=== PATIENT | female | born 1945 | race Caucasian/White ===

== ENCOUNTER 2017-03-14 17:29 | Inpatient (IN) ==
[~2017-03-14 17:29] MED LIST: LIDOCAINE 2% 5 ML VIAL ONE; PROPOFOL 200 MG/20 ML VIAL IV ONE
[2017-03-14] MEDS ORDERED: ACETAMINOPHEN 325 MG TABLET PO PRN (18:13)
[2017-03-14] MEDS ORDERED: BUDESONIDE 0.25 MG/2 ML NEB RESP TX PRN (18:13)
[2017-03-14] MEDS ORDERED: NITROGLYCERIN SL 0.4 MG TABLET SL PRN (18:13)
[2017-03-14] MEDS ORDERED: ALBUTEROL 0.63 MG/3 ML NEB RESP TX PRN (18:13)
--- NOTE | 2017-03-14 18:25 | Gastrointestinal H&P ---
Assessment and Plan - Time spent with patient Time spent with patient: Greater than 30 minutes (1) GI bleed Status: Acute Assessment and plan: Patient appears stable but has had significant GI bleeding, probably upper GI tract with melena, over the last few days. She is on Plavix and has significant coronary disease with admission definitely indicated. Plan to observe with serial hemoglobins, hold Plavix and Celebrex, and continue PPI therapy. Blood product support as needed. She will need upper endoscopy at some point to evaluate bleeding and also solid food dysphagia. Current Visit: Yes (2) Coronary artery disease Status: Acute Current Visit: No (3) Type II diabetes mellitus Status: Acute Current Visit: Yes (4) Obstructive sleep apnea Status: Acute Current Visit: No History of Present Illness Chief complaint: Black stools for 3 days History of present illness: Ms. Theodore is a 71 year old female with coronary artery disease on Plavix, obstructive sleep apnea, asthma and type 2 diabetes mellitus presented to clinic today with complaint of black stools for the last 3 days. 2 days ago she had 4 loose stools, one yesterday, and 1 today. She denies hematemesis. Patient states that she has had intermittent nausea and vomiting sporadically over the last few months with no abdominal pain. Her weight is stable. On presentation to clinic today she appeared stable with normal hemodynamics but had black strongly heme positive stool on rectal exam. [place] alone. Patient does take Celebrex daily for arthritis symptoms. She denies taking other nonsteroidal medications. Her weight has been stable. She has continued to take Plavix with her last dose this morning. Patient denies chest pain or increased shortness of breath. Lab studies are pending. She apparently had a cardiac catheterization in [place] in 2013 with a 90% LAD calcified lesion which could not be treated therapeutically and has been on Plavix/medical therapy since. She also has history of paroxysmal atrial fibrillation and has been followed by Dr. Coronado the last few years. Home Medications Medication Instructions Recorded Confirmed Type Celecoxib [Celebrex] 200 mg PO DAILY 10/12/14 09/09/15 History Docusate Sodium [Colace] 100 mg PO BEDTIME 10/12/14 09/09/15 History HYDROcodone/ACETAMIN 7.5-325 1 tablet PO Q6H PRN 10/12/14 09/09/15 History [[place] 7.5-325] Levothyroxine Tab [Synthroid Tab] 50 mcg PO DAILY@0700 10/12/14 09/09/15 History Metformin HCl [Metformin HCl ER] 1,000 mg PO BID 10/12/14 09/09/15 History Multivitamin [Multivitamins] 1 each PO DAILY 10/12/14 09/09/15 History Ondansetron Tab [Zofran Tab] 8 mg PO DAILY PRN 10/12/14 09/09/15 History Zafirlukast [Accolate] 20 mg PO BIDAC 10/12/14 09/09/15 History predniSONE TAB 5 mg PO DAILY 10/12/14 09/09/15 History Albuterol Neb [Proventil Neb] 0.63 mg RESP TX RT Q4H PRN 10/13/14 09/09/15 History Budesonide Neb [Pulmicort Respules] 0.25 mg RESP TX Q4HR PRN 10/13/14 09/09/15 History Magnesium Chloride [Slow Mag] 128 mg PO BID 10/13/14 09/09/15 History Furosemide Tab [Lasix Tab] 40 mg PO DAILY #30 tablet 11/10/14 09/09/15 Rx Losartan [Cozaar] 50 mg PO DAILY #30 tablet 11/10/14 09/09/15 Rx Diltiazem Cd Cap [Cardizem Cd] 120 mg PO BID 04/17/15 09/09/15 History Nitroglycerin Sl Tab [Nitrostat] 0.4 mg SL Q5M PRN #25 tablet 04/20/15 09/09/15 Rx Sodium Bicarb Tab 650 mg PO BID 09/12/15 09/12/15 History dimenhyDRINATE [Dimenhydrinate] 1 tablet PO BID 09/12/15 09/12/15 History raNITIdine HCl [Ranitidine HCl] 150 mg PO BID 09/12/15 09/12/15 History Acetaminophen Tab [Tylenol Tab] 650 mg PO Q6H PRN #0 tablet 09/25/15 Rx Acetic Acid 0.25% Irrigation 25 ml IRRIG DAILY #120 ml 09/25/15 Rx Amoxicillin/Clav Tab [Augmentin 875 mg PO Q12H #30 tablet 09/25/15 Rx Tab] Aspirin EC Tab 81 mg PO DAILY #90 tablet 09/25/15 Rx Atenolol [Tenormin] 25 mg PO BID tablet 09/25/15 Rx Budesonide Neb [Pulmicort Respules] 0.25 mg RESP TX Q4HR PRN #0 09/25/15 Rx nebulizer solution Calcium (Carb)/Vit D 500-200 1 tablet PO DAILY tablet 09/25/15 Rx [Oscal 500 + D] Clopidogrel [Plavix] 75 mg PO DAILY #100 tablet 09/25/15 Rx Diltiazem Cd Cap [Cardizem CD] 120 mg PO BID capsule 09/25/15 Rx Docusate Sodium Cap [Colace Cap] 100 mg PO BID capsule 09/25/15 Rx Furosemide Inj [Lasix Inj] 40 mg IV BID DIURETIC vial 09/25/15 Rx HYDROcodone/ACETAMIN 5-325 [[place] 1 tablet PO Q6H #30 tablet 09/25/15 Rx 5-325] Insulin Lispro [HumaLOG] See Protocol SUBCUT ACHS ml 09/25/15 Rx Levothyroxine Tab [Synthroid Tab] 50 mcg PO DAILY@0700 tablet 09/25/15 Rx Magnesium Chloride [Slow Mag] 128 mg PO BID tablet 09/25/15 Rx Nitroglycerin Sl Tab [Nitrostat] 0.4 mg SL Q5M PRN #0 tablet 09/25/15 Rx Skin Healing Oint (Aquaphor) 1 applic TOP DAILY ointment 09/25/15 Rx [Aquaphor] predniSONE TAB [PredniSONE] 5 mg PO DAILY tablet 09/25/15 Rx Allergies Allergy/AdvReac Type Severity Reaction Status Date / Time Sulfa (Sulfonamide Allergy Intermediate RASH Verified 10/12/14 17:47 Antibiotics) Medical,Surgical,& Family Hx - Medical History Cardio: History of: Cardiac Dysrhythmia (atrial fib), CHF, CAD (90 % BLOCKAGE ON FRONT OF HEART--it could not be crossed with a balloon or.), Hypertension, Cardiovascular Problems Neurology: No history of: Seizures Endocrine: History of: Diabetes Mellitus (NIDDM), Thyroid Disorder No history of: Diabetes Mellitus (IDDM) Rheumatology: History of;: Rheumatoid Arthritis Respiratory: History of: Asthma, Obstructive Sleep Apnea (DOES NOT USE MACHINE.) Genitourinary: History of: Kidney Stones Gastrointestinal: History of: Diverticulitis/ Diverticulosis, GERD, Gastrointestinal Bleed, Polyps, GI Problems (DIVERTICULOSIS, COLON POLYPS, RECTAL BLEEDING) Musculoskeletal: History of: Back/Neck Problems (LUMPECTOMY OF LEFT BREAST, BENIGN), Musculoskeletal Problems (ARTHRITIS,) Hematology: No history of: Anemia, Blood Transfusion Reaction Other: No history of: Anesthesia Reactions - Surgical History Cardiac Surgeries: Sugical HX of: Cardiac Catheterization (2012) Thoracic Surgeries: Surgical HX of;: Lithotripsy HEENT Surgeries: Patient denies: Thyroid Surgery Abdominal Surgeries: Surgical HX of: Colonoscopy (COLON POLYPS, DIVERTICULOSIS) Reproductive Surgeries: Surgical HX of;: Breast Surgery Patient denies;: Gynecologic Surgery Orthopedic Surgeries: Surgical HX of;: Orthopedic Surgery (OSTEOMYELITIS ON L FOOT), Spinal Surgery (BACK SURGERY) - Family History Family History: Reports;: Family Cancer (BROTHER-- LUNG CANCER), Family Heart Disease (Mother, father) - Social History Smoking Status: Never smoker - Constitutional Constitutional: Absent: anorexia, chills, fever(s), weight loss - EENT Nose, mouth and throat: Present: dysphagia. Absent: epistaxis - Cardiovascular Cardiovascular: Absent: chest pain with activity, orthopnea, palpitations, PND - Respiratory Respiratory: Absent: cough, dyspnea, hemoptysis - Gastrointestinal Gastrointestinal: Present: as per HPI, dysphagia, nausea, vomiting. Absent: abdominal pain, bloating - Genitourinary Genitourinary: Absent: dysuria, flank pain, hematuria - Neurological Neurological: Absent: abnormal speech, behavioral changes, focal weakness - Psychiatric Psychiatric: Absent: anxiety, depression - Endocrine Endocrine: Absent: cold intolerance, heat intolerance - Hematologic/Lymphatic Hematologic/Lymphatic: Absent: easy bleeding, easy bruising Exam - Constitutional General appearance: no acute distress, over weight - Head Head exam: Present: normocephalic, atraumatic - Eye Eye exam: Present: EOMI. Absent: conjunctival injection, scleral icterus Pupils: Present: CECILIA, normal accommodation - Respiratory Respiratory exam: Present: clear to auscultation bilaterally. Absent: wheezes - Cardiovascular Cardiovascular exam: Present: regular rate and rhythm. Absent: gallop, rubs - GI/Abdominal GI/Abdominal exam: Present: normal bowel sounds, soft. Absent: distended, organomegaly, tenderness - Extremities Exam Extremities exam: Absent: calf tenderness, edema - Neurological Exam Neurological exam: Present: alert, oriented X3, CN II-XII intact. Absent: motor sensory deficit - Psychiatric Psychiatric exam: Present: normal affect, normal mood - Skin Skin exam: Present: warm, dry. Absent: pallor
[2017-03-14 19:35] LABS: Hematocrit 30.4 VOL% (35.7-47.0); Hemoglobin 9.7 GM/DL (12.0-16.0); Mean Corpuscular HGB Conc 31.9 GM/DL (32-36); Mean Corpuscular Hemoglobin 28 PG (27-34); Mean Corpuscular Volume 87.6 FL (87-102); Mean Platelet Volume 10.6 FL (9.6-12.0); Platelet Count 382 T/CUMM (130-400); Red Blood Count 3.47 MC/CUMM (3.8-5.5); Red Cell Distribution Width 15.7 % (9.3-17.3); White Blood Count 12.9 T/CUMM (4-12)
[2017-03-14 19:36] LABS: Basophils # 0.1 10*3/uL (0.0-0.2); Basophils % 0.5 % (0.0-0.8); Eosinophils # 0.2 10*3/uL (0.0-0.87); Eosinophils % 1.6 % (0.00-10.9); Immature Granulocytes % 1.2 %; Immature Granulocytes Absolute 0.16 #; Lymphocytes # 2.4 10*3/uL (1.4-4.0); Lymphocytes % 18.3 % (21.3-54.2); Monocytes # 0.7 10*3/uL (0.11-0.8); Monocytes % 5.5 % (1.7-12.7); Neutrophils # 9.4 10*3/uL (1.4-7.4); Neutrophils % 72.9 % (38.7-73.9)
[2017-03-14 19:45] LABS: PT Patient Result 10.9 SECS
[2017-03-14 19:58] LABS: Alanine Aminotransferase 21 U/L (13-56); Albumin 3.2 G/DL (3.4-5.0); Alkaline Phosphatase 43 U/L (45-117); Aspartate Amino Transferase 14 U/L (0-37); Bilirubin,Total < 0.39 MG/DL (0.2-1.0); Blood Urea Nitrogen 47 MG/DL (7-18); Glucose 111 MG/DL (74-106); Potassium 4.8 MMOL/L (3.5-5.1); Sodium 143 MMOL/L (136-145); Total Protein 6.6 G/DL (6.4-8.3)
[2017-03-14] MEDS: ATENOLOL 25 MG TABLET PO SCH (20:55)
[2017-03-14] MEDS: DOCUSATE SODIUM 100 MG CAPSULE PO SCH (20:55)
[2017-03-14] MEDS: DILTIAZEM CD 120 MG CAPSULE PO SCH (20:56)
[2017-03-14] MEDS ORDERED: PANTOPRAZOLE 40 MG VIAL IV SCH (21:00)
[2017-03-14] MEDS: PANTOPRAZOLE 40 MG TABLET PO SCH (21:59)
[2017-03-15] MEDS ORDERED: ONDANSETRON 4 MG/2 ML VIAL IV PRN (02:00)
[2017-03-15] MEDS ORDERED: diphenhydrAMINE CAP 25 MG CAPSULE PO PRN (02:01)
[2017-03-15] MEDS: ONDANSETRON 4 MG TABLET PO PRN (02:36)
[2017-03-15 04:43] LABS: Hematocrit 24.1 VOL% (35.7-47.0); Hemoglobin 7.6 GM/DL (12.0-16.0)
[2017-03-15] MEDS ORDERED: SODIUM CHLORIDE 0.9% 250 ML IV PRN (05:00)
[2017-03-15] MEDS: SODIUM CHLORIDE 0.9% 1,000 ML IV SCH ×3 (05:33→18:05)
[2017-03-15] MEDS: LEVOTHYROXINE 50 MCG TABLET PO SCH (06:23)
--- NOTE | 2017-03-15 08:23 | EKG Report ---
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
[2017-03-15] MEDS ORDERED: SKIN HEALING OINT (AQUAPHOR) 50 GM TUBE TOP PRN (09:10)
[2017-03-15] MEDS ORDERED: CHLORHEXIDINE 4% SOLN 118 ML BOTTLE TOP ONE (09:10)
--- NOTE | 2017-03-15 09:17 | General Surgery Consult Note ---
Assessment and Plan - Time spent with patient Time spent with patient: Less than 30 minutes (1) Diabetic ulcer of both feet associated with diabetes mellitus due to underlying condition Problem details: Diabetic patient with what appears to be chronic osteo of the left calcaneus and new potentially arterial ulcers of the right foot. Status : Acute Assessment and plan: Impression: Diabetic ulceration of the left heel 2. Diabetic ulceration right medial malleolus Plan: Maintain present wound care and consider getting lower arterial vascular studies. Current Visit: No (2) Type II diabetes mellitus Status: Acute Assessment and plan: Impression: Diabetes type 2 under good control Current Visit: Yes (3) Coronary artery disease Status: Acute Assessment and plan: Impression: Coronary artery disease Plan: Dr. Coronado following this process and I think he feels that it is not unreconstructable. Current Visit: No (4) Arterial insufficiency of lower extremity Status: Acute Assessment and plan: Impression: Peripheral arterial disease lower extremities right greater than left. Plan: Considering lower arterial vascular study. We will consider the possibility of a repeat CTA at some point. Current Visit: No History of Present Illness Chief complaint: Bilateral lower extremity ulcers and peripheral arterial disease History of present illness: Ms. Theodore is a 71 year old female white who has been coming to the wound healing center for some time to deal with chronic ulcers of the left heel and the right ankle. She has had some degree of improvement especially in the left heel ulcer at this time. We attempted biologicals to the right ankle improve the base of it but never did get any epithelialization and start over it at this time. She was admitted by Dr. davis for because of GI bleed following the use of some antibiotics. She complained of some left lower quadrant abdominal pain which could represent some diverticulitis a culture some nausea and vomiting. She was placed on some antibiotics got better but then following the end of the antibiotic she began to have passed some bloody stools. She is on Plavix because of coronary artery disease which is significant as well as peripheral arterial disease also. Will start maintained wound care at this time. Home Medications Medication Instructions Recorded Confirmed Type Celecoxib [Celebrex] 200 mg PO DAILY 10/12/14 03/14/17 History HYDROcodone/ACETAMIN 7.5-325 7.5 tablet PO Q6H PRN 10/12/14 03/14/17 History [[place] 7.5-325] Levothyroxine Tab [Synthroid Tab] 50 mcg PO DAILY@0700 10/12/14 03/14/17 History Metformin HCl [Metformin HCl ER] 1,000 mg PO BID 10/12/14 03/14/17 History Multivitamin [Multivitamins] 1 each PO DAILY 10/12/14 03/14/17 History Zafirlukast [Accolate] 20 mg PO BIDAC 10/12/14 03/14/17 History Furosemide Tab [Lasix Tab] 40 mg PO DAILY #30 tablet 11/10/14 03/14/17 Rx Losartan [Cozaar] 50 mg PO DAILY #30 tablet 11/10/14 03/14/17 Rx Sodium Bicarb Tab 650 mg PO BID 09/12/15 03/14/17 History dimenhyDRINATE [Dimenhydrinate] 1 tablet PO BID 09/12/15 03/14/17 History Aspirin EC Tab 81 mg PO DAILY #90 tablet 09/25/15 03/14/17 Rx Atenolol [Tenormin] 25 mg PO BID tablet 09/25/15 03/14/17 Rx Clopidogrel [Plavix] 75 mg PO DAILY #100 tablet 09/25/15 03/14/17 Rx Magnesium Chloride [Slow Mag] 128 mg PO BID tablet 09/25/15 03/14/17 Rx Nitroglycerin Sl Tab [Nitrostat] 0.4 mg SL Q5M PRN #0 tablet 09/25/15 03/14/17 Rx predniSONE TAB [PredniSONE] 5 mg PO DAILY tablet 09/25/15 03/14/17 Rx Diltiazem Cd Cap [Cardizem CD] 120 mg PO BID 03/14/17 03/14/17 History Fenofibrate [Tricor] 140 mg PO DAILY 03/14/17 03/14/17 History Allergies Allergy/AdvReac Type Severity Reaction Status Date / Time Sulfa (Sulfonamide Allergy Intermediate RASH Verified 10/12/14 17:47 Antibiotics) Medical,Surgical,& Family Hx - Medical History Cardio: History of: Cardiac Dysrhythmia (atrial fib), CHF, CAD (90 % BLOCKAGE ON FRONT OF HEART--it could not be crossed with a balloon or.), Hypertension, Cardiovascular Problems Neurology: No history of: Seizures Endocrine: History of: Diabetes Mellitus (NIDDM), Thyroid Disorder No history of: Diabetes Mellitus (IDDM) Rheumatology: History of;: Rheumatoid Arthritis Respiratory: History of: Asthma, Obstructive Sleep Apnea (DOES NOT USE MACHINE.) Genitourinary: History of: Kidney Stones Gastrointestinal: History of: Diverticulitis/ Diverticulosis, GERD, Gastrointestinal Bleed, Polyps, GI Problems (DIVERTICULOSIS, COLON POLYPS, RECTAL BLEEDING) Musculoskeletal: History of: Back/Neck Problems (LUMPECTOMY OF LEFT BREAST, BENIGN), Musculoskeletal Problems (ARTHRITIS,) Hematology: No history of: Anemia, Blood Transfusion Reaction Other: No history of: Anesthesia Reactions - Surgical History Cardiac Surgeries: Sugical HX of: Cardiac Catheterization (2012) Thoracic Surgeries: Surgical HX of;: Lithotripsy HEENT Surgeries: Patient denies: Thyroid Surgery Abdominal Surgeries: Surgical HX of: Colonoscopy (COLON POLYPS, DIVERTICULOSIS) Reproductive Surgeries: Surgical HX of;: Breast Surgery Patient denies;: Gynecologic Surgery Orthopedic Surgeries: Surgical HX of;: Orthopedic Surgery (OSTEOMYELITIS ON L FOOT), Spinal Surgery (BACK SURGERY) - Family History Family History: Reports;: Family Cancer (BROTHER-- LUNG CANCER), Family Heart Disease (Mother, father) - Social History Smoking Status: Never smoker Frequency of Alcohol Use: None Type of Drug Use: None 12 point system: reviewed and no additional remarkable complaints except as stated Exam - Constitutional Vitals: Period Temp Pulse Resp BP Sys/[place] Pulse Ox Last 24 Hr 97 F-98.3 F 72-99 16-20 80-128/41-72 92-98 General appearance: mild distress - Head Head exam: Present: normal inspection - ENT ENT exam: Present: normal exam - Neck Neck exam: Present: normal inspection - Respiratory Respiratory exam: Present: clear to auscultation bilaterally, rales - Cardiovascular Cardiovascular exam: Present: RRR - GI/Abdominal GI/Abdominal exam: Present: hypoactive bowel sounds, soft. Absent: tenderness - Extremities Exam Extremities exam: Present: other (Ulcer of the left heel that is superficial with a good granulating base little bit of undermining. There is no ulcer of the medial malleolus on the right has a good granulating base but no epithelialization present.) - Neurological Exam Neurological exam: Present: alert, oriented X3, CN II-XII intact - Skin Skin exam: Present: normal color, warm, dry Results - Labs CBC & BMP: 03/15/17 04:29 03/14/17 18:55 Lab Results: I have reviewed the past 24 hour labs
--- NOTE | 2017-03-15 09:33 | Gastrointestinal Progress Note ---
Assessment and Plan (1) GI bleed Status: Acute Assessment and plan: 03/15-reports of rectal bleeding overnight with coffee-ground emesis as well. H& H is down this morning as noted below. She is currently receiving 2 units packed red blood cells. Continue to monitor serial H&H. Transfuse as necessary. Plan an addendum to followed by Dr. Turner. Current Visit: Yes Gastroenterology - PN: Subj Interval history: CC: GI bleed Patient is seen awake and alert sitting up in bed with nurse at bedside. States that she did not rest well last night due to she had what she states was multiple episodes of rectal bleeding. She also reports episode of nausea and vomiting with coffee-ground emesis. She is denying any abdominal pain at this time. She is received 1 unit of blood this morning and is awaiting to receive her second. H&H is noted at 7.6/24.1 which is down from 04/01 on yesterday. Abdomen soft, nontender. Her Plavix continues to be held at this time. ROS: Denies shortness of breath or chest pain Exam (Progress Note) - Constitutional Vitals: Period Temp Pulse Resp BP Sys/[place] Pulse Ox Last 24 Hr 97 F-98.3 F 72-99 16-20 80-128/41-72 92-98 General appearance: normal weight, no acute distress - Head Head exam: Present: normal inspection, normocephalic - Eye Eye exam: Present: other (Lids and conjunctive are unremarkable). Absent: scleral icterus - ENT ENT exam: Present: normal exam, normal oropharynx - Neck Neck exam: Present: normal inspection - Respiratory Respiratory exam: Present: clear to auscultation bilaterally. Absent: rales, rhonchi, wheezes - Cardiovascular Cardiovascular exam: Present: regular rate and rhythm. Absent: diastolic murmur , JVD, systolic murmur - GI/Abdominal GI/Abdominal exam: Present: normal bowel sounds, soft. Absent: ascites, distended, mass, organomegaly, tenderness - Extremities Exam Extremities exam: Present: normal inspection, full ROM - Back Exam Back exam: Present: normal inspection - Neurological Exam Neurological exam: Present: alert, oriented X3 - Psychiatric Psychiatric exam: Present: normal affect, normal mood - Skin Skin exam: Present: normal color, warm, dry Results - Labs CBC & BMP: 03/15/17 04:29 03/14/17 18:55 Lab Results: I have reviewed the past 24 hour labs
[2017-03-15] MEDS: PANTOPRAZOLE 40 MG TABLET PO SCH ×2 (09:48→21:03)
[2017-03-15] MEDS: FUROSEMIDE 40 MG TABLET PO SCH (09:48)
[2017-03-15] MEDS: ZAFIRLUKAST 20 MG TABLET PO SCH ×2 (09:48→17:10)
[2017-03-15] MEDS: ATENOLOL 25 MG TABLET PO SCH ×2 (11:16→21:03)
[2017-03-15] MEDS: DILTIAZEM CD 120 MG CAPSULE PO SCH ×2 (11:16→21:02)
[2017-03-15] MEDS: LOSARTAN 50 MG TABLET PO SCH (11:16)
--- NOTE | 2017-03-15 12:20 | Cardiology Consult Note ---
Elvis Richey April RN, am scribing for, and in the presence of, Kendrick Rodriguez MD 12:18. Assessment and Plan - Time spent with patient Time spent with patient: Greater than 30 minutes (Due to assessment, planning, documentation, medication review) (1) GI bleed Status: Acute Assessment and plan: Plavix is currently on hold and she is receiving packed red blood cells. Dr. Turner is following. Current Visit: Yes (2) Coronary artery disease Status: Chronic Assessment and plan: She denies chest pain. EKG is stable. Current Visit: Yes Qualifiers: Coronary Disease-Associated Artery/Lesion type: [place] artery [place] vs. transplanted heart: [place] heart Associated angina: without angina Qualified Code(s): I25.10 - Atherosclerotic heart disease of [place] coronary artery without angina pectoris (3) Paroxysmal atrial fibrillation Status: Chronic Assessment and plan: She is currently in sinus rhythm. She takes diltiazem and atenolol for rate control. Current Visit: No (4) Hypertension Status: Acute Assessment and plan: Her blood pressures have improved this morning. Her home medicines have been restarted. We will continue to monitor. Current Visit: Yes (5) Type II diabetes mellitus Status: Chronic Current Visit: Yes (6) Diabetic ulcer of both feet associated with diabetes mellitus due to underlying condition Problem details: Diabetic patient with what appears to be chronic osteo of the left calcaneus and new potentially arterial ulcers of the right foot. Status : Acute Assessment and plan: Dr. Banerjee is following. 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 Coronado PCP: Dr. Stephen Hoover and Delia Ms. Theodore is a 71 year old female with a history of CAD, NIDDM, BANDAR (she does not use CPAP), hypertension, paroxysmal edge fibrillation, and diabetic infection of feet. According to the patient and what I can gather Dr. Coronado's clinic note, she had a heart cath done in [place] 3-4 years ago that showed a 90% lesion of the LAD. Apparently there was severe calcification and and it was not stented. She was put on Plavix at that time. She had a stress test Dr. Coronado's office in October 2014. This was read as a normal perfusion scan with no evidence of inducible ischemia. Echocardiogram done in Dr. Coronado's office November 22, 2016 with ejection fraction 55%. Other surgical history includes back surgery, left foot surgeries, lumpectomy, bilateral cataract, and rectal fissure repair. Family history is positive for father with heart disease, mother with hypertension and heart disease, siblings with cancer, hypertension, heart disease, and diabetes. She reports she is a lifetime non-smoker. On March 05, she experienced abdominal pain and later that weeks saw her primary doctor who started her on 5 days of antibiotics. This did relieve the abdominal pain. On March 12 she began to notice blood in her stool. She states it was mostly black, but did have some bright red blood in it. She has had no further abdominal pain. She does report being weak. She states throughout the week she has had more blood in her stool and the weakness has gotten worse. Last night she also had episode of coffee-ground emesis. She had some low blood pressures during the night, this morning it is little better at 102/61. H&H on admission was 9.7 and 30.4, this morning it was down to 7.6 and 24.1. She is getting her first of 2 units of packed red blood cells. This morning she is seen sitting up on side of bed while receiving blood. She denies any chest pain, shortness of breath, palpitations, or dizziness. She states she did not sleep very well last night because she had multiple episodes of rectal bleeding. However she also says that she does not sleep very well at home. I have discussed in detail the particulars of this case and I have examined the patient and reviewed the patient's chart both current and old. I was directly involved in the patient's evaluation and management and I completely agree with Cristine Leal RN regarding this patient's evaluation and treatment plan. CC: Candido Mcrae - Home Medications and Allergies Home Medications: Home Medications Medication Instructions Recorded Confirmed Type Celecoxib [Celebrex] 200 mg PO DAILY 10/12/14 03/14/17 History HYDROcodone/ACETAMIN 7.5-325 7.5 tablet PO Q6H PRN 10/12/14 03/14/17 History [[place] 7.5-325] Levothyroxine Tab [Synthroid Tab] 50 mcg PO DAILY@0700 10/12/14 03/14/17 History Metformin HCl [Metformin HCl ER] 1,000 mg PO BID 10/12/14 03/14/17 History Multivitamin [Multivitamins] 1 each PO DAILY 10/12/14 03/14/17 History Zafirlukast [Accolate] 20 mg PO BIDAC 10/12/14 03/14/17 History Furosemide Tab [Lasix Tab] 40 mg PO DAILY #30 tablet 11/10/14 03/14/17 Rx Losartan [Cozaar] 50 mg PO DAILY #30 tablet 11/10/14 03/14/17 Rx Sodium Bicarb Tab 650 mg PO BID 09/12/15 03/14/17 History dimenhyDRINATE [Dimenhydrinate] 1 tablet PO BID 09/12/15 03/14/17 History Aspirin EC Tab 81 mg PO DAILY #90 tablet 09/25/15 03/14/17 Rx Atenolol [Tenormin] 25 mg PO BID tablet 09/25/15 03/14/17 Rx Clopidogrel [Plavix] 75 mg PO DAILY #100 tablet 09/25/15 03/14/17 Rx Magnesium Chloride [Slow Mag] 128 mg PO BID tablet 09/25/15 03/14/17 Rx Nitroglycerin Sl Tab [Nitrostat] 0.4 mg SL Q5M PRN #0 tablet 09/25/15 03/14/17 Rx predniSONE TAB [PredniSONE] 5 mg PO DAILY tablet 09/25/15 03/14/17 Rx Diltiazem Cd Cap [Cardizem CD] 120 mg PO BID 03/14/17 03/14/17 History Fenofibrate [Tricor] 140 mg PO DAILY 03/14/17 03/14/17 History Allergies/Adverse Reactions: Allergies Allergy/AdvReac Type Severity Reaction Status Date / Time Sulfa (Sulfonamide Allergy Intermediate RASH Verified 10/12/14 17:47 Antibiotics) - Constitutional Constitutional: Present: as per HPI - EENT Eyes: Present: requires corrective lense. Absent: blurry vision Ears: Present: decreased hearing. Absent: ear pain, tinnitus Nose, mouth and throat: Absent: dysphagia, epistaxis, headache(s), neck pain - Cardiovascular Cardiovascular: Absent: chest pain at rest, chest pain with activity, diaphoresis, dyspnea, dyspnea on exertion, edema, radiating jaw, neck or arm pain, lightheadedness, orthopnea, palpitations - Respiratory Respiratory: Absent: cough, dyspnea, hemoptysis, dyspnea on exertion, wheezing - Gastrointestinal Gastrointestinal: Present: coffee ground emesis, constipation, diarrhea, hematochezia, melena, nausea, vomiting. Absent: abdominal pain - Genitourinary Genitourinary: Absent: dysuria, hematuria - Musculoskeletal Musculoskeletal: Present: back pain, limited range of motion, muscle weakness - Neurological Neurological: Present: abnormal gait. Absent: confusion, dizziness, focal weakness, frequent falls, headache(s) - Psychiatric Psychiatric: Absent: anxiety, depression - Endocrine Endocrine: Present: fatigue - Hematologic/Lymphatic Hematologic/Lymphatic: Present: easy bleeding, easy bruising Medical,Surgical,& Family Hx - Medical History Cardio: History of: Cardiac Dysrhythmia (Paroxysmal atrial fibrillation), CHF, CAD, Hypertension Endocrine: History of: Diabetes Mellitus (NIDDM), Thyroid Disorder Rheumatology: History of;: Rheumatoid Arthritis Respiratory: History of: Asthma, Obstructive Sleep Apnea (DOES NOT USE MACHINE.) Genitourinary: History of: Kidney Stones Gastrointestinal: History of: Diverticulitis/ Diverticulosis, GERD, Gastrointestinal Bleed, Polyps, GI Problems (DIVERTICULOSIS, COLON POLYPS, RECTAL BLEEDING) Musculoskeletal: History of: Back/Neck Problems, Musculoskeletal Problems ( ARTHRITIS,) - Surgical History Cardiac Surgeries: Sugical HX of: Cardiac Catheterization (2012, this was done in [place]) Thoracic Surgeries: Surgical HX of;: Lithotripsy HEENT Surgeries: Surgical HX of: Eye Surgery (Bilateral cataract) Abdominal Surgeries: Surgical HX of: Colonoscopy (COLON POLYPS, DIVERTICULOSIS) Reproductive Surgeries: Surgical HX of;: Breast Surgery (Lumpectomy) Orthopedic Surgeries: Surgical HX of;: Orthopedic Surgery (OSTEOMYELITIS ON L FOOT), Spinal Surgery (BACK SURGERY) Additional Surgical History: Rectal fissure repair - Family History Family History: Reports;: Family Cancer (BROTHER-- LUNG CANCER), Family Diabetes (Brother), Family Heart Disease (Mother, father, sibling), Family Hypertension (Sister, mother) - Social History Smoking Status: Never smoker Have you smoked in the last 12 months: No Frequency of Alcohol Use: None Type of Drug Use: None Marital Status: Lives With:: Alone Functional capacity: uses cane/walker Physical Examination Vital Signs Temp Pulse Resp BP Pulse Ox 98.3 F 92 H 20 128/59 93 L 03/14/17 18:38 03/14/17 18:38 03/14/17 18:38 03/14/17 18:38 03/14/17 18:38 General: Present: Appears Well, No Apparent Distress HEENT: Present: PERRL, Mucus Membranes Moist Neck: Present: Supple Neck, Midline Trachea, No Bruit Cardiac: Present: Reg Rate and Rhythm, Systolic Murmur Lungs: Present: Normal Breath Sounds, No Wheeze, Rales, Rhonchi Neuro: Absent: Resting Tremor, Essential Tremor Abdomen: Present: Soft, Active Bowel Sounds, Non-Tender. Absent: Distended Skin: Present: Bruising, Other (She has diabetic ulcers to both feet that are covered in dressings). Absent: Rash, Suspicious Lesions Musculoskeletal: Present: Decreased Range of Motion, Pain in Joint Gait: Present: Poor Gait Extremities: Present: No Edema, Normal Upper Extr. Pulses, Normal Lower Extr. Pulses Result/EKG - Labs CBC & BMP: 03/15/17 04:29 03/14/17 18:55 Lab Results: I have reviewed the past 24 hour labs Labs: Laboratory Results - last 24 hr 03/14/17 03/14/17 03/14/17 18:55 18:55 18:55 WBC 12.9 H RBC 3.47 L Hgb 9.7 L Hct 30.4 L MCV 87.6 MCH 28 MCHC 31.9 L RDW 15.7 Plt Count 382 MPV 10.6 Neut % (Auto) 72.9 Lymph % (Auto) 18.3 L Clarke % (Auto) 5.5 Eos % (Auto) 1.6 Baso % (Auto) 0.5 Neut # (Auto) 9.4 H Lymph # (Auto) 2.4 Clarke # (Auto) 0.7 Eos # (Auto) 0.2 Baso # (Auto) 0.1 Immature Gran % 1.2 Nucleated RBC % 0.0 Immature Gran # 0.16 Nucleated RBCs # 0.00 Immature Plt Fraction 0.0 INR 1.0 PT Patient/Control Mix 10.9 Sodium 143 Potassium 4.8 Chloride 107 Carbon Dioxide 31 Anion Gap 9.8 BUN 47 H Creatinine 2.00 H GFR Calculation 31 BUN/Creatinine Ratio 23.00 H Glucose 111 H Calculated Osmolality 297.0 Calcium 9.0 Total Bilirubin < 0.39 AST 14 ALT 21 Alkaline Phosphatase 43 L Total Protein 6.6 Albumin 3.2 L Globulin 3.4 Albumin/Globulin Ratio 0.9 L Blood Type Antibody Screen Crossmatch Blood Bank Comment 03/14/17 03/15/17 03/15/17 18:55 04:29 04:29 WBC RBC Hgb 7.6 L D Hct 24.1 L MCV MCH MCHC RDW Plt Count MPV Neut % (Auto) Lymph % (Auto) Clarke % (Auto) Eos % (Auto) Baso % (Auto) Neut # (Auto) Lymph # (Auto) Clarke # (Auto) Eos # (Auto) Baso # (Auto) Immature Gran % Nucleated RBC % Immature Gran # Nucleated RBCs # Immature Plt Fraction INR PT Patient/Control Mix Sodium Potassium Chloride Carbon Dioxide Anion Gap BUN Creatinine GFR Calculation BUN/Creatinine Ratio Glucose Calculated Osmolality Calcium Total Bilirubin AST ALT Alkaline Phosphatase Total Protein Albumin Globulin Albumin/Globulin Ratio Blood Type A POSITIVE Cancelled Antibody Screen Negative Cancelled Crossmatch See Detail Blood Bank Comment Cancelled 03/15/17 Unknown WBC RBC Hgb Hct MCV MCH MCHC RDW Plt Count MPV Neut % (Auto) Lymph % (Auto) Clarke % (Auto) Eos % (Auto) Baso % (Auto) Neut # (Auto) Lymph # (Auto) Clarke # (Auto) Eos # (Auto) Baso # (Auto) Immature Gran % Nucleated RBC % Immature Gran # Nucleated RBCs # Immature Plt Fraction INR PT Patient/Control Mix Sodium Potassium Chloride Carbon Dioxide Anion Gap BUN Creatinine GFR Calculation BUN/Creatinine Ratio Glucose Calculated Osmolality Calcium Total Bilirubin AST ALT Alkaline Phosphatase Total Protein Albumin Globulin Albumin/Globulin Ratio Blood Type A POSITIVE Antibody Screen Crossmatch Blood Bank Comment - EKG EKG results: interpreted by me EKG shows: sinus rhythm IMichael Wesley, MD, personally performed the services described in this documentation, ascribed by Cristine Leal RN in my presence, and it is both accurate and complete 220 .
[2017-03-15 16:21] LABS: Hemoglobin 8.9 GM/DL (12.0-16.0)
[2017-03-15 19:58] LABS: Hematocrit 27.6 VOL% (35.7-47.0); Hemoglobin 8.9 GM/DL (12.0-16.0)
[2017-03-15] MEDS: DOCUSATE SODIUM 100 MG CAPSULE PO SCH (21:02)
[2017-03-15] MEDS: ZINC OXIDE PASTE 113 GM TUBE TOP SCH (21:04)
[2017-03-15] MEDS: ACETIC ACID 0.25% IRRIGATION 1,000 ML BOTTLE IRRIG SCH (21:05)
[2017-03-16 05:58] LABS: Hematocrit 25.5 VOL% (35.7-47.0); Hemoglobin 8.1 GM/DL (12.0-16.0)
[2017-03-16] MEDS: LEVOTHYROXINE 50 MCG TABLET PO SCH (06:04)
[2017-03-16] MEDS: ZINC OXIDE PASTE 113 GM TUBE TOP SCH ×2 (09:20→20:46)
[2017-03-16] MEDS: ZAFIRLUKAST 20 MG TABLET PO SCH ×2 (09:22→17:12)
[2017-03-16] MEDS: PANTOPRAZOLE 40 MG TABLET PO SCH ×2 (09:23→20:44)
[2017-03-16] MEDS: FUROSEMIDE 40 MG TABLET PO SCH (09:23)
--- NOTE | 2017-03-16 10:55 | Gastrointestinal Progress Note ---
Assessment and Plan (1) GI bleed Status: Acute Assessment and plan: 03/16-Small amt of bleeding with bowel movement this morning. No Nausea or vomiting. HH is holding at this time. Tolerating diet. Plan and addendum to follow by Dr Turner. 03/15-reports of rectal bleeding overnight with coffee-ground emesis as well. H& H is down this morning as noted below. She is currently receiving 2 units packed red blood cells. Continue to monitor serial H&H. Transfuse as necessary. Plan an addendum to followed by Dr. Turner. Current Visit: Yes Gastroenterology - PN: Subj Interval history: CC: GI Bleed Pt is seen, awake and alert, sitting up in bed. States she had a restful night and overall is feeling better. She states she had one small episode of bleeding this morning with a bowel movement but no further nausea and vomiting. She denies any abdominal pain. HH is stable at 8/25 following 2 units of PRBC on yesterday. Her Plavix continues to be held. Abdomen is soft, nontender. ROS: Denies SOB or chest pain Exam (Progress Note) - Constitutional Vitals: Period Temp Pulse Resp BP Sys/[place] Pulse Ox Last 24 Hr 97.1 F-98.3 F 67-97 18-20 82-129/41-71 94-97 - Other Additional findings: General appearance: normal weight, no acute distress - Head Head exam: Present: normal inspection, normocephalic - Eye Eye exam: Present: other (Lids and conjunctive are unremarkable). Absent: scleral icterus - ENT ENT exam: Present: normal exam, normal oropharynx - Neck Neck exam: Present: normal inspection - Respiratory Respiratory exam: Present: clear to auscultation bilaterally. Absent: rales, rhonchi, wheezes - Cardiovascular Cardiovascular exam: Present: regular rate and rhythm. Absent: diastolic murmur , JVD, systolic murmur - GI/Abdominal GI/Abdominal exam: Present: normal bowel sounds, soft. Absent: ascites, distended, mass, organomegaly, tenderness - Extremities Exam Extremities exam: Present: normal inspection, full ROM - Back Exam Back exam: Present: normal inspection - Neurological Exam Neurological exam: Present: alert, oriented X3 - Psychiatric Psychiatric exam: Present: normal affect, normal mood - Skin Skin exam: Present: normal color, warm, dry Results - Labs CBC & BMP: 03/16/17 04:03 03/14/17 18:55 Lab Results: I have reviewed the past 24 hour labs
[2017-03-16 12:11] LABS: Hematocrit 28.7 VOL% (35.7-47.0); Hemoglobin 9.2 GM/DL (12.0-16.0)
--- NOTE | 2017-03-16 13:49 | Cardiology Progress Note ---
Elvis Richey April, RN, am scribing for, and in the presence of, Kendrick Rodriguez MD 13:48. Assessment and Plan (1) GI bleed Status: Acute Assessment and plan: Plavix is currently on hold and she received 2 units of packed red blood cells yesterday. Dr. Turner is following. Current Visit: Yes (2) Coronary artery disease Status: Chronic Assessment and plan: This is stable. She denies chest pain. Current Visit: Yes Qualifiers: Coronary Disease-Associated Artery/Lesion type: [place] artery [place] vs. transplanted heart: [place] heart Associated angina: without angina Qualified Code(s): I25.10 - Atherosclerotic heart disease of [place] coronary artery without angina pectoris (3) Paroxysmal atrial fibrillation Status: Chronic Assessment and plan: She is in atrial fibrillation and is rate controlled. She takes diltiazem and atenolol for rate control. Current Visit: No (4) Hypertension Status: Acute Assessment and plan: Her blood pressures have been stable. Her home medicines have been restarted. We will continue to monitor. Current Visit: Yes (5) Type II diabetes mellitus Status: Chronic Current Visit: Yes (6) Diabetic ulcer of both feet associated with diabetes mellitus due to underlying condition Problem details: Diabetic patient with what appears to be chronic osteo of the left calcaneus and new potentially arterial ulcers of the right foot. Status : Acute Assessment and plan: Dr. Banerjee is following. Current Visit: No (7) Obstructive sleep apnea Status: Chronic Current Visit: Yes Cardiology - PN: Subj Interval history: Dietitian Research: Dr. Coronado PCP: Dr. Stephen Hoover and Delia Summary: Ms. Theodore is a 71 year old female with a history of CAD, NIDDM, BANDAR ( she does not use CPAP), hypertension, paroxysmal atrial fibrillation, and diabetic infection of feet. According to the patient and what I can gather from Dr. Coronado's clinic note, she had a heart cath done in [place] 3-4 years ago that showed a 90% lesion of the LAD. Apparently there was severe calcification and and it was not stented. She was put on Plavix at that time. She had a stress test Dr. Coronado's office in October 2014. This was read as a normal perfusion scan with no evidence of inducible ischemia. Echocardiogram done in Dr. Coronado's office November 22, 2016 with ejection fraction 55%. On March 05, she experienced abdominal pain and later that weeks saw her primary doctor who started her on 5 days of antibiotics. This did relieve the abdominal pain. On March 12 she began to notice blood in her stool. She states it was mostly black, but did have some bright red blood in it. She has had no further abdominal pain. She does report being weak. She states throughout the week she has had more blood in her stool and the weakness has gotten worse. Last night she also had episode of coffee-ground emesis. Initial visit March 15, 2017: This morning she is seen sitting up on side of bed while receiving blood. She denies any chest pain, shortness of breath, palpitations, or dizziness. She states she did not sleep very well last night because she had multiple episodes of rectal bleeding. However she also says that she does not sleep very well at home. She had some low blood pressures during the night, this morning it is little better at 102/61. H&H on admission was 9.7 and 30.4, this morning it was down to 7.6 and 24.1. She is getting her first of 2 units of packed red blood cells. March 16, 2017: Ms. Theodore is seen resting in bed. She denies any chest pain or shortness of breath. She continues to have some dark black stool mixed with bright red, but she states that it is not as much as it was. We have discontinued her Plavix. Vital signs were stable throughout the night. H&H this morning is 8.1 and 25.5. nuclear monitoring technician currently shows atrial fibrillation with heart rates in the 90s. She has had a significant GI bleed this admission. She is in atrial fibrillation and that may be the reason why Plavix was continued beyond her 1 year post stent. Because of her A. fib she likely needs a little more potent anticoagulation which is not possible currently. We will continue following. I have discussed in detail the particulars of this case and I have examined the patient and reviewed the patient's chart both current and old. I was directly involved in the patient's evaluation and management and I completely agree with [Cristine Leal RN] regarding this patient's evaluation and treatment plan. Exam (Progress Note) - Constitutional Vitals: Period Temp Pulse Resp BP Sys/[place] Pulse Ox Last 24 Hr 97.1 F-98.3 F 67-97 18-20 82-129/41-71 93-97 Exam: General: Present: Appears Well, No Apparent Distress HEENT: Present: PERRL, Mucus Membranes Moist Neck: Present: Supple Neck, Midline Trachea, No Bruit Cardiac: Present: Reg Rate and Rhythm, Systolic Murmur Lungs: Present: Normal Breath Sounds, No Wheeze, Rales, Rhonchi Neuro: Absent: Resting Tremor, Essential Tremor Abdomen: Present: Soft, Active Bowel Sounds, Non-Tender. Absent: Distended Skin: Present: Bruising, Other (She has diabetic ulcers to both feet that are covered in dressings). Absent: Rash, Suspicious Lesions Musculoskeletal: Present: Decreased Range of Motion, Pain in Joint Gait: Present: Poor Gait Extremities: Present: No Edema, Normal Upper Extr. Pulses, Normal Lower Extr. Pulses Result/EKG - Labs CBC & BMP: 03/16/17 12:04 03/14/17 18:55 Lab Results: I have reviewed the past 24 hour labs Labs: Laboratory Results - last 24 hr 03/15/17 03/15/17 03/15/17 04:29 16:00 19:48 Hgb 8.9 L 8.9 L Hct 27.0 L 27.6 L Blood Type Cancelled Antibody Screen Cancelled Crossmatch See Detail Blood Bank Comment Cancelled 03/16/17 04:03 Hgb 8.1 L Hct 25.5 L Blood Type Antibody Screen Crossmatch Blood Bank Comment - EKG EKG results: interpreted by me EKG shows: atrial fibrillation I, Kendrick Rodriguez MD, personally performed the services described in this documentation, ascribed by Cristine Leal RN in my presence, and it is both accurate and complete [id number] .
[2017-03-16] MEDS: DILTIAZEM CD 120 MG CAPSULE PO SCH ×2 (17:11→20:46)
[2017-03-16] MEDS: LOSARTAN 50 MG TABLET PO SCH (17:11)
[2017-03-16] MEDS: ATENOLOL 25 MG TABLET PO SCH ×2 (17:12→20:46)
[2017-03-16] MEDS: ACETIC ACID 0.25% IRRIGATION 1,000 ML BOTTLE IRRIG SCH ×2 (18:30→20:46)
[2017-03-16] MEDS: SODIUM CHLORIDE 0.9% 1,000 ML IV SCH (19:55)
[2017-03-16] MEDS: ONDANSETRON 4 MG TABLET PO PRN (20:43)
[2017-03-16] MEDS: DOCUSATE SODIUM 100 MG CAPSULE PO SCH (20:44)
[2017-03-17 05:29] LABS: Hemoglobin 7.7 GM/DL (12.0-16.0)
[2017-03-17] MEDS: LEVOTHYROXINE 50 MCG TABLET PO SCH (06:32)
[2017-03-17] MEDS: DILTIAZEM CD 120 MG CAPSULE PO SCH ×2 (08:47→23:24)
[2017-03-17] MEDS: FUROSEMIDE 40 MG TABLET PO SCH (08:47)
[2017-03-17] MEDS: ACETIC ACID 0.25% IRRIGATION 1,000 ML BOTTLE IRRIG SCH ×2 (08:48→23:24)
[2017-03-17] MEDS: PANTOPRAZOLE 40 MG TABLET PO SCH ×2 (08:48→20:56)
[2017-03-17] MEDS: ATENOLOL 25 MG TABLET PO SCH ×2 (08:48→23:25)
[2017-03-17] MEDS: LOSARTAN 50 MG TABLET PO SCH (08:48)
[2017-03-17] MEDS: ZAFIRLUKAST 20 MG TABLET PO SCH ×2 (08:48→17:32)
[2017-03-17] MEDS: ZINC OXIDE PASTE 113 GM TUBE TOP SCH ×2 (08:48→23:24)
--- NOTE | 2017-03-17 09:20 | General Surgery Progress Note ---
Assessment and Plan (1) Diabetic ulcer of both feet associated with diabetes mellitus due to underlying condition Problem details: Diabetic patient with what appears to be chronic osteo of the left calcaneus and new potentially arterial ulcers of the right foot. Status : Acute Assessment and plan: Impression: Diabetic ulceration of the left heel 2. Diabetic ulceration right medial malleolus Plan: Maintain present wound care and consider getting lower arterial vascular studies. 03/17/2017 Patient continues to do well at this time having no further bloody bowel movements according to her. Her hematocrit though has dropped and seems to be holding around 24. They are planning to do scopes on Monday but instead a little surprised we have done a CT scan in the interim. Continue to do the basic wound care that we have to her feet that we have been doing and wound center and they continue to do well at this time. Her vascular studies do indicate a drop in pressures on the left side which is what we have known about before but I do not think we want to pursue this at this point time until we see where her bleeding is from. We will continue to follow her to see what we are dealing with here and continue present wound care Current Visit: No (2) Type II diabetes mellitus Status: Chronic Assessment and plan: Impression: Diabetes type 2 under good control Current Visit: Yes (3) Coronary artery disease Status: Chronic Assessment and plan: Impression: Coronary artery disease Plan: Dr. Coronado following this process and I think he feels that it is not unreconstructable. Current Visit: Yes Qualifiers: Coronary Disease-Associated Artery/Lesion type: [place] artery [place] vs. transplanted heart: [place] heart Associated angina: without angina Qualified Code(s): I25.10 - Atherosclerotic heart disease of [place] coronary artery without angina pectoris (4) Arterial insufficiency of lower extremity Status: Acute Assessment and plan: Impression: Peripheral arterial disease lower extremities right greater than left. Plan: Considering lower arterial vascular study. We will consider the possibility of a repeat CTA at some point. Current Visit: No Subjective Patient reports: Present: no new complaints, feels better, tolerating a regular diet, afebrile. Absent: blood in stool, nausea Exam - Constitutional Vitals: Period Temp Pulse Resp BP Sys/[place] Pulse Ox Last 24 Hr 96.9 F-98.2 F 72-108 14-20 88-122/46-77 91-98 General appearance: mild distress - Head Head exam: Present: normal inspection - Neck Neck exam: Present: normal inspection - Respiratory Respiratory exam: Present: clear to auscultation bilaterally - Cardiovascular Cardiovascular exam: Present: RRR - GI/Abdominal GI/Abdominal exam: Present: hypoactive bowel sounds, soft. Absent: tenderness - Extremities Exam Extremities exam: Present: other (Ulcers remain clean and no sign of any further tissue breakdown and dressings are in place) - Back Exam Back exam: Present: normal inspection - Neurological Exam Neurological exam: Present: alert, oriented X3, CN II-XII intact - Skin Skin exam: Present: normal color, warm, dry Results - Labs CBC & BMP: 03/17/17 05:12 03/14/17 18:55 Lab Results: I have reviewed the past 24 hour labs
--- NOTE | 2017-03-17 09:40 | Gastrointestinal Progress Note ---
Assessment and Plan (1) GI bleed Status: Acute Assessment and plan: 03/17-no overt bleeding reported. Tolerating diet. H&H noted at 7/24. Nursing staff to reobtain IV access and will plan to transfuse 2 units of packed red blood cells. Plan an addendum to followed by Dr. Turner peer 03/16-Small amt of bleeding with bowel movement this morning. No Nausea or vomiting. HH is holding at this time. Tolerating diet. Plan and addendum to follow by Dr Turner. 03/15-reports of rectal bleeding overnight with coffee-ground emesis as well. H& H is down this morning as noted below. She is currently receiving 2 units packed red blood cells. Continue to monitor serial H&H. Transfuse as necessary. Plan an addendum to followed by Dr. Turner. Current Visit: Yes Gastroenterology - PN: Subj Interval history: CC: GI bleed Patient is seen awake alert lying in bed. States she rested well last night. She denies any abdominal pain, nausea or vomiting. She denies any further overt bleeding at this time. She has a good appetite and is requesting to increase her diet. Her H&H is noted today to be down to 7/24. At this time we are tentatively planning for an EGD on Monday once her Plavix has been held adequate amount of time. Patient does not have IV access at this time however discussed with nursing staff that they will need to try to attempt to reobtain this for further transfusion. Abdomen is soft, nontender. ROS: Denies shortness of breath or chest pain Exam (Progress Note) - Constitutional Vitals: Period Temp Pulse Resp BP Sys/Bingham Pulse Ox Last 24 Hr 96.9 F-98.2 F 72-108 14-20 88-122/46-77 91-98 - Other Additional findings: General appearance: normal weight, no acute distress - Head Head exam: Present: normal inspection, normocephalic - Eye Eye exam: Present: other (Lids and conjunctive are unremarkable). Absent: scleral icterus - ENT ENT exam: Present: normal exam, normal oropharynx - Neck Neck exam: Present: normal inspection - Respiratory Respiratory exam: Present: clear to auscultation bilaterally. Absent: rales, rhonchi, wheezes - Cardiovascular Cardiovascular exam: Present: regular rate and rhythm. Absent: diastolic murmur , JVD, systolic murmur - GI/Abdominal GI/Abdominal exam: Present: normal bowel sounds, soft. Absent: ascites, distended, mass, organomegaly, tenderness - Extremities Exam Extremities exam: Present: normal inspection, full ROM - Back Exam Back exam: Present: normal inspection - Neurological Exam Neurological exam: Present: alert, oriented X3 - Psychiatric Psychiatric exam: Present: normal affect, normal mood - Skin Skin exam: Present: normal color, warm, dry Results - Labs CBC & BMP: 03/17/17 05:12 03/14/17 18:55 Lab Results: I have reviewed the past 24 hour labs
[2017-03-17] MEDS ORDERED: SODIUM CHLORIDE 0.9% 250 ML IV PRN (13:16)
[2017-03-17] MEDS ORDERED: hydrOXYzine HCL 25 MG TABLET PO PRN (15:10)
--- NOTE | 2017-03-17 16:21 | Cardiology Progress Note ---
Elvis Richey April RN, am scribing for, and in the presence of, Kendrick Rodriguez MD 16:21. Assessment and Plan (1) GI bleed Status: Acute Assessment and plan: Plavix is currently on hold and she received 2 units of packed red blood cells this admission. H&H today is 7.[address] Turner is following. Current Visit: Yes (2) Coronary artery disease Status: Chronic Assessment and plan: This is stable. She denies chest pain. Current Visit: Yes Qualifiers: Coronary Disease-Associated Artery/Lesion type: [place] artery [place] vs. transplanted heart: [place] heart Associated angina: without angina Qualified Code(s): I25.10 - Atherosclerotic heart disease of [place] coronary artery without angina pectoris (3) Paroxysmal atrial fibrillation Status: Chronic Assessment and plan: She is in atrial fibrillation and is rate controlled. There is a strip scanned in from yesterday afternoon with heart rate of 116. I spoke to the groundwater monitoring technician and she said throughout the night she was atrial fibrillation with heart rates in the 70s and 80s. She takes diltiazem and atenolol for rate control. Current Visit: No (4) Hypertension Status: Acute Assessment and plan: She was hypotensive during the night. Her atenolol and Cardizem were held last night. We will continue to monitor. Current Visit: Yes (5) Type II diabetes mellitus Status: Chronic Current Visit: Yes (6) Diabetic ulcer of both feet associated with diabetes mellitus due to underlying condition Problem details: Diabetic patient with what appears to be chronic osteo of the left calcaneus and new potentially arterial ulcers of the right foot. Status : Acute Assessment and plan: Dr. Banerjee is following. Current Visit: No (7) Obstructive sleep apnea Status: Chronic Current Visit: Yes Cardiology - PN: Subj Interval history: Rn Wellness: Dr. Coronado PCP: Dr. Stephen Hoover in [place] Summary: Ms. Theodore is a 71 year old female with a history of CAD, NIDDM, BANDAR ( she does not use CPAP), hypertension, paroxysmal atrial fibrillation, and diabetic infection of feet. According to the patient and what I can gather from Dr. Coronado's clinic note, she had a heart cath done in [place] 3-4 years ago that showed a 90% lesion of the LAD. Apparently there was severe calcification and and it was not stented. She was put on Plavix at that time. She had a stress test Dr. Coronado's office in October 2014. This was read as a normal perfusion scan with no evidence of inducible ischemia. Echocardiogram done in Dr. Coronado's office November 22, 2016 with ejection fraction 55%. On March 05, she experienced abdominal pain and later that week she saw her primary doctor who started her on 5 days of antibiotics. This did relieve the abdominal pain. On March 12 she began to notice blood in her stool. She states it was mostly black, but did have some bright red blood in it. She has had no further abdominal pain. She does report being weak. She states throughout the week she has had more blood in her stool and the weakness has gotten worse. Last night she also had episode of coffee-ground emesis. Initial visit March 15, 2017: This morning she is seen sitting up on side of bed while receiving blood. She denies any chest pain, shortness of breath, palpitations, or dizziness. She states she did not sleep very well last night because she had multiple episodes of rectal bleeding. However she also says that she does not sleep very well at home. She had some low blood pressures during the night, this morning it is little better at 102/61. H&H on admission was 9.7 and 30.4, this morning it was down to 7.6 and 24.1. She is getting her first of 2 units of packed red blood cells. March 16, 2017: Ms. Theodore is seen resting in bed. She denies any chest pain or shortness of breath. She continues to have some dark black stool mixed with bright red, but she states that it is not as much as it was. We have discontinued her Plavix. Vital signs were stable throughout the night. H&H this morning is 8.1 and 25.5. desk monitor currently shows atrial fibrillation with heart rates in the 90s. She has had a significant GI bleed this admission. She is in atrial fibrillation and that may be the reason why Plavix was continued beyond her 1 year post stent. Because of her A. fib she likely needs a little more potent anticoagulation which is not possible currently. We will continue following. March 17, 2017: Ms. Theodore states she feels better today. She denies any chest pain or shortness of breath. She reports she has had no blood in her stool last night or yesterday. Her blood pressure has been low, atenolol and Cardizem were held last night. H&H has dropped some, today it is 7.7 24.0. desk monitor currently shows sinus rhythm heart rates in the 80s. She is tentatively scheduled for EGD on Monday. I have discussed in detail the particulars of this case and I have examined the patient and reviewed the patient's chart both current and old. I was directly involved in the patient's evaluation and management and I completely agree with Cristine Leal RN regarding this patient's evaluation and treatment plan. Exam (Progress Note) - Constitutional Vitals: Period Temp Pulse Resp BP Sys/[place] Pulse Ox Last 24 Hr 96.9 F-98.2 F 72-108 14-20 88-122/46-77 91-98 Exam: General: Present: Appears Well, No Apparent Distress HEENT: Present: PERRL, Mucus Membranes Moist Neck: Present: Supple Neck, Midline Trachea, No Bruit Cardiac: Present: Reg Rate and Rhythm, Systolic Murmur Lungs: Present: Normal Breath Sounds, No Wheeze, Rales, Rhonchi Neuro: Absent: Resting Tremor, Essential Tremor Abdomen: Present: Soft, Active Bowel Sounds, Non-Tender. Absent: Distended Skin: Present: Bruising, Other (She has diabetic ulcers to both feet that are covered in dressings). Absent: Rash, Suspicious Lesions Musculoskeletal: Present: Decreased Range of Motion, Pain in Joint Gait: Present: Poor Gait Extremities: Present: No Edema, Normal Upper Extr. Pulses, Normal Lower Extr. Pulses Result/EKG - Labs CBC & BMP: 03/17/17 05:12 03/14/17 18:55 Lab Results: I have reviewed the past 24 hour labs Labs: Laboratory Results - last 24 hr 03/16/17 03/17/17 12:04 05:12 Hgb 9.2 L 7.7 L Hct 28.7 L 24.0 L - EKG EKG results: interpreted by me EKG shows: atrial fibrillation Michael Richey Wesley, MD, personally performed the services described in this documentation, ascribed by Crisitne Leal RN in my presence, and it is both accurate and complete 621 .
[2017-03-17] MEDS: SODIUM CHLORIDE 0.9% 1,000 ML IV SCH (18:37)
[2017-03-17] MEDS: DOCUSATE SODIUM 100 MG CAPSULE PO SCH (20:56)
[2017-03-17] MEDS: ONDANSETRON 4 MG TABLET PO PRN (20:59)
[2017-03-18 04:16] LABS: Basophils # 0.1 10*3/uL (0.0-0.2); Basophils % 0.7 % (0.0-0.8); Eosinophils # 0.6 10*3/uL (0.0-0.87); Eosinophils % 6.1 % (0.00-10.9); Hematocrit 28.9 VOL% (35.7-47.0); Hematocrit 29.9 VOL% (35.7-47.0); Hemoglobin 9.5 GM/DL (12.0-16.0); Hemoglobin 9.6 GM/DL (12.0-16.0); Immature Granulocytes % 1.8 %; Immature Granulocytes Absolute 0.16 #; Lymphocytes # 2.8 10*3/uL (1.4-4.0); Lymphocytes % 30.7 % (21.3-54.2); Mean Corpuscular HGB Conc 32.9 GM/DL (32-36); Mean Corpuscular Hemoglobin 28 PG (27-34); Mean Corpuscular Volume 86.5 FL (87-102); Mean Platelet Volume 10.2 FL (9.6-12.0); Monocytes % 10.7 % (1.7-12.7); NRBC # 0.03 10*3/uL; Neutrophils # 4.5 10*3/uL (1.4-7.4); Platelet Count 294 T/CUMM (130-400); Red Blood Count 3.34 MC/CUMM (3.8-5.5); Red Cell Distribution Width 15.7 % (9.3-17.3)
[2017-03-18] MEDS: LEVOTHYROXINE 50 MCG TABLET PO SCH (06:35)
[2017-03-18] MEDS: FUROSEMIDE 40 MG TABLET PO SCH (09:15)
[2017-03-18] MEDS: ATENOLOL 25 MG TABLET PO SCH ×2 (09:15→21:27)
[2017-03-18] MEDS: ZINC OXIDE PASTE 113 GM TUBE TOP SCH ×2 (09:16→21:29)
[2017-03-18] MEDS: PANTOPRAZOLE 40 MG TABLET PO SCH ×2 (09:16→21:28)
[2017-03-18] MEDS: DILTIAZEM CD 120 MG CAPSULE PO SCH ×2 (09:16→21:27)
[2017-03-18] MEDS: ACETIC ACID 0.25% IRRIGATION 1,000 ML BOTTLE IRRIG SCH ×2 (09:16→23:39)
[2017-03-18] MEDS: ZAFIRLUKAST 20 MG TABLET PO SCH ×2 (09:16→16:30)
[2017-03-18] MEDS: LOSARTAN 50 MG TABLET PO SCH (09:16)
--- NOTE | 2017-03-18 13:36 | Event Note ---
Chief complaint GI bleed Patient with no complaints of pain no nausea vomiting no active bleeding. Plavix is continuing to be held. Her appetite is okay. Plans for EGD rescheduled for Monday. Hematocrit is pending Review of systems she denies any shortness of breath or chest pain On exam vital signs are stable lungs clear to auscultation no respiratory distress Lids conjunctiva is unremarkable Neck is supple no JVD Heart regular rate and rhythm no murmur rub or gallop no edema Abdomen soft nondistended nontender no masses Extremities no clubbing cyanosis edema all 4 extremities. Recommendations-continue PPI treatment, monitor H&H and transfuse as required plan EGD Monday as Plavix is continuing to be held.
[2017-03-18] MEDS: SODIUM CHLORIDE 0.9% 1,000 ML IV SCH (18:20)
[2017-03-18] MEDS: DOCUSATE SODIUM 100 MG CAPSULE PO SCH (21:27)
[2017-03-18] MEDS: ONDANSETRON 4 MG TABLET PO PRN (21:28)
[2017-03-19] MEDS: LEVOTHYROXINE 50 MCG TABLET PO SCH (07:07)
[2017-03-19] MEDS: PANTOPRAZOLE 40 MG TABLET PO SCH ×2 (10:06→21:27)
[2017-03-19] MEDS: ZAFIRLUKAST 20 MG TABLET PO SCH ×2 (10:06→18:04)
[2017-03-19] MEDS: DILTIAZEM CD 120 MG CAPSULE PO SCH ×2 (10:06→21:26)
[2017-03-19] MEDS: LOSARTAN 50 MG TABLET PO SCH (10:06)
[2017-03-19] MEDS: FUROSEMIDE 40 MG TABLET PO SCH (10:06)
[2017-03-19] MEDS: ACETIC ACID 0.25% IRRIGATION 1,000 ML BOTTLE IRRIG SCH (10:07)
[2017-03-19] MEDS: ZINC OXIDE PASTE 113 GM TUBE TOP SCH (10:07)
[2017-03-19] MEDS: ATENOLOL 25 MG TABLET PO SCH ×2 (10:07→21:27)
--- NOTE | 2017-03-19 13:28 | Event Note ---
Chief complaint GI bleed No further complex bleeding or been reported she denies any complaints of abdominal pain there is no nausea or vomiting reported. Her Plavix has been held and plans for EGD in a.m. are noted. Review of systems denies any shortness of breath chest pain On exam she is afebrile vital signs are stable pharynx is benign lid conjunctiva is unremarkable neck is supple no JVD lungs clear all station of respiratory distress heart regular rate and rhythm no murmur abdomen soft nondistended nontender no masses no hepatosplenomegaly bowel sounds normoactive extremities no clubbing cyanosis or edema neurologic grossly nonfocal Recommendations: Proceed with EGD in a.m. with Dr. Turner scheduled. Continue PPI treatment and observe.
[2017-03-19] MEDS: SODIUM CHLORIDE 0.9% 1,000 ML IV SCH (18:04)
[2017-03-19] MEDS: DOCUSATE SODIUM 100 MG CAPSULE PO SCH (21:27)
[2017-03-19] MEDS: ONDANSETRON 4 MG TABLET PO PRN (21:28)
[2017-03-20] MEDS: ACETIC ACID 0.25% IRRIGATION 1,000 ML BOTTLE IRRIG SCH ×3 (01:35→22:28)
[2017-03-20] MEDS: ZINC OXIDE PASTE 113 GM TUBE TOP SCH ×3 (01:35→22:29)
[2017-03-20 06:39] LABS: Hematocrit 28.7 VOL% (35.7-47.0); Hemoglobin 9.1 GM/DL (12.0-16.0)
[2017-03-20] MEDS: LEVOTHYROXINE 50 MCG TABLET PO SCH (07:28)
--- NOTE | 2017-03-20 08:05 | General Surgery Progress Note ---
Assessment and Plan (1) Diabetic ulcer of both feet associated with diabetes mellitus due to underlying condition Problem details: Diabetic patient with what appears to be chronic osteo of the left calcaneus and new potentially arterial ulcers of the right foot. Status : Acute Assessment and plan: Impression: Diabetic ulceration of the left heel 2. Diabetic ulceration right medial malleolus Plan: Maintain present wound care and consider getting lower arterial vascular studies. 03/17/2017 Patient continues to do well at this time having no further bloody bowel movements according to her. Her hematocrit though has dropped and seems to be holding around 24. They are planning to do scopes on Monday but instead a little surprised we have done a CT scan in the interim. Continue to do the basic wound care that we have to her feet that we have been doing and wound center and they continue to do well at this time. Her vascular studies do indicate a drop in pressures on the left side which is what we have known about before but I do not think we want to pursue this at this point time until we see where her bleeding is from. We will continue to follow her to see what we are dealing with here and continue present wound care 03/20/2017 Patient is for scopes to determine what her bleeding source might be. Her wounds are stable on her legs at this time but the dressings are not done on the way I had ordered them. Will just maintain present wound care and then find out what her scope results are at this point. Current Visit: No (2) Type II diabetes mellitus Status: Chronic Assessment and plan: Impression: Diabetes type 2 under good control Current Visit: Yes (3) Coronary artery disease Status: Chronic Assessment and plan: Impression: Coronary artery disease Plan: Dr. Coronado following this process and I think he feels that it is not unreconstructable. Current Visit: Yes Qualifiers: Coronary Disease-Associated Artery/Lesion type: [place] artery [place] vs. transplanted heart: [place] heart Associated angina: without angina Qualified Code(s): I25.10 - Atherosclerotic heart disease of [place] coronary artery without angina pectoris (4) Arterial insufficiency of lower extremity Status: Acute Assessment and plan: Impression: Peripheral arterial disease lower extremities right greater than left. Plan: Considering lower arterial vascular study. We will consider the possibility of a repeat CTA at some point. Current Visit: No Subjective Patient reports: Present: feels better, tolerating liquids well, bowel movement (Not bloody), afebrile Exam - Constitutional Vitals: Period Temp Pulse Resp BP Sys/[place]ingham Pulse Ox Last 24 Hr 97.1 F-98.3 F 72-94 16-19 104-126/52-79 92-94 General appearance: mild distress - Head Head exam: Present: normal inspection - ENT ENT exam: Present: normal exam - Neck Neck exam: Present: normal inspection - Cardiovascular Cardiovascular exam: Present: RRR - GI/Abdominal GI/Abdominal exam: Present: hypoactive bowel sounds, soft - Extremities Exam Extremities exam: Present: other (Wounds on the right ankle and left heel are stable and clean at this time) - Back Exam Back exam: Present: normal inspection - Neurological Exam Neurological exam: Present: alert, oriented X3, CN II-XII intact - Skin Skin exam: Present: normal color, warm, dry Results - Labs CBC & BMP: 03/20/17 05:36 03/14/17 18:55 Lab Results: I have reviewed the past 24 hour labs
[2017-03-20] MEDS: ZAFIRLUKAST 20 MG TABLET PO SCH ×2 (09:04→18:14)
[2017-03-20 09:25] LABS: Albumin 2.4 G/DL (3.4-5.0); Bilirubin,Total 0.5 MG/DL (0.2-1.0); Calcium 8.6 MG/DL (8.5-10.1); Osmolality,Calculated 285.1 MOS/KG (273-304); Potassium 3.9 MMOL/L (3.5-5.1); Total Protein 5.3 G/DL (6.4-8.3)
--- NOTE | 2017-03-20 12:57 | History and Physical Update ---
History and Physical Update - History and Physical H&P was reviewed, the patient examined and there: are no changes in the patients condition since last H&P was completed. - Physical Exam Mental Status: alert and oriented Heart: regular rate and rhythm Lung: clear to auscultation Abdomen: within normal limits Vitals: within normal limits
[2017-03-20] MEDS ORDERED: PROPOFOL 200 MG/20 ML VIAL IV ONE (13:00)
[2017-03-20] MEDS ORDERED: LIDOCAINE 1% 5 ML VIAL ONE (13:00)
[2017-03-20] MEDS ORDERED: PHENYLEPHRINE 1 MG/10 ML SYRINGE IV ONE (13:00)
--- NOTE | 2017-03-20 13:15 | Operative Note ---
Date of procedure: 03/20/17 Pre-op diagnosis: GI bleed, hematemesis Procedure: Procedure: Esophagogastroduodenoscopy Brief clinical abstract: 71-year-old female was admitted with symptomatic anemia last week on Plavix with recent black stools. She had an episode within the first 24 hours with some coffee-ground emesis also. She has required transfusion of 4 units packed red blood cells. No further bleeding has been noted over the weekend. Patient does complain of off-and-on nausea for over a year. Indication for procedure: GI bleed, recent hematemesis Endoscopic findings:[After informed consent was obtained, the patient was placed in the left lateral decubitus position. The gastroscope was inserted in the upper esophagus under direct vision with no resistance encountered. Esophageal mucosa appeared normal down to the squamocolumnar junction. There was a moderately obstructive fibrous appearing stricture at that level consistent with reflux etiology. No erosions or ulcerations were seen. Distal to this was a 3 cm long hiatal hernia. The endoscope was advanced in the stomach which was carefully examined including retroflexed view of the cardia and fundus with no abnormality seen. The pyloric channel, duodenal bulb, second and third portion of the duodenum appeared normal. Ampulla was well visualized with no abnormality noted. The endoscope was removed and Johnson dilator size 54 Thai inserted in the upper esophagus and advanced beyond the level of the GE junction with mild resistance encountered. No blood was noted on the dilator afterwards and she had no chest pain. She appeared to tolerate the procedure well. Impression: #1 distal esophageal stricture secondary to GERD-status post bougie dilation #2 hiatal hernia #3 no bleeding source identified on upper endoscopy exam Recommendations: Colonoscopy tomorrow. Probably discharge after that if stable. Anesthesia: MAC Surgeon / Physician: Candido Turner Estimated blood loss: none Specimens: none sent Condition: stable Disposition: post procedure unit Results - Labs CBC & BMP: 03/20/17 05:36 03/20/17 05:36 Discharge Plan - Discharge Medications No Action HYDROcodone/ACETAMIN 7.5-325 [[place] 7.5-325] 7.5 tablet PO Q6H PRN PRN Reason: Pain Levothyroxine Tab [Synthroid Tab] 50 mcg PO DAILY@0700 Metformin HCl [Metformin HCl ER] 1,000 mg PO BID Zafirlukast [Accolate] 20 mg PO BIDAC Multivitamin [Multivitamins] 1 each PO DAILY Celecoxib [Celebrex] 200 mg PO DAILY Losartan [Cozaar] 50 mg PO DAILY #30 tablet Furosemide Tab [Lasix Tab] 40 mg PO DAILY #30 tablet Sodium Bicarb Tab 650 mg PO BID dimenhyDRINATE [Dimenhydrinate] 1 tablet PO BID Aspirin EC Tab 81 mg PO DAILY #90 tablet Nitroglycerin Sl Tab [Nitrostat] 0.4 mg SL Q5M PRN #0 tablet PRN Reason: Chest Pain Clopidogrel [Plavix] 75 mg PO DAILY #100 tablet predniSONE TAB [PredniSONE] 5 mg PO DAILY tablet Magnesium Chloride [Slow Mag] 128 mg PO BID tablet Atenolol [Tenormin] 25 mg PO BID tablet Fenofibrate [Tricor] 140 mg PO DAILY Diltiazem Cd Cap [Cardizem CD] 120 mg PO BID hydrOXYzine HCL TAB [Atarax Tab] 25 mg PO BID PRN PRN Reason: Itching - Follow Up or Referral - Forms/Instructions
--- NOTE | 2017-03-20 13:19 | Anesthesia Post-Op ---
Anesthesia Post OP - Post Ansesthetic Evaluation Patient seen in post op: Yes Resp: within normal limits CV: within normal limits Mental: within normal limits Temp: within normal limits Eaft-Na-Cgqpykryc: within normal limits Nausea and Vomiting: within normal limits Pain: within normal limits
[2017-03-20] MEDS ORDERED: POLYETHYLENE GLYCOL POWDER 255 GM BOTTLE PO ONE (18:00)
[2017-03-20] MEDS: DILTIAZEM CD 120 MG CAPSULE PO SCH ×2 (18:13→21:12)
[2017-03-20] MEDS: ATENOLOL 25 MG TABLET PO SCH ×2 (18:14→21:12)
[2017-03-20] MEDS: PANTOPRAZOLE 40 MG TABLET PO SCH ×2 (18:14→21:12)
[2017-03-20] MEDS: LOSARTAN 50 MG TABLET PO SCH (18:14)
[2017-03-20] MEDS: SODIUM CHLORIDE 0.9% 1,000 ML IV SCH (18:15)
[2017-03-20] MEDS: FUROSEMIDE 40 MG TABLET PO SCH (18:15)
[2017-03-20] MEDS: ONDANSETRON 4 MG TABLET PO PRN (20:10)
[2017-03-20] MEDS: DOCUSATE SODIUM 100 MG CAPSULE PO SCH (21:12)
[2017-03-21] MEDS ORDERED: MAGNESIUM CITRATE 300 ML BOTTLE PO ONE (06:00)
[2017-03-21] MEDS: LEVOTHYROXINE 50 MCG TABLET PO SCH (07:12)
[2017-03-21] MEDS: ZAFIRLUKAST 20 MG TABLET PO SCH ×2 (07:57→18:55)
--- NOTE | 2017-03-21 12:23 | Operative Note ---
Date of procedure: 03/21/17 Pre-op diagnosis: Recent GI bleed with anemia Procedure: Procedure note: Colonoscopy with snare polypectomy Physician: Dr. Fortunato Turner Brief clinical abstract: 71-year-old female was admitted with symptomatic anemia and recent dark stools. She had negative EGD yesterday. Patient was on Plavix on admission. Endoscopic findings: After informed consent was obtained, the patient was placed in the left lateral decubitus position. Digital rectal exam was performed with no palpable abnormalities felt. Pediatric videocolonoscope was inserted into the rectum and advanced to the cecum without difficulty. Retroflex view within the cecum was performed back to the level of the hepatic flexure. The endoscope was advanced back to the cecum and on withdrawal colonic mucosa was carefully examined. Bowel prep was of fairly good quality. Withdrawal time was over 6 months duration. There was mild brownish discoloration consistent with melanosis coli. Patient had extensive areas of punctate vascular malformation scattered in the cecum and proximal ascending colon with friability. This was felt to be too extensive and diffuse to coagulate these areas in the thin-walled ascending colon. Distal to the vascular pattern throughout the remainder of the colon appeared normal. Patient had extensive diverticulosis in the sigmoid colon. In the proximal rectum there was an approximately 1 polyp noted which was removed with coagulation retroflex view in the rectum also was notable for modest internal hemorrhoids. The endoscope was removed and patient appeared to tolerate the procedure well. Impression: #1 right colon vascular malformations-appears to be likely source of recent bleeding #2 melanosis coli #3 sigmoid diverticulosis #4 internal hemorrhoids Plan: Advance diet and could probably discharge home today. Would hold Plavix for at least another week. If she re-bled on that, she probably will not be able to tolerate stronger antiplatelet medications. F F Anesthesia: GETA (tiva) Surgeon / Physician: Candido Turner Estimated blood loss: none Specimens: other (Rectal polyp) Condition: stable Disposition: post procedure unit Results - Labs CBC & BMP: 03/20/17 05:36 03/20/17 05:36 Discharge Plan - Discharge Medications No Action HYDROcodone/ACETAMIN 7.5-325 [[place] 7.5-325] 7.5 tablet PO Q6H PRN PRN Reason: Pain Levothyroxine Tab [Synthroid Tab] 50 mcg PO DAILY@0700 Metformin HCl [Metformin HCl ER] 1,000 mg PO BID Zafirlukast [Accolate] 20 mg PO BIDAC Multivitamin [Multivitamins] 1 each PO DAILY Celecoxib [Celebrex] 200 mg PO DAILY Losartan [Cozaar] 50 mg PO DAILY #30 tablet Furosemide Tab [Lasix Tab] 40 mg PO DAILY #30 tablet Sodium Bicarb Tab 650 mg PO BID dimenhyDRINATE [Dimenhydrinate] 1 tablet PO BID Aspirin EC Tab 81 mg PO DAILY #90 tablet Nitroglycerin Sl Tab [Nitrostat] 0.4 mg SL Q5M PRN #0 tablet PRN Reason: Chest Pain Clopidogrel [Plavix] 75 mg PO DAILY #100 tablet predniSONE TAB [PredniSONE] 5 mg PO DAILY tablet Magnesium Chloride [Slow Mag] 128 mg PO BID tablet Atenolol [Tenormin] 25 mg PO BID tablet Fenofibrate [Tricor] 140 mg PO DAILY Diltiazem Cd Cap [Cardizem CD] 120 mg PO BID hydrOXYzine HCL TAB [Atarax Tab] 25 mg PO BID PRN PRN Reason: Itching - Follow Up or Referral - Forms/Instructions
--- NOTE | 2017-03-21 13:31 | Discharge Summary ---
<Brittany Neri - Last Filed: 03/21/17 13:29> Hospital Course - Hospital Course Hospital Course: Patient was admitted on 03/[address] Turner in clinic with complaint of onset of dark stools and intermittent nausea and vomiting. She was admitted to the hospital for evaluation and further workup and her Plavix was held at that time. Following admission later that evening, patient developed multiple episodes of bright red rectal bleeding as well as coffee-ground emesis. Her H& H was noted to drop from admission and she was transfused 2 units of blood on the evening of admission. She was transfused another 2 units of PRBC as well two days later for another drop in her HH. She underwent EGD on 03/20 with findings of esophageal stricture with dilation as well as HH without evidence of bleeding. She then underwent C-scope on today with findings of right colon AVMs, melanosis coli, sigmoid diverticulitis, internal hemorrhoids. At this time , her blood counts are holding at 03/30 and has required no further transfusions. She has had no further abdominal pain, nausea or vomiting as well. We will plan to discharge patient home today with holding her Plavix x 1 week and then she can resume this. She is to followup for repeat H/H with her PCP or [facility] in 2 weeks. - Time spent with patient Time with patient DS: Greater than 30 minutes Diagnosis - Discharge Diagnosis (1) GI bleed Status: Acute Discharge Plan - Discharge Data Disposition: Disch To Home/Self Care Condition at Discharge: Stable Discharge Diet: advance to your usual diet Activity: resume usual activities as tolerated Hygiene: no restrictions Weight Bearing at Discharge: full weight bearing Driving: no restrictions Contact your physician if you experience:: fever over 101, Bleeding, pain uncontrolled by pain medications - Discharge Medications No Action HYDROcodone/ACETAMIN 7.5-325 [[place] 7.5-325] 7.5 tablet PO Q6H PRN PRN Reason: Pain Levothyroxine Tab [Synthroid Tab] 50 mcg PO DAILY@0700 Metformin HCl [Metformin HCl ER] 1,000 mg PO BID Zafirlukast [Accolate] 20 mg PO BIDAC Multivitamin [Multivitamins] 1 each PO DAILY Celecoxib [Celebrex] 200 mg PO DAILY Losartan [Cozaar] 50 mg PO DAILY #30 tablet Furosemide Tab [Lasix Tab] 40 mg PO DAILY #30 tablet Sodium Bicarb Tab 650 mg PO BID dimenhyDRINATE [Dimenhydrinate] 1 tablet PO BID Aspirin EC Tab 81 mg PO DAILY #90 tablet Nitroglycerin Sl Tab [Nitrostat] 0.4 mg SL Q5M PRN #0 tablet PRN Reason: Chest Pain Clopidogrel [Plavix] 75 mg PO DAILY #100 tablet predniSONE TAB [PredniSONE] 5 mg PO DAILY tablet Magnesium Chloride [Slow Mag] 128 mg PO BID tablet Atenolol [Tenormin] 25 mg PO BID tablet Fenofibrate [Tricor] 140 mg PO DAILY Diltiazem Cd Cap [Cardizem CD] 120 mg PO BID hydrOXYzine HCL TAB [Atarax Tab] 25 mg PO BID PRN PRN Reason: Itching - Follow Up or Referral - Forms/Instructions Additional Discharge Instructions: Pt needs to have H/H drawn at PCP clinic or at [facility] in 2 weeks. No followup appt with Dr Turner at this time. Hold Plavix x 1 week and then resume. Exam - Constitutional Vitals: Period Temp Pulse Resp BP Sys/[place] Pulse Ox Last 24 Hr 97.1 F-98.3 F 69-90 16-20 101-130/49-70 92-99 General appearance: normal weight, no acute distress - Head Head exam: Present: normal inspection, normocephalic - Eye Eye exam: Present: other (lids and conjunctiva unremarkable). Absent: scleral icterus - ENT ENT exam: Present: normal exam, normal oropharynx - Neck Neck exam: Present: normal inspection - Respiratory Respiratory exam: Present: clear to auscultation bilaterally. Absent: rales, rhonchi, wheezes - Cardiovascular Cardiovascular exam: Present: regular rate and rhythm. Absent: diastolic murmur , JVD, systolic murmur - GI/Abdominal GI/Abdominal exam: Present: normal bowel sounds, soft. Absent: ascites, distended, mass, organomegaly, tenderness - Extremities Exam Extremities exam: Present: normal inspection, full ROM - Back Exam Back exam: Present: normal inspection - Neurological Exam Neurological exam: Present: alert, oriented X3 - Psychiatric Psychiatric exam: Present: normal affect, normal mood - Skin Skin exam: Present: normal color, warm, dry DS: Provider Date of admission: 03/14/17 18:09 Primary care physician: . No PCP Attending physician on admission: Candido Mcrae Consults: 03/14/17 18:17 Consult to Physician [CONS] Routine Comment: CAD known to you with GI bleed on Plavix Consulting Provider: Leighton Coronado Consulting Provider Notified: Yes When should Consulting Provider be notified: In am Consult to Specialist Group: Cardiology When should Consulting Provider be notified: Now Person Notified: DAYANA Date Notified: 03/15/17 Time Notified: 08:53 03/14/17 18:18 Consult to Physician [CONS] Routine Comment: Consulting Provider: Sadi Banerjee Consulting Provider Notified: Yes When should Consulting Provider be notified: Now Consult to Specialist Group: Surgery When should Consulting Provider be notified: Now Person Notified: CARLOS Date Notified: 03/15/17 Time Notified: 08:59 Discharging clinician: Asia Corrales Expected date of discharge: 03/21/17 <Candido Turner - Last Filed: 03/21/17 14:10> Diagnosis - Discharge Diagnosis (1) GI bleed Status: Acute (2) Coronary artery disease Status: Chronic (3) Type II diabetes mellitus Status: Chronic (4) Obstructive sleep apnea Status: Chronic
[2017-03-21] MEDS ORDERED: NITROGLYCERIN SL 0.4 MG TABLET SL PRN (13:54)
[2017-03-21] MEDS ORDERED: hydrOXYzine HCL 25 MG TABLET PO PRN (13:54)
[2017-03-21] MEDS: ACETIC ACID 0.25% IRRIGATION 1,000 ML BOTTLE IRRIG SCH (15:50)
[2017-03-21] MEDS: FUROSEMIDE 40 MG TABLET PO SCH (15:51)
[2017-03-21] MEDS: PANTOPRAZOLE 40 MG TABLET PO SCH (15:51)
[2017-03-21] MEDS: DILTIAZEM CD 120 MG CAPSULE PO SCH (15:51)
[2017-03-21] MEDS: ZINC OXIDE PASTE 113 GM TUBE TOP SCH (15:51)
[2017-03-21] MEDS: LOSARTAN 50 MG TABLET PO SCH (15:51)
[2017-03-21] MEDS: ATENOLOL 25 MG TABLET PO SCH (15:51)
[2017-03-21] MEDS ORDERED: DILTIAZEM CD 120 MG CAPSULE PO SCH (21:00)
[2017-03-21] MEDS ORDERED: MAGNESIUM CHLORIDE 64 MG TABLET PO SCH (21:00)
[2017-03-21] MEDS ORDERED: dimenhyDRINATE 50 MG TABLET PO SCH (21:00)
[2017-03-21] MEDS ORDERED: SODIUM BICARBONATE 650 MG TABLET PO SCH (21:00)
[2017-03-21 21:35] VITALS: BP 123/68
[2017-03-22] MEDS ORDERED: ASPIRIN EC 81 MG TABLET PO SCH (09:00)
[2017-03-22] MEDS ORDERED: predniSONE 5 MG TABLET PO SCH (09:00)
[2017-03-22] MEDS ORDERED: FENOFIBRATE 145 MG TABLET PO SCH (09:00)
[2017-03-22] MEDS ORDERED: CELECOXIB 200 MG CAPSULE PO SCH (09:00)
[2017-03-22] MEDS ORDERED: MULTIVITAMIN (CENTRUM) TABLET PO SCH (09:00)
--- NOTE | 2017-03-22 11:22 | Pathology Report from [facility] ---
[facility] ACCESSION # : [id number] PATIENT NAME : Kamilah Aburto ORDERING DR : MAGDALENA ROBLERO MD CLINICAL HX: GI bleed POST-OP DX: Rectal colon polyp SPECIMEN INFO: Rectal colon polyp GROSS DESCRIPTION: Received in formalin labeled KAMILAH ABURTO is a 0.5 x 0.4 cm morales polypoid mucosal tissue fragment submitted in one cassette. DIAGNOSIS FOR KAMILAH ABURTO: RIGHT COLON BIOPSY: Tubular adenoma. COLLECTED DATE: 03/21/2017 [facility] REPORT DATE: 03/22/2017 ELECTRONICALLY SIGNED BY: Hardeep Corona M.D. 03/22/2017 - 9:17:42 [facility]
== END 2017-03-21 16:50 | disposition home health service (06) | DRG 378 ==
LOC: N.4E 17:54
PROVIDERS: ADMIT Internal Medicine Gastroenterology; ATTEND Internal Medicine Gastroenterology

== ENCOUNTER 2017-03-29 16:09 | Inpatient (IN) ==
--- NOTE | 2017-03-29 16:39 | Emergency Department Note ---
Arrival - Arrival Chief Complaint: Shortness of Breath Stated Complaint: SOB ED Nursing Triage Note: pt to triage via wc with c/o having sob. pt states onset monday with worsening today. pt states worse with exerction. pt states she went to [facility] and they wanted to admit her for something but she told them that her doctors were here and she would come here. Mode of Arrival: Wheelchair Limitations: No Limitations Source: Patient Time Seen by Provider: 03/29/17 16:33 - History of Present Illness HPI Narrative: This 71-year-old white female followed by Dr. Coronado for chronic atrial fibrillation presents with 3 days of persistent sensation of not being able to get enough breath. She denies chills, fever, nausea, vomiting, heartburn, cough , hemoptysis, chest pain, wheeze, orthopnea, PND, or any purulence. She does have a history of long-standing atrial fibrillation as alluded to but is on no anticoagulants currently. She was evaluated in the ER at [place] 2 days ago and was told her heart was not the problem that she may have clots. Currently she appears in no acute medical distress. Onset (ago): day(s) (Patient presents 3 days post onset of symptoms) Allergies/Adverse Reactions: Allergies Allergy/AdvReac Type Severity Reaction Status Date / Time Sulfa (Sulfonamide Allergy Intermediate RASH Verified 03/29/17 16:16 Antibiotics) Home Medications: Home Medications Medication Instructions Recorded Confirmed Type Celecoxib [Celebrex] 200 mg PO DAILY 10/12/14 03/29/17 History HYDROcodone/ACETAMIN 7.5-325 7.5 tablet PO Q6H PRN 10/12/14 03/29/17 History [[place] 7.5-325] Levothyroxine Tab [Synthroid Tab] 50 mcg PO BEDTIME 10/12/14 03/29/17 History Metformin HCl [Metformin HCl ER] 1,000 mg PO BID 10/12/14 03/29/17 History Multivitamin [Multivitamins] 1 each PO DAILY 10/12/14 03/29/17 History Zafirlukast [Accolate] 20 mg PO BIDAC 10/12/14 03/29/17 History Furosemide Tab [Lasix Tab] 40 mg PO DAILY #30 tablet 11/10/14 03/29/17 Rx Losartan [Cozaar] 50 mg PO DAILY #30 tablet 11/10/14 03/29/17 Rx dimenhyDRINATE [Dimenhydrinate] 1 tablet PO BID 09/12/15 03/29/17 History Aspirin EC Tab 81 mg PO DAILY #90 tablet 09/25/15 03/29/17 Rx Atenolol [Tenormin] 25 mg PO BID tablet 09/25/15 03/29/17 Rx Magnesium Chloride [Slow Mag] 128 mg PO BID tablet 09/25/15 03/29/17 Rx Nitroglycerin Sl Tab [Nitrostat] 0.4 mg SL Q5M PRN #0 tablet 09/25/15 03/29/17 Rx predniSONE TAB [PredniSONE] 5 mg PO DAILY tablet 09/25/15 03/29/17 Rx Diltiazem Cd Cap [Cardizem CD] 120 mg PO BID 03/14/17 03/29/17 History Fenofibrate [Tricor] 140 mg PO DAILY 03/14/17 03/29/17 History Review of System - Review of System 12 point system: reviewed and no additional remarkable complaints except as stated - Review of System Constitutional: Present: as per HPI Respiratory: Present: as per HPI Cardiovascular: Present: as per HPI Gastrointestinal: Present: as per HPI Medical,Surgical,& Family Hx - Medical History Cardio: History of: Cardiac Dysrhythmia (Paroxysmal atrial fibrillation), CHF, CAD, Hypertension, Cardiovascular Problems Neurology: No history of: Seizures Endocrine: History of: Diabetes Mellitus (NIDDM), Thyroid Disorder No history of: Diabetes Mellitus (IDDM) Rheumatology: History of;: Rheumatoid Arthritis Respiratory: History of: Asthma, Obstructive Sleep Apnea (DOES NOT USE MACHINE.) Genitourinary: History of: Kidney Stones Gastrointestinal: History of: Diverticulitis/ Diverticulosis, GERD, Gastrointestinal Bleed, Polyps, GI Problems (DIVERTICULOSIS, COLON POLYPS, RECTAL BLEEDING) Musculoskeletal: History of: Back/Neck Problems, Musculoskeletal Problems ( ARTHRITIS,) Hematology: No history of: Anemia, Blood Transfusion Reaction Other: No history of: Anesthesia Reactions - Surgical History Cardiac Surgeries: Sugical HX of: Cardiac Catheterization (2012, this was done in [place]) Thoracic Surgeries: Surgical HX of;: Lithotripsy HEENT Surgeries: Surgical HX of: Eye Surgery (Bilateral cataract) Patient denies: Thyroid Surgery Abdominal Surgeries: Surgical HX of: Colonoscopy (COLON POLYPS, DIVERTICULOSIS) Reproductive Surgeries: Surgical HX of;: Breast Surgery (Lumpectomy) Patient denies;: Gynecologic Surgery Orthopedic Surgeries: Surgical HX of;: Orthopedic Surgery (OSTEOMYELITIS ON L FOOT), Spinal Surgery (BACK SURGERY) - Family History Family History: Reports;: Family Cancer (BROTHER-- LUNG CANCER), Family Diabetes (Brother), Family Heart Disease (Mother, father, sibling), Family Hypertension (Sister, mother) - Social History Smoking Status: Never smoker Frequency of Alcohol Use: None Type of Drug Use: None Exam Physical Examination: GENERAL: Well developed, well nourished elderly white female in no acute distress. HEENT: Normocephalic. No trauma. Moist mucous membranes. EOMI. PERRLA. ENT NML NECK: Supple. No adenopathy. CARDIAC: Irregular. No murmurs. Heart rate 94 CHEST: Clear to auscultation. No respiratory distress. O2 sat 95 ABDOMEN: Soft. Nontender. Active bowel sounds. EXTREMITIES: No trauma. Normal ROM. No pedal edema. Abrasion early ulcer right ankle medial aspect, left foot wrapped in boot for treatment of osteo- SKIN: No diaphoresis. No rash. Ankles and feet as above. NEURO: Alert. Oriented 3. Motor, sensory, vibratory intact. No focal deficits. Vital Signs: Vital Signs Temperature 98.3 F 03/29/17 16:50 Pulse Rate 88 03/29/17 18:00 Respiratory Rate 20 03/29/17 16:50 Blood Pressure 143/75 03/29/17 18:00 O2 Sat by Pulse Oximetry 98 03/29/17 18:00 Course - Reevaluation(s) Reevaluation #1: Discussed with patient the results of her studies which indicates congestive heart failure. For that reason we will admit for diuresis. - Consultations Consultation #1: Discussed with hospitalist service who will admit for further evaluation treatment. Results - Labs CBC & BMP: 03/29/17 16:41 03/29/17 16:41 Labs: I reviewed the laboratory noted the mild anemia, elevated d-dimer, and elevated BNP. - Impressions EKG: Atrial fibrillation at a rate of 94 with a apparently conducted beats as well as marked left axis deviation. Old anteroseptal ND noted diffuse nonspecific ST changes noted no acute injury pattern noted. - Diagnostic Findings Procedure: Chest x-ray: image reviewed by me, report reviewed by me (CHF with bilateral small effusions), CT: image reviewed by me, report reviewed by me ( CTA negative for pulmonary embolism) Disposition Clinical Impression: Congestive heart failure, Atrial fibrillation Case discussed with: patient, patient's family Disposition: Still a Patient Condition: Guarded Time of Disposition: 18:27
[2017-03-29 17:00] LABS: Basophils # 0.1 10*3/uL (0.0-0.2); Basophils % 0.7 % (0.0-0.8); Eosinophils # 0.2 10*3/uL (0.0-0.87); Eosinophils % 1.8 % (0.00-10.9); Hematocrit 31.2 VOL% (35.7-47.0); Hemoglobin 9.8 GM/DL (12.0-16.0); Immature Granulocytes % 0.4 %; Immature Granulocytes Absolute 0.05 #; Lymphocytes % 8.9 % (21.3-54.2); Mean Corpuscular HGB Conc 31.4 GM/DL (32-36); Mean Corpuscular Hemoglobin 27 PG (27-34); Mean Corpuscular Volume 87.2 FL (87-102); Monocytes # 0.8 10*3/uL (0.11-0.8); Monocytes % 6.6 % (1.7-12.7); Neutrophils # 9.2 10*3/uL (1.4-7.4); Neutrophils % 81.6 % (38.7-73.9); Platelet Count 434 T/CUMM (130-400); Red Blood Count 3.58 MC/CUMM (3.8-5.5); Red Cell Distribution Width 15.5 % (9.3-17.3); White Blood Count 11.3 T/CUMM (4-12)
[2017-03-29 17:13] LABS: INR 1.1; PT Patient Result 11.7 SECS; Partial Thromboplastin Time 25.4 SECS (0-40)
[2017-03-29 17:21] LABS: Alanine Aminotransferase 17 U/L (13-56); Albumin 2.9 G/DL (3.4-5.0); Alkaline Phosphatase 49 U/L (45-117); Aspartate Amino Transferase 13 U/L (0-37); Blood Urea Nitrogen 21 MG/DL (7-18); Calcium 8.6 MG/DL (8.5-10.1); Glucose 123 MG/DL (74-106); Osmolality,Calculated 284.3 MOS/KG (273-304); Potassium 4.8 MMOL/L (3.5-5.1); Sodium 141 MMOL/L (136-145); Total Protein 6.9 G/DL (6.4-8.3); Troponin I Only < 0.015 NG/ML (0.00-0.045)
--- NOTE | 2017-03-29 17:24 | XRay Report ---
XR chest 2V Indication: Shortness of breath. Chest 2 views: Comparison 09/22/2015. Cardiomegaly is stable. There is central pulmonary vascular congestion again shown, not as severe as previous. Tiny bilateral pleural effusions are present with bibasilar atelectasis. No discrete infiltrates. Impression: CHF, mild, less severe than 09/22/2015. Very small bilateral pleural effusions. PROCEDURE INTERPRETED AT [facility] DEPARTMENT OF RADIOLOGY Final Report Signed by: Mahamed Vasques M.D.
[2017-03-29] MEDS ORDERED: SODIUM CHLORIDE 0.9% 500 ML IV STA (17:27)
[2017-03-29 17:28] LABS: ABG Base Excess -2.2 MMOL/L (-2.5-2.5); ABG HCO3 22.6 MMOL/L (20-26); ABG Oxygen Saturation 96.8 % (95-100); ABG PCO2 27.8 MM HG (35-48); ABG PH 7.476 (7.35-7.45); ABG PO2 85.5 MM HG (80-95); ABG TCO2 18.7 MMOL/L (23-27)
--- NOTE | 2017-03-29 17:52 | CT Report ---
Exam: CT angiography chest with intravenous contrast Exam date: 03/29/2017 5: 36 PM Clinical History: 71 years,Female,shortness of breath Technique: Axial computed tomographic angiography images of the chest with intravenous contrast using pulmonary embolism protocol. The CT exam was performed using one or more of the following dose reduction techniques: Automated exposure control, adjustment of the mA and/or kV according to patient size, or use of iterative reconstruction technique. Contrast: 100 mL of Omnipaque 350 administered intravenously Comparison: No relevant comparison studies available Findings: Pulmonary arteries: No vascular intraluminal filling defects to suggest pulmonary embolism Aorta: No dissection or thoracic aortic aneurysm. Lungs: Well aerated. No consolidation. No mass. Pleural spaces: Bilateral pleural effusions, right greater than left Heart: Four-chamber cardiomegaly. Coronary atheromatous plaquing is noted Mediastinum: Few prominent mediastinal lymph nodes, likely reactive Bones/joints: Intact. No acute fracture. No dislocation. Soft tissues: Unremarkable. Lymph nodes: No enlarged lymph nodes Impression: 1. No pulmonary embolism 2. Bilateral pleural effusions, right greater than left 3. Mild reactive mediastinal adenopathy 4. Cardiomegaly PROCEDURE INTERPRETED AT [facility] DEPARTMENT OF RADIOLOGY Final Report Signed by: Luis Angel Armendariz MD
[2017-03-29] MEDS ORDERED: FUROSEMIDE 40 MG/4 ML VIAL IV STA (18:10)
[2017-03-29] MEDS ORDERED: FUROSEMIDE 40 MG/4 ML VIAL ONE (18:22)
[2017-03-29] MEDS ORDERED: GLUCAGON 1 MG VIAL IM PRN ×2 (19:09→19:17)
[2017-03-29] MEDS ORDERED: ONDANSETRON 4 MG/2 ML VIAL IV PRN (19:09)
[2017-03-29] MEDS ORDERED: DEXTROSE 50% 25 GM/50 ML VIAL IV PRN (19:09)
[2017-03-29] MEDS ORDERED: MAGNESIUM SULF RIDER 4 GM in PREMIX 1 EACH IV PRN (19:17)
[2017-03-29] MEDS ORDERED: DEXTROSE 50% 25 GM/50 ML SYRINGE IV PRN (19:17)
[2017-03-29] MEDS ORDERED: MAGNESIUM SULF RIDER 2 GM in PREMIX 1 EACH IV PRN (19:17)
--- NOTE | 2017-03-29 19:33 | Hospitalist History & Physical ---
Assessment and Plan (1) Arterial insufficiency of lower extremity Status: Acute Current Visit: No (2) Chronic renal disease Status: Acute Current Visit: No (3) Congestive heart failure Status: Acute Current Visit: No (4) Coronary artery disease Status: Acute Current Visit: No (5) Diabetic ulcer of both feet associated with diabetes mellitus due to underlying condition Problem details: Diabetic patient with what appears to be chronic osteo of the left calcaneus and new potentially arterial ulcers of the right foot. Status : Acute Current Visit: No (6) Dyspnea Status: Acute Current Visit: No Qualifiers: Dyspnea type: shortness of breath Qualified Code(s): R06.02 - Shortness of breath (7) Hypertension Status: Acute Current Visit: No (8) Paroxysmal atrial fibrillation Status: Chronic Current Visit: No (9) Type II diabetes mellitus Status: Chronic Assessment and plan: Patient will be admitted to our service. She will be placed on telemetry. Will diurese her and consult cardiology. Will continue home meds as appropriate. I am going to consult wound care and Dr. Godoy while patient is in the hospital. She has had chronic wounds for approximately [address] Banerjee treatments. Reevaluate patient in the morning and adjust plans as appropriate. Current Visit: No History of Present Illness Chief complaint: Shortness of breath History of present illness: Ms. Theodore is a 71 year old female with past medical history significant for chronic wound, and paroxysmal A. fib who comes to the hospital complaining of shortness of breath. Patient reports that she was recently hospitalized for GI bleed and discharged on 03/21/2017. She reports that her medications were adjusted during this time. She says it she has never felt good since being discharged. She reports that her shortness of breath is increased. She denies any history of congestive heart failure. Patient was initially seen at [facility] but patient wanted to be seen in our hospital since her doctors were here. She sees Dr. Coronado for her cardiac issues. Patient was found to have an elevated BNP and chest x-ray looks consistent with volume overload. I was consulted for admission. Home Medications Medication Instructions Recorded Confirmed Type Celecoxib [Celebrex] 200 mg PO DAILY 10/12/14 03/29/17 History HYDROcodone/ACETAMIN 7.5-325 7.5 tablet PO Q6H PRN 10/12/14 03/29/17 History [[place] 7.5-325] Levothyroxine Tab [Synthroid Tab] 50 mcg PO BEDTIME 10/12/14 03/29/17 History Metformin HCl [Metformin HCl ER] 1,000 mg PO BID 10/12/14 03/29/17 History Multivitamin [Multivitamins] 1 each PO DAILY 10/12/14 03/29/17 History Zafirlukast [Accolate] 20 mg PO BIDAC 10/12/14 03/29/17 History Furosemide Tab [Lasix Tab] 40 mg PO DAILY #30 tablet 11/10/14 03/29/17 Rx Losartan [Cozaar] 50 mg PO DAILY #30 tablet 11/10/14 03/29/17 Rx dimenhyDRINATE [Dimenhydrinate] 1 tablet PO BID 09/12/15 03/29/17 History Aspirin EC Tab 81 mg PO DAILY #90 tablet 09/25/15 03/29/17 Rx Atenolol [Tenormin] 25 mg PO BID tablet 09/25/15 03/29/17 Rx Magnesium Chloride [Slow Mag] 128 mg PO BID tablet 09/25/15 03/29/17 Rx Nitroglycerin Sl Tab [Nitrostat] 0.4 mg SL Q5M PRN #0 tablet 09/25/15 03/29/17 Rx predniSONE TAB [PredniSONE] 5 mg PO DAILY tablet 09/25/15 03/29/17 Rx Diltiazem Cd Cap [Cardizem CD] 120 mg PO BID 03/14/17 03/29/17 History Fenofibrate [Tricor] 140 mg PO DAILY 03/14/17 03/29/17 History Allergies Allergy/AdvReac Type Severity Reaction Status Date / Time Sulfa (Sulfonamide Allergy Intermediate RASH Verified 03/29/17 16:16 Antibiotics) Medical,Surgical,& Family Hx - Medical History Cardio: History of: Cardiac Dysrhythmia (Paroxysmal atrial fibrillation), CHF, CAD, Hypertension, Cardiovascular Problems Neurology: No history of: Seizures Endocrine: History of: Diabetes Mellitus (NIDDM), Thyroid Disorder No history of: Diabetes Mellitus (IDDM) Rheumatology: History of;: Rheumatoid Arthritis Respiratory: History of: Asthma, Obstructive Sleep Apnea (DOES NOT USE MACHINE.) Genitourinary: History of: Kidney Stones Gastrointestinal: History of: Diverticulitis/ Diverticulosis, GERD, Gastrointestinal Bleed, Polyps, GI Problems (DIVERTICULOSIS, COLON POLYPS, RECTAL BLEEDING) Musculoskeletal: History of: Back/Neck Problems, Musculoskeletal Problems ( ARTHRITIS,) Hematology: No history of: Anemia, Blood Transfusion Reaction Other: No history of: Anesthesia Reactions - Surgical History Cardiac Surgeries: Sugical HX of: Cardiac Catheterization (2012, this was done in [place]) Thoracic Surgeries: Surgical HX of;: Lithotripsy HEENT Surgeries: Surgical HX of: Eye Surgery (Bilateral cataract) Patient denies: Thyroid Surgery Abdominal Surgeries: Surgical HX of: Colonoscopy (COLON POLYPS, DIVERTICULOSIS) Reproductive Surgeries: Surgical HX of;: Breast Surgery (Lumpectomy) Patient denies;: Gynecologic Surgery Orthopedic Surgeries: Surgical HX of;: Orthopedic Surgery (OSTEOMYELITIS ON L FOOT), Spinal Surgery (BACK SURGERY) - Family History Family History: Reports;: Family Cancer (BROTHER-- LUNG CANCER), Family Diabetes (Brother), Family Heart Disease (Mother, father, sibling), Family Hypertension (Sister, mother) - Social History Smoking Status: Never smoker Frequency of Alcohol Use: None Type of Drug Use: None 12 point system: reviewed and no additional remarkable complaints except as stated Exam - Constitutional Vitals: Period Temp Pulse Resp BP Sys/[place] Pulse Ox Last 24 Hr 98.3 F-98.3 F 88-125 16-24 118-143/66-91 95-99 General appearance: normal weight - Head Head exam: Present: normal inspection - Eye Eye exam: Present: EOMI Pupils: Present: CECILIA - ENT ENT exam: Present: normal exam - Neck Neck exam: Present: normal inspection - Respiratory Respiratory exam: Present: rales (Basilar) - Cardiovascular Cardiovascular exam: Present: irregular rhythm - GI/Abdominal GI/Abdominal exam: Present: normal bowel sounds - Extremities Exam Extremities exam: Present: other (Patient has a boot on her left foot) - Back Exam Back exam: Present: normal inspection - Neurological Exam Neurological exam: Present: alert, oriented X3 - Psychiatric Psychiatric exam: Present: normal affect, normal mood - Skin Skin exam: Present: normal color Results - Labs CBC & BMP: 03/29/17 16:41 03/29/17 16:41
[2017-03-29 21:16] LABS: Basophils # 0.1 10*3/uL (0.0-0.2); Basophils % 0.5 % (0.0-0.8); Eosinophils # 0.1 10*3/uL (0.0-0.87); Eosinophils % 1.1 % (0.00-10.9); Hematocrit 30.1 VOL% (35.7-47.0); Hemoglobin 9.5 GM/DL (12.0-16.0); Immature Granulocytes % 0.5 %; Immature Granulocytes Absolute 0.05 #; Lymphocytes # 1.2 10*3/uL (1.4-4.0); Lymphocytes % 12.8 % (21.3-54.2); Mean Corpuscular HGB Conc 31.6 GM/DL (32-36); Mean Corpuscular Hemoglobin 27 PG (27-34); Mean Corpuscular Volume 86.2 FL (87-102); Mean Platelet Volume 9.9 FL (9.6-12.0); Monocytes # 0.5 10*3/uL (0.11-0.8); Monocytes % 5.4 % (1.7-12.7); Neutrophils # 7.7 10*3/uL (1.4-7.4); Neutrophils % 79.7 % (38.7-73.9); Platelet Count 452 T/CUMM (130-400); Red Blood Count 3.49 MC/CUMM (3.8-5.5); Red Cell Distribution Width 15.5 % (9.3-17.3); White Blood Count 9.6 T/CUMM (4-12)
[2017-03-29 21:47] LABS: Bilirubin,Total 0.8 MG/DL (0.2-1.0); Calcium 8.7 MG/DL (8.5-10.1); Potassium 4.3 MMOL/L (3.5-5.1); Total Protein 6.7 G/DL (6.4-8.3)
[2017-03-29] MEDS: MAGNESIUM CHLORIDE 64 MG TABLET PO SCH (22:14)
[2017-03-29] MEDS: LEVOTHYROXINE 50 MCG TABLET PO SCH (22:14)
[2017-03-29] MEDS: DILTIAZEM CD 120 MG CAPSULE PO SCH (22:14)
[2017-03-29] MEDS: ATENOLOL 25 MG TABLET PO SCH (22:14)
[2017-03-29] MEDS: INSULIN REGULAR 100 UNIT/ML SUBCUT SCH (22:15)
[2017-03-29 23:28] LABS: Apearance,Urine CLEAR (Clear); Bilirubin,Urine Negative (Negative); Blood, Urine Small mg/dL (Negative); Glucose,Urine (UA) Negative (Negative); Ketones,Urine Negative (Negative); Nitrite,Urine Negative (Negative); Protein,Urine Negative; RBC,Urine 4 /HPF (0-4); Renal Epithelial Cells,Urine Occasional /HPF (<1); Urine Color Straw (Yellow); Urine Specific Gravity 1.009 (1.001-1.035); Urine Urobilinogen < 2.0 EU/DL (0.2-1.0); WBC,Urine 3 /HPF (0-6)
[2017-03-29 23:30] LABS: Barbiturates Screen,Urine Negative (Negative); Benzodiazepines Screen,Urine Negative (Negative); Cannabinoid Screen,Urine Negative (Negative); Opiate Screen,Urine Positive (Negative); Phencyclidine Screen,Urine Negative (Negative)
[2017-03-29] MEDS ORDERED: ZAFIRLUKAST 20 MG TABLET PO ONE (23:30)
[2017-03-30] MEDS: INSULIN REGULAR 100 UNIT/ML SUBCUT SCH ×4 (09:07→20:44)
[2017-03-30] MEDS: dimenhyDRINATE 50 MG TABLET PO SCH ×3 (09:07→20:42)
[2017-03-30] MEDS: ZAFIRLUKAST 20 MG TABLET PO SCH ×2 (09:07→17:34)
[2017-03-30] MEDS: DILTIAZEM CD 120 MG CAPSULE PO SCH ×2 (09:08→20:45)
[2017-03-30] MEDS: CELECOXIB 200 MG CAPSULE PO SCH (09:09)
[2017-03-30] MEDS: MULTIVITAMIN (CENTRUM) TABLET PO SCH (09:09)
[2017-03-30] MEDS: MAGNESIUM CHLORIDE 64 MG TABLET PO SCH ×2 (09:10→20:42)
[2017-03-30] MEDS: PANTOPRAZOLE 40 MG TABLET PO SCH (09:10)
[2017-03-30] MEDS: predniSONE 5 MG TABLET PO SCH (09:10)
[2017-03-30] MEDS: LOSARTAN 50 MG TABLET PO SCH (09:10)
[2017-03-30] MEDS: FENOFIBRATE 145 MG TABLET PO SCH (09:10)
[2017-03-30] MEDS: ATENOLOL 25 MG TABLET PO SCH ×2 (09:13→20:42)
[2017-03-30] MEDS: ASPIRIN CHEW 81 MG TABLET PO SCH (09:13)
[2017-03-30] MEDS: FUROSEMIDE 40 MG/4 ML VIAL IV SCH ×2 (09:16→17:24)
--- NOTE | 2017-03-30 09:44 | General Surgery Consult Note ---
Assessment and Plan (1) Diabetic ulcer of both feet associated with diabetes mellitus due to underlying condition Problem details: Diabetic patient with what appears to be chronic osteo of the left calcaneus and new potentially arterial ulcers of the right foot. Status : Acute Assessment and plan: Impression: 1. Diabetic ulcer of the left foot heel plantar surface 2. Diabetic ulceration right medial malleolus 3. Admitted for shortness of breath. 4. History of coronary artery disease 5. Diabetes mellitus adult onset Plan: We will continue wound care to the feet in order to continue to get healing going at this time. Current Visit: No History of Present Illness Chief complaint: Bilateral ulcers of the feet History of present illness: Ms. Theodore is a 71 year old female white who has ulcer of the left heel plantar surface and the right medial malleolus they have been treated in the wound healing center for some time with some progressively improvement over time. She was recently in the hospital or with cared for wounds and things have continued to get better at this point time. Part of it was probably because she was off the foot for so long. She was recently in for GI bleed and comes back in now for shortness of breath but her hematocrit remains good and stable. Look at her ulcers and they are better so will maintain some good wound care and attempt to try to get him continued heal up. Home Medications Medication Instructions Recorded Confirmed Type Celecoxib [Celebrex] 200 mg PO DAILY 10/12/14 03/29/17 History HYDROcodone/ACETAMIN 7.5-325 7.5 tablet PO Q6H PRN 10/12/14 03/29/17 History [[facility] 7.5-325] Levothyroxine Tab [Synthroid Tab] 50 mcg PO BEDTIME 10/12/14 03/29/17 History Metformin HCl [Metformin HCl ER] 1,000 mg PO BID 10/12/14 03/29/17 History Multivitamin [Multivitamins] 1 each PO DAILY 10/12/14 03/29/17 History Zafirlukast [Accolate] 20 mg PO BIDAC 10/12/14 03/29/17 History Furosemide Tab [Lasix Tab] 40 mg PO DAILY #30 tablet 11/10/14 03/29/17 Rx Losartan [Cozaar] 50 mg PO DAILY #30 tablet 11/10/14 03/29/17 Rx dimenhyDRINATE [Dimenhydrinate] 1 tablet PO BID 09/12/15 03/29/17 History Aspirin EC Tab 81 mg PO DAILY #90 tablet 09/25/15 03/29/17 Rx Atenolol [Tenormin] 25 mg PO BID tablet 09/25/15 03/29/17 Rx Magnesium Chloride [Slow Mag] 128 mg PO BID tablet 09/25/15 03/29/17 Rx Nitroglycerin Sl Tab [Nitrostat] 0.4 mg SL Q5M PRN #0 tablet 09/25/15 03/29/17 Rx predniSONE TAB [PredniSONE] 5 mg PO DAILY tablet 09/25/15 03/29/17 Rx Diltiazem Cd Cap [Cardizem CD] 120 mg PO BID 03/14/17 03/29/17 History Fenofibrate [Tricor] 140 mg PO DAILY 03/14/17 03/29/17 History Allergies Allergy/AdvReac Type Severity Reaction Status Date / Time Sulfa (Sulfonamide Allergy Intermediate RASH Verified 03/29/17 16:16 Antibiotics) Medical,Surgical,& Family Hx - Medical History Cardio: History of: Cardiac Dysrhythmia (Paroxysmal atrial fibrillation), CHF, CAD, Hypertension, Cardiovascular Problems Neurology: No history of: Seizures Endocrine: History of: Diabetes Mellitus (NIDDM), Thyroid Disorder No history of: Diabetes Mellitus (IDDM) Rheumatology: History of;: Rheumatoid Arthritis Respiratory: History of: Asthma, Obstructive Sleep Apnea (DOES NOT USE MACHINE.) Genitourinary: History of: Kidney Stones Gastrointestinal: History of: Diverticulitis/ Diverticulosis, GERD, Gastrointestinal Bleed, Polyps, GI Problems (DIVERTICULOSIS, COLON POLYPS, RECTAL BLEEDING) Musculoskeletal: History of: Back/Neck Problems, Musculoskeletal Problems ( ARTHRITIS,) Hematology: No history of: Anemia, Blood Transfusion Reaction Other: No history of: Anesthesia Reactions - Surgical History Cardiac Surgeries: Sugical HX of: Cardiac Catheterization (2012, this was done in [place]) Thoracic Surgeries: Surgical HX of;: Lithotripsy HEENT Surgeries: Surgical HX of: Eye Surgery (Bilateral cataract) Patient denies: Thyroid Surgery Abdominal Surgeries: Surgical HX of: Colonoscopy (COLON POLYPS, DIVERTICULOSIS) Reproductive Surgeries: Surgical HX of;: Breast Surgery (Lumpectomy) Patient denies;: Gynecologic Surgery Orthopedic Surgeries: Surgical HX of;: Orthopedic Surgery (OSTEOMYELITIS ON L FOOT), Spinal Surgery (BACK SURGERY) - Family History Family History: Reports;: Family Cancer (BROTHER-- LUNG CANCER), Family Diabetes (Brother), Family Heart Disease (Mother, father, sibling), Family Hypertension (Sister, mother) - Social History Smoking Status: Never smoker Frequency of Alcohol Use: None Type of Drug Use: None 12 point system: reviewed and no additional remarkable complaints except as stated Exam - Constitutional Vitals: Period Temp Pulse Resp BP Sys/[place] Pulse Ox Last 24 Hr 96.8 F-98.3 F 62-125 16-24 105-143/55-91 95-99 General appearance: mild distress - Head Head exam: Present: normal inspection - ENT ENT exam: Present: normal exam - Neck Neck exam: Present: normal inspection - Respiratory Respiratory exam: Present: rales - Cardiovascular Cardiovascular exam: Present: RRR - GI/Abdominal GI/Abdominal exam: Present: hypoactive bowel sounds, soft - Extremities Exam Extremities exam: Present: other (Ulcer of the left heel plantar surface is fairly superficial now and really has a clean flat granulating base. Ulcer on the right medial malleolus is better look smaller at this time and hopefully begin to see this would respond to) - Back Exam Back exam: Present: normal inspection - Neurological Exam Neurological exam: Present: alert, oriented X3, CN II-XII intact - Skin Skin exam: Present: normal color, warm, dry Results - Labs CBC & BMP: 03/29/17 21:07 03/29/17 21:07 Lab Results: I have reviewed the past 24 hour labs
[2017-03-30] MEDS ORDERED: SKIN HEALING OINT (AQUAPHOR) 50 GM TUBE TOP PRN (09:46)
[2017-03-30] MEDS ORDERED: CHLORHEXIDINE 4% SOLN 118 ML BOTTLE TOP ONE (09:46)
--- NOTE | 2017-03-30 10:34 | Cardiology Consult Note ---
<Irina Vega E - Last Filed: 03/30/17 12:16> Assessment and Plan - Time spent with patient Time spent with patient: Greater than 30 minutes (due to assessment, plan, and documentation) (1) Congestive heart failure Status: Acute Assessment and plan: See plan of care listed below. Current Visit: No Qualifiers: Congestive heart failure type: diastolic Congestive heart failure chronicity: acute on chronic Qualified Code(s): I50.33 - Acute on chronic diastolic (congestive) heart failure (2) Dyspnea Status: Acute Assessment and plan: See plan of care listed below. Current Visit: No Qualifiers: Dyspnea type: shortness of breath Qualified Code(s): R06.02 - Shortness of breath (3) Atrial fibrillation Status: Acute Assessment and plan: See plan of care listed below. Current Visit: Yes Qualifiers: Atrial fibrillation type: chronic Qualified Code(s): I48.2 - Chronic atrial fibrillation (4) Chronic renal disease Status: Chronic Assessment and plan: See plan of care listed below. Current Visit: Yes (5) Coronary artery disease Status: Chronic Assessment and plan: See plan of care listed below. Current Visit: No (6) Hypertension Status: Chronic Assessment and plan: See plan of care listed below. Current Visit: No (7) Type II diabetes mellitus Status: Chronic Assessment and plan: See plan of care listed below. Current Visit: No (8) Asthma Status: Chronic Assessment and plan: See plan of care listed below. Current Visit: No (9) Diabetic foot ulcer Status: Chronic Assessment and plan: See plan of care listed below. Current Visit: Yes Qualifiers: Laterality: right History of Present Illness - Data of Consult Patient: known to practice within the last 3 years Consult date: 03/29/17 Requesting Physician: Mahamed Koehler - Consult Narrative Reason for consult: SOB, AFRVR History of present illness: General Machine Operator: Dr. Coronado PCP: Dr. Stephen Hoover ([place]) Ms. Theodore is a 71 y/o WF with a history of chronic atrial fibrillation, CHF, known CAD with un-revascularized mid LAD due to severe calcification and an dilatable vessel, mild aortic stenosis, moderate mitral regurgitation, chronic infection of the left foot, hypertension, type 2 diabetes, obstructive sleep apnea. She is also recently hospitalized due to a GI bleed and was discharged last week. Her diabetic foot ulcer is followed by Dr. Banerjee. Echocardiogram done 11/22/2016 revealed EF 55%, moderate LVH, mild MR, mild TR. Ms. Theodore presented to the emergency room yesterday with complaints of shortness of breath with onset Monday. She reports this is progressively worsened and seems to be worse with exertion. She says that she has felt exhausted over the past several days. She reports that she went to [facility] evaluation and they wanted to admit her to the hospital but she refused since her doctors were here and she subsequently sought treatment at [facility]. Upon arrival, she underwent a chest CT which was negative for PE but did show bilateral pleural effusions, right greater than left, and cardiomegaly. Chest x-ray was consistent with volume overload and her BNP was over 600. Creatinine was 1.7. We were consulted to aid in the management of her shortness of breath and A. fib. Ms. Theodore tells me that she is usually able to tell whenever her heart rate is acting up because she feels short of breath and exhausted. Echocardiogram has been done this morning and will be reviewed. We will continue with rate control for her atrial fibrillation and diurese her. She is currently rate controlled in atrial fibrillation with rates in the 70s-80s. BNP 829 today. H&H is stable at 9.5 and 30.1. Her potassium is 4.3, cardiac biomarkers negative. Will further discuss with Dr. Mota and await additional recommendations. IMPRESSION/PLAN: 1. ACUTE ON CHRONIC DIASTOLIC CHF: We will continue to treat with IV diuretics. Continue aspirin, beta-marya, ARB. 2. SHORTNESS OF BREATH: Patient reports she feels better but she is only -280 mL in her I&Os. We will plan to continue with diuresis for her CHF and rate control for her atrial fibrillation. Continue oxygen as needed. 3. CHRONIC ATRIAL FIBRILLATION: Currently only anticoagulated with aspirin due to recent GI bleed. We will continue rate control with beta blockers and calcium channel blockers. 4. CHRONIC KIDNEY DISEASE: Currently around her baseline with creatinine 1.7 with GFR 37. 5. CORONARY ARTERY DISEASE: She has a history of known CAD with an un- revascularized mid LAD due to severe calcification and and on dilatable vessel. 6. HYPERTENSION: Currently well controlled. Will continue to monitor and adjust accordingly. 7. TYPE 2 DIABETES MELLITUS: She is on accuchecks and sliding scale insulin. Defer further management to attending. 8. HISTORY OF ASTHMA: On chronic steroid therapy with prednisone. 9. DIABETIC FOOT ULCER, RIGHT FOOT: Followed routinely by Dr. Banerjee. CC: Sukhwinder Kulkarni MD - Home Medications and Allergies Home Medications: Home Medications Medication Instructions Recorded Confirmed Type Celecoxib [Celebrex] 200 mg PO DAILY 10/12/14 03/29/17 History HYDROcodone/ACETAMIN 7.5-325 7.5 tablet PO Q6H PRN 10/12/14 03/29/17 History [[place] 7.5-325] Levothyroxine Tab [Synthroid Tab] 50 mcg PO BEDTIME 10/12/14 03/29/17 History Metformin HCl [Metformin HCl ER] 1,000 mg PO BID 10/12/14 03/29/17 History Multivitamin [Multivitamins] 1 each PO DAILY 10/12/14 03/29/17 History Zafirlukast [Accolate] 20 mg PO BIDAC 10/12/14 03/29/17 History Furosemide Tab [Lasix Tab] 40 mg PO DAILY #30 tablet 11/10/14 03/29/17 Rx Losartan [Cozaar] 50 mg PO DAILY #30 tablet 11/10/14 03/29/17 Rx dimenhyDRINATE [Dimenhydrinate] 1 tablet PO BID 09/12/15 03/29/17 History Aspirin EC Tab 81 mg PO DAILY #90 tablet 09/25/15 03/29/17 Rx Atenolol [Tenormin] 25 mg PO BID tablet 09/25/15 03/29/17 Rx Magnesium Chloride [Slow Mag] 128 mg PO BID tablet 09/25/15 03/29/17 Rx Nitroglycerin Sl Tab [Nitrostat] 0.4 mg SL Q5M PRN #0 tablet 09/25/15 03/29/17 Rx predniSONE TAB [PredniSONE] 5 mg PO DAILY tablet 09/25/15 03/29/17 Rx Diltiazem Cd Cap [Cardizem CD] 120 mg PO BID 03/14/17 03/29/17 History Fenofibrate [Tricor] 140 mg PO DAILY 03/14/17 03/29/17 History Allergies/Adverse Reactions: Allergies Allergy/AdvReac Type Severity Reaction Status Date / Time Sulfa (Sulfonamide Allergy Intermediate RASH Verified 03/29/17 16:16 Antibiotics) Review of systems: - Constitutional: Present: fatigue, As per HPI. Absent: anorexia, chills, daytime sleepiness, excessive sweating, fever(s), frequent falls, headache(s), increased appetite, lethargy, malaise, night sweats, stops breathing during sleep, weakness, weight gain, weight loss. - EENT Eyes: Present: As per HPI. Absent: blurry vision, diplopia, loss of vision Ears: Present: As per HPI. Absent: decreased hearing, ear discharge, ear pain Nose, mouth and throat: Present: As per HPI. Absent: dysphagia, epistaxis, headache(s), hoarseness, lip swelling, nasal congestion, neck mass, neck pain, sinus pressure, sore throat, throat swelling, tongue swelling, vertigo - Cardiovascular: Present: dyspnea, dyspnea on exertion, as per HPI. Absent: chest pain at rest, chest pain with activity, edema, claudication, diaphoresis, radiating jaw, neck or arm pain, lightheadedness, orthopnea, palpitations, PND - Respiratory: Present: dyspnea, dyspnea on exertion, as per HPI. Absent: cough , hemoptysis, wheezing, snoring, pain on inspiration - Gastrointestinal: Present: As per HPI. Absent: abdominal pain, bloating, change in bowel habits, constipation, diarrhea, heartburn, hematemesis, hematochezia, loose stools, melena, nausea, vomiting - Genitourinary: Present: As per HPI. Absent: difficulty urinating, dysuria, flank pain, hematuria, nocturia, urinary frequency, urinary incontinence - Musculoskeletal: Present: As per HPI. Absent: arthralgias, back pain, joint swelling, limited range of motion, muscle cramps, muscle weakness, myalgias - Neurological: Present: As per HPI. Absent: abnormal gait, abnormal speech, behavioral changes, confusion, convulsions, disequilibrium, dizziness, focal weakness, frequent falls, headache(s), memory loss, numbness, paresthesias, radicular pain, syncope, tremor(s) - Psychiatric: Present: As per HPI. Absent: anxiety, confusion, depression, panic attacks - Endocrine: Present: fatigue, As per HPI. Absent: cold intolerance, heat intolerance, polydipsia, polyphagia - Hematologic/Lymphatic: Present: As per HPI. Absent: easy bleeding, easy bruising, lymphadenopathy Medical,Surgical,& Family Hx - Medical History Cardio: History of: Cardiac Dysrhythmia (Paroxysmal atrial fibrillation), CHF, CAD, Hypertension, Cardiovascular Problems Neurology: No history of: Seizures Endocrine: History of: Diabetes Mellitus (NIDDM), Thyroid Disorder No history of: Diabetes Mellitus (IDDM) Rheumatology: History of;: Rheumatoid Arthritis Respiratory: History of: Asthma, Obstructive Sleep Apnea (DOES NOT USE MACHINE.) Genitourinary: History of: Kidney Stones Gastrointestinal: History of: Diverticulitis/ Diverticulosis, GERD, Gastrointestinal Bleed, Polyps, GI Problems (DIVERTICULOSIS, COLON POLYPS, RECTAL BLEEDING) Musculoskeletal: History of: Back/Neck Problems, Musculoskeletal Problems ( ARTHRITIS,) Hematology: No history of: Anemia, Blood Transfusion Reaction Other: No history of: Anesthesia Reactions - Surgical History Cardiac Surgeries: Sugical HX of: Cardiac Catheterization (2012, this was done in [place]) Thoracic Surgeries: Surgical HX of;: Lithotripsy HEENT Surgeries: Surgical HX of: Eye Surgery (Bilateral cataract) Patient denies: Thyroid Surgery Abdominal Surgeries: Surgical HX of: Colonoscopy (COLON POLYPS, DIVERTICULOSIS) Reproductive Surgeries: Surgical HX of;: Breast Surgery (Lumpectomy) Patient denies;: Gynecologic Surgery Orthopedic Surgeries: Surgical HX of;: Orthopedic Surgery (OSTEOMYELITIS ON L FOOT), Spinal Surgery (BACK SURGERY) - Family History Family History: Reports;: Family Cancer (BROTHER-- LUNG CANCER), Family Diabetes (Brother), Family Heart Disease (Mother, father, sibling), Family Hypertension (Sister, mother) - Social History Smoking Status: Never smoker Frequency of Alcohol Use: None Type of Drug Use: None Marital Status: Lives With:: Alone Functional capacity: uses cane/walker Physical Examination Vital Signs Temp Pulse Resp BP Pulse Ox 98.3 F 91 H 20 132/73 95 03/29/17 16:12 03/29/17 16:12 03/29/17 16:12 03/29/17 16:12 03/29/17 16:12 Exam: General appearance: Appears well. Pleasant and cooperative. Overweight, no acute distress. Head exam: Present: normal inspection, normocephalic, atraumatic. Absent: hematoma, laceration Eye exam: Present: EOMI. Absent: conjunctival injection, nystagmus, periorbital swelling, scleral icterus, laceration to eyelids, jaundice Pupils: Present: PERRL. Absent: constricted, dilated, fixed, irregular, unequal ENT exam: Present: normal exam, normal external ear exam, mucous membranes moist. Neck exam: Present: normal inspection, midline trachea. Absent: masses, lymphadenopathy, tenderness, thyromegaly, carotid bruit Respiratory exam: Present: Diminished bilateral bases, otherwise clear to auscultation bilaterally. Absent: accessory muscle use, chest wall tenderness, rhonchi, wheezing. Cardiovascular exam: Present: Irregular rate and rhythm. Faint systolic absent : gallop, JVD, rubs GI/Abdominal exam: Present: normal bowel sounds, soft. Absent: distended, firm , hernia, mass, tenderness. Extremities exam: Present: Normal Gait, No Clubbing, No Cyanosis, Upper Extr. Pulses 2+, Lower Extr. Pulses 2+, No edema. Capillary refill less than 3 seconds. Musculoskeletal: Present: No Fluid Collection, No Pain, Normal Range of Motion Back exam: Present: normal inspection. Absent: muscle spasm, vertebral tenderness Neurological exam: Present: awake, alert, oriented X3, Moves all extremities well without hemiparesis or paralysis. Grossly intact without resting or essential tremor Psychiatric exam: Present: normal affect, normal mood Skin exam: Present: normal color, warm, dry, intact. Right foot dressing dry/ intact. Absent: cyanosis, diaphoretic, rash, urticaria Result/EKG - Labs CBC & BMP: 03/29/17 21:07 03/29/17 21:07 Lab Results: I have reviewed the past 24 hour labs Labs: Laboratory Results - last 24 hr 03/29/17 03/29/17 03/29/17 16:41 16:41 16:41 WBC 11.3 RBC 3.58 L Hgb 9.8 L Hct 31.2 L MCV 87.2 MCH 27 MCHC 31.4 L RDW 15.5 Plt Count 434 H MPV 10.0 Neut % (Auto) 81.6 H Lymph % (Auto) 8.9 L [place] % (Auto) 6.6 Eos % (Auto) 1.8 Baso % (Auto) 0.7 Neut # (Auto) 9.2 H Lymph # (Auto) 1.0 L [place] # (Auto) 0.8 Eos # (Auto) 0.2 Baso # (Auto) 0.1 Immature Gran % 0.4 Nucleated RBC % 0.0 Immature Gran # 0.05 Nucleated RBCs # 0.00 Immature Plt Fraction 0.0 INR 1.1 PT Patient/Control Mix 11.7 D-Dimer, Quantitative 1.6 Circ Anticoag PTT 25.4 ABG pH ABG pCO2 ABG pO2 ABG HCO3 ABG Total CO2 ABG O2 Saturation ABG Base Excess Sodium 141 Potassium 4.8 Chloride 107 Carbon Dioxide 26 Anion Gap 12.8 BUN 21 H Creatinine 1.70 H GFR Calculation 37 BUN/Creatinine Ratio 12.00 Glucose 123 H POC Glucose Calculated Osmolality 284.3 Calcium 8.6 Total Bilirubin 0.70 AST 13 ALT 17 Alkaline Phosphatase 49 Total Creatine Kinase 65 CK-MB (CK-2) 1.8 Troponin I < 0.015 B-Natriuretic Peptide Total Protein 6.9 Albumin 2.9 L Globulin 4.0 H Albumin/Globulin Ratio 0.7 L Urine Color Urine Appearance Urine pH Ur Specific [place] Urine Protein Urine Glucose (UA) Urine Ketones Urine Blood Urine Nitrate Urine Bilirubin Urine Urobilinogen Urine Leukocytes Urine RBC Urine WBC Ur Renal Epithelial Cell Ur Culture Indicated? Urine Opiates Screen Ur Barbiturates Screen Ur Phencyclidine Scrn U Amphetamine/Methamph U Benzodiazepines Scrn U Cocaine Metab Screen U Cannabinoids Screen 03/29/17 03/29/17 03/29/17 16:41 17:15 21:07 WBC 9.6 RBC 3.49 L Hgb 9.5 L Hct 30.1 L MCV 86.2 L MCH 27 MCHC 31.6 L RDW 15.5 Plt Count 452 H MPV 9.9 Neut % (Auto) 79.7 H Lymph % (Auto) 12.8 L [place] % (Auto) 5.4 Eos % (Auto) 1.1 Baso % (Auto) 0.5 Neut # (Auto) 7.7 H Lymph # (Auto) 1.2 L [place] # (Auto) 0.5 Eos # (Auto) 0.1 Baso # (Auto) 0.1 Immature Gran % 0.5 Nucleated RBC % 0.0 Immature Gran # 0.05 Nucleated RBCs # 0.00 Immature Plt Fraction 0.0 INR PT Patient/Control Mix D-Dimer, Quantitative Circ Anticoag PTT ABG pH 7.476 H ABG pCO2 27.8 L ABG pO2 85.5 ABG HCO3 22.6 ABG Total CO2 18.7 L ABG O2 Saturation 96.8 ABG Base Excess -2.2 Sodium Potassium Chloride Carbon Dioxide Anion Gap BUN Creatinine GFR Calculation BUN/Creatinine Ratio Glucose POC Glucose Calculated Osmolality Calcium Total Bilirubin AST ALT Alkaline Phosphatase Total Creatine Kinase CK-MB (CK-2) Troponin I B-Natriuretic Peptide 628 H Total Protein Albumin Globulin Albumin/Globulin Ratio Urine Color Urine Appearance Urine pH Ur Specific [place] Urine Protein Urine Glucose (UA) Urine Ketones Urine Blood Urine Nitrate Urine Bilirubin Urine Urobilinogen Urine Leukocytes Urine RBC Urine WBC Ur Renal Epithelial Cell Ur Culture Indicated? Urine Opiates Screen Ur Barbiturates Screen Ur Phencyclidine Scrn U Amphetamine/Methamph U Benzodiazepines Scrn U Cocaine Metab Screen U Cannabinoids Screen 03/29/17 03/29/17 03/29/17 21:07 22:02 23:15 WBC RBC Hgb Hct MCV MCH MCHC RDW Plt Count MPV Neut % (Auto) Lymph % (Auto) [place] % (Auto) Eos % (Auto) Baso % (Auto) Neut # (Auto) Lymph # (Auto) [place] # (Auto) Eos # (Auto) Baso # (Auto) Immature Gran % Nucleated RBC % Immature Gran # Nucleated RBCs # Immature Plt Fraction INR PT Patient/Control Mix D-Dimer, Quantitative Circ Anticoag PTT ABG pH ABG pCO2 ABG pO2 ABG HCO3 ABG Total CO2 ABG O2 Saturation ABG Base Excess Sodium 143 Potassium 4.3 Chloride 106 Carbon Dioxide 27 Anion Gap 14.3 BUN 22 H Creatinine 1.70 H GFR Calculation 37 BUN/Creatinine Ratio 12.00 Glucose 116 H POC Glucose 141 H Calculated Osmolality 288.0 Calcium 8.7 Total Bilirubin 0.80 AST 12 ALT 16 Alkaline Phosphatase 49 Total Creatine Kinase CK-MB (CK-2) Troponin I B-Natriuretic Peptide Total Protein 6.7 Albumin 3.0 L Globulin 3.7 H Albumin/Globulin Ratio 0.8 L Urine Color Straw Urine Appearance Clear Urine pH 6.0 Ur Specific [place] 1.009 Urine Protein Negative Urine Glucose (UA) Negative Urine Ketones Negative Urine Blood Small Urine Nitrate Negative Urine Bilirubin Negative Urine Urobilinogen < 2.0 H Urine Leukocytes Negative Urine RBC 4 Urine WBC 3 Ur Renal Epithelial Cell Occasional Ur Culture Indicated? Not indicated Urine Opiates Screen Ur Barbiturates Screen Ur Phencyclidine Scrn U Amphetamine/Methamph U Benzodiazepines Scrn U Cocaine Metab Screen U Cannabinoids Screen 03/29/17 03/30/17 23:18 07:39 WBC RBC Hgb Hct MCV MCH MCHC RDW Plt Count MPV Neut % (Auto) Lymph % (Auto) [place] % (Auto) Eos % (Auto) Baso % (Auto) Neut # (Auto) Lymph # (Auto) [place] # (Auto) Eos # (Auto) Baso # (Auto) Immature Gran % Nucleated RBC % Immature Gran # Nucleated RBCs # Immature Plt Fraction INR PT Patient/Control Mix D-Dimer, Quantitative Circ Anticoag PTT ABG pH ABG pCO2 ABG pO2 ABG HCO3 ABG Total CO2 ABG O2 Saturation ABG Base Excess Sodium Potassium Chloride Carbon Dioxide Anion Gap BUN Creatinine GFR Calculation BUN/Creatinine Ratio Glucose POC Glucose 119 H Calculated Osmolality Calcium Total Bilirubin AST ALT Alkaline Phosphatase Total Creatine Kinase CK-MB (CK-2) Troponin I B-Natriuretic Peptide Total Protein Albumin Globulin Albumin/Globulin Ratio Urine Color Urine Appearance Urine pH Ur Specific [place] Urine Protein Urine Glucose (UA) Urine Ketones Urine Blood Urine Nitrate Urine Bilirubin Urine Urobilinogen Urine Leukocytes Urine RBC Urine WBC Ur Renal Epithelial Cell Ur Culture Indicated? Urine Opiates Screen Positive H Ur Barbiturates Screen Negative Ur Phencyclidine Scrn Negative U Amphetamine/Methamph Negative U Benzodiazepines Scrn Negative U Cocaine Metab Screen Negative U Cannabinoids Screen Negative - EKG EKG results: interpreted by me EKG shows: atrial fibrillation <Mahamed Mota - Last Filed: 03/30/17 14:48> History of Present Illness - Consult Narrative History of present illness: Patient personally reviewed and examined chart reviewed. Discussed this patient 's case with Irina Vega NP. Agree with the assessment and evaluation plan. Patient was just recently here with a GI bleed. Ms. Theodore is a 71 year old female who was recently here with GI bleed about a week ago. She has chronic atrial fibrillation. After going home from her GI bleed she notes she is having progressive edema. He has swelling her hands and lower extremities. Since being in the hospital with diuresis this is resolved. I reviewed her echocardiogram and this reveals ejection fraction is stable and has no acute pathology or change pathology from prior echocardiogram. With diuresis she is doing much better. She noted her CT of the chest was negative for pulmonary embolus but did have some pleural effusion slight cardiomegaly. Chest x-ray is consistent with her vascular congestion and her BNP was elevated. At this time our plans will be to treat her conservatively with diuretics. I did discuss with her at home if she begins having edema she can take extra Lasix. She does well over the next 24+ hours she should be able to go home since she has not had any acute cardiopulmonary issues. Creatinine is up some but this is been up and down previously. CC: Sukhwinder Kulkarni MD Physical Examination Vital Signs Temp Pulse Resp BP Pulse Ox 98.3 F 91 H 20 132/73 95 03/29/17 16:12 03/29/17 16:12 03/29/17 16:12 03/29/17 16:12 03/29/17 16:12 Result/EKG - Labs CBC & BMP: 03/29/17 21:07 03/29/17 21:07 Labs: Laboratory Results - last 24 hr 03/29/17 03/29/17 03/29/17 16:41 16:41 16:41 WBC 11.3 RBC 3.58 L Hgb 9.8 L Hct 31.2 L MCV 87.2 MCH 27 MCHC 31.4 L RDW 15.5 Plt Count 434 H MPV 10.0 Neut % (Auto) 81.6 H Lymph % (Auto) 8.9 L [place] % (Auto) 6.6 Eos % (Auto) 1.8 Baso % (Auto) 0.7 Neut # (Auto) 9.2 H Lymph # (Auto) 1.0 L [place] # (Auto) 0.8 Eos # (Auto) 0.2 Baso # (Auto) 0.1 Immature Gran % 0.4 Nucleated RBC % 0.0 Immature Gran # 0.05 Nucleated RBCs # 0.00 Immature Plt Fraction 0.0 INR 1.1 PT Patient/Control Mix 11.7 D-Dimer, Quantitative 1.6 Circ Anticoag PTT 25.4 ABG pH ABG pCO2 ABG pO2 ABG HCO3 ABG Total CO2 ABG O2 Saturation ABG Base Excess Sodium 141 Potassium 4.8 Chloride 107 Carbon Dioxide 26 Anion Gap 12.8 BUN 21 H Creatinine 1.70 H GFR Calculation 37 BUN/Creatinine Ratio 12.00 Glucose 123 H POC Glucose Calculated Osmolality 284.3 Calcium 8.6 Total Bilirubin 0.70 AST 13 ALT 17 Alkaline Phosphatase 49 Total Creatine Kinase 65 CK-MB (CK-2) 1.8 Troponin I < 0.015 B-Natriuretic Peptide Total Protein 6.9 Albumin 2.9 L Globulin 4.0 H Albumin/Globulin Ratio 0.7 L Urine Color Urine Appearance Urine pH Ur Specific [place] Urine Protein Urine Glucose (UA) Urine Ketones Urine Blood Urine Nitrate Urine Bilirubin Urine Urobilinogen Urine Leukocytes Urine RBC Urine WBC Ur Renal Epithelial Cell Ur Culture Indicated? Urine Opiates Screen Ur Barbiturates Screen Ur Phencyclidine Scrn U Amphetamine/Methamph U Benzodiazepines Scrn U Cocaine Metab Screen U Cannabinoids Screen 03/29/17 03/29/17 03/29/17 16:41 17:15 21:07 WBC 9.6 RBC 3.49 L Hgb 9.5 L Hct 30.1 L MCV 86.2 L MCH 27 MCHC 31.6 L RDW 15.5 Plt Count 452 H MPV 9.9 Neut % (Auto) 79.7 H Lymph % (Auto) 12.8 L [place] % (Auto) 5.4 Eos % (Auto) 1.1 Baso % (Auto) 0.5 Neut # (Auto) 7.7 H Lymph # (Auto) 1.2 L [place] # (Auto) 0.5 Eos # (Auto) 0.1 Baso # (Auto) 0.1 Immature Gran % 0.5 Nucleated RBC % 0.0 Immature Gran # 0.05 Nucleated RBCs # 0.00 Immature Plt Fraction 0.0 INR PT Patient/Control Mix D-Dimer, Quantitative Circ Anticoag PTT ABG pH 7.476 H ABG pCO2 27.8 L ABG pO2 85.5 ABG HCO3 22.6 ABG Total CO2 18.7 L ABG O2 Saturation 96.8 ABG Base Excess -2.2 Sodium Potassium Chloride Carbon Dioxide Anion Gap BUN Creatinine GFR Calculation BUN/Creatinine Ratio Glucose POC Glucose Calculated Osmolality Calcium Total Bilirubin AST ALT Alkaline Phosphatase Total Creatine Kinase CK-MB (CK-2) Troponin I B-Natriuretic Peptide 628 H Total Protein Albumin Globulin Albumin/Globulin Ratio Urine Color Urine Appearance Urine pH Ur Specific [place] Urine Protein Urine Glucose (UA) Urine Ketones Urine Blood Urine Nitrate Urine Bilirubin Urine Urobilinogen Urine Leukocytes Urine RBC Urine WBC Ur Renal Epithelial Cell Ur Culture Indicated? Urine Opiates Screen Ur Barbiturates Screen Ur Phencyclidine Scrn U Amphetamine/Methamph U Benzodiazepines Scrn U Cocaine Metab Screen U Cannabinoids Screen 03/29/17 03/29/17 03/29/17 21:07 22:02 23:15 WBC RBC Hgb Hct MCV MCH MCHC RDW Plt Count MPV Neut % (Auto) Lymph % (Auto) [place] % (Auto) Eos % (Auto) Baso % (Auto) Neut # (Auto) Lymph # (Auto) [place] # (Auto) Eos # (Auto) Baso # (Auto) Immature Gran % Nucleated RBC % Immature Gran # Nucleated RBCs # Immature Plt Fraction INR PT Patient/Control Mix D-Dimer, Quantitative Circ Anticoag PTT ABG pH ABG pCO2 ABG pO2 ABG HCO3 ABG Total CO2 ABG O2 Saturation ABG Base Excess Sodium 143 Potassium 4.3 Chloride 106 Carbon Dioxide 27 Anion Gap 14.3 BUN 22 H Creatinine 1.70 H GFR Calculation 37 BUN/Creatinine Ratio 12.00 Glucose 116 H POC Glucose 141 H Calculated Osmolality 288.0 Calcium 8.7 Total Bilirubin 0.80 AST 12 ALT 16 Alkaline Phosphatase 49 Total Creatine Kinase CK-MB (CK-2) Troponin I B-Natriuretic Peptide Total Protein 6.7 Albumin 3.0 L Globulin 3.7 H Albumin/Globulin Ratio 0.8 L Urine Color Straw Urine Appearance Clear Urine pH 6.0 Ur Specific [place] 1.009 Urine Protein Negative Urine Glucose (UA) Negative Urine Ketones Negative Urine Blood Small Urine Nitrate Negative Urine Bilirubin Negative Urine Urobilinogen < 2.0 H Urine Leukocytes Negative Urine RBC 4 Urine WBC 3 Ur Renal Epithelial Cell Occasional Ur Culture Indicated? Not indicated Urine Opiates Screen Ur Barbiturates Screen Ur Phencyclidine Scrn U Amphetamine/Methamph U Benzodiazepines Scrn U Cocaine Metab Screen U Cannabinoids Screen 03/29/17 03/30/17 03/30/17 23:18 07:39 11:26 WBC RBC Hgb Hct MCV MCH MCHC RDW Plt Count MPV Neut % (Auto) Lymph % (Auto) [place] % (Auto) Eos % (Auto) Baso % (Auto) Neut # (Auto) Lymph # (Auto) [place] # (Auto) Eos # (Auto) Baso # (Auto) Immature Gran % Nucleated RBC % Immature Gran # Nucleated RBCs # Immature Plt Fraction INR PT Patient/Control Mix D-Dimer, Quantitative Circ Anticoag PTT ABG pH ABG pCO2 ABG pO2 ABG HCO3 ABG Total CO2 ABG O2 Saturation ABG Base Excess Sodium Potassium Chloride Carbon Dioxide Anion Gap BUN Creatinine GFR Calculation BUN/Creatinine Ratio Glucose POC Glucose 119 H Calculated Osmolality Calcium Total Bilirubin AST ALT Alkaline Phosphatase Total Creatine Kinase CK-MB (CK-2) Troponin I B-Natriuretic Peptide 829 H Total Protein Albumin Globulin Albumin/Globulin Ratio Urine Color Urine Appearance Urine pH Ur Specific [place] Urine Protein Urine Glucose (UA) Urine Ketones Urine Blood Urine Nitrate Urine Bilirubin Urine Urobilinogen Urine Leukocytes Urine RBC Urine WBC Ur Renal Epithelial Cell Ur Culture Indicated? Urine Opiates Screen Positive H Ur Barbiturates Screen Negative Ur Phencyclidine Scrn Negative U Amphetamine/Methamph Negative U Benzodiazepines Scrn Negative U Cocaine Metab Screen Negative U Cannabinoids Screen Negative 03/30/17 11:51 WBC RBC Hgb Hct MCV MCH MCHC RDW Plt Count MPV Neut % (Auto) Lymph % (Auto) [place] % (Auto) Eos % (Auto) Baso % (Auto) Neut # (Auto) Lymph # (Auto) [place] # (Auto) Eos # (Auto) Baso # (Auto) Immature Gran % Nucleated RBC % Immature Gran # Nucleated RBCs # Immature Plt Fraction INR PT Patient/Control Mix D-Dimer, Quantitative Circ Anticoag PTT ABG pH ABG pCO2 ABG pO2 ABG HCO3 ABG Total CO2 ABG O2 Saturation ABG Base Excess Sodium Potassium Chloride Carbon Dioxide Anion Gap BUN Creatinine GFR Calculation BUN/Creatinine Ratio Glucose POC Glucose 154 H Calculated Osmolality Calcium Total Bilirubin AST ALT Alkaline Phosphatase Total Creatine Kinase CK-MB (CK-2) Troponin I B-Natriuretic Peptide Total Protein Albumin Globulin Albumin/Globulin Ratio Urine Color Urine Appearance Urine pH Ur Specific [place] Urine Protein Urine Glucose (UA) Urine Ketones Urine Blood Urine Nitrate Urine Bilirubin Urine Urobilinogen Urine Leukocytes Urine RBC Urine WBC Ur Renal Epithelial Cell Ur Culture Indicated? Urine Opiates Screen Ur Barbiturates Screen Ur Phencyclidine Scrn U Amphetamine/Methamph U Benzodiazepines Scrn U Cocaine Metab Screen U Cannabinoids Screen
--- NOTE | 2017-03-30 13:03 | Physician Query Form ---
CLICK EDIT DOCUMENT TO SELECT QUERY ANSWER --> OK --> SIGN Nathalia Jansen RN Clinical [employer] Super[employer] W) [phone] (f) [phone] [email or web address] PROVIDERS: Make your selection(s) from the choices in EACH section by typing an "x" and enter comments in the comment section. Please use your independent medical judgment in providing your response. This request does not imply that any particular answer is desired or expected. CLINICAL INDICATORS: (Providers should not edit this section) Based on documentation of "chronic renal disease", creatinine of 1.70 and GFR of 37. Please stage the CKD. Clarify which of the following most accurately represents the patient's renal status: Chronic Kidney Disease Stages Source: National Kidney Disease Foundation ( ) Stage I (eGFR > or = 90) ( ) Stage II (eGFR 60 - 89) ( x) Stage III (eGFR 30 - 59) ( ) Stage IV (eGFR 15 - 29) ( ) Stage V (eGFR < 15 or dialysis) COMMENTS: PLEASE ALSO DOCUMENT RESPONSE IN PROGRESS NOTES AND/OR DISCHARGE SUMMARY Use of terms such as suspected, likely, or probable (associated with a specific diagnosis that is being evaluated, monitored, or treated as if it exists) are acceptable and can be restated in the discharge summary if not ruled out. MTDD
--- NOTE | 2017-03-30 13:04 | Order Completion Report ---
See report scanned to EMR
--- NOTE | 2017-03-30 16:19 | Hospitalist Progress Note ---
Hospitalist: Subjective Interval history: Patient admitted with shortness of breath, reports that her breathing is better than yesterday. Exam - Constitutional Vitals: Period Temp Pulse Resp BP Sys/[place] Pulse Ox Last 24 Hr 96.8 F-98.3 F 62-125 16-24 105-143/55-91 95-99 Exam: General: No Acute Distress HEENT: Normocephalic, atraumatic, Extra ocular movements intact Neck: Supple, No JVD Chest: Clear to auscultation B/L CV: S1 + S2 audible without murmur, gallop or rub Abd: soft, NT, Non-distended, BS + Ext: No edema Skin: No purpura, bruising or rash Rheumatologic: No Joint deformities Neurologic: Strength 5/5 all extremities, no gross sensory deficits Results - Labs CBC & BMP: 03/29/17 21:07 03/29/17 21:07 - Impressions Assessment and Plan: Acute on chronic diastolic congestive heart failure Status: Acute Assessment and plan: Ejection fraction 55% on echo, she also has valvular heart disease with moderate mitral regurgitation attributing to her symptoms. Continue IV Lasix and monitor intake and output Current Visit: Yes Permanent atrial fibrillation Status: Acute Assessment and plan: She is on aspirin as anticoagulant due to recent GI bleed. Heart rate controlled on atenolol and Cardizem CD Current Visit: Yes Coronary artery disease Status: Chronic Assessment and plan: Continue medical management Current Visit: No Chronic kidney disease-III Status: Chronic Assessment and plan: Creatinine stable around 1.7 Current Visit: Yes Diabetic heel ulcers Status: Chronic Assessment and plan: Continue wound care Current Visit: Yes Asthma Status: Chronic Assessment and plan: Stable on chronic steroid therapy with prednisone 5 mg and Zafirlukast Current Visit: No Essential hypertension Status: Chronic Assessment and plan: Controlled colds and atenolol and Cardizem CD, continue Current Visit: No Diabetes mellitus II Status: Chronic Assessment and plan: Controlled, continue sliding-scale insulin coverage Current Visit: No Hypothyroidism Status: Chronic Assessment and plan: Stable, continue Synthroid Current Visit: No Obesity/BANDAR Status: Chronic Assessment and plan: Needs to lose weight to ideal body weight Current Visit: No
[2017-03-30] MEDS: GENTAMICIN 0.1% OINT 15 GM TUBE TOP SCH ×2 (17:22→20:45)
[2017-03-30] MEDS: LEVOTHYROXINE 50 MCG TABLET PO SCH (20:42)
[2017-03-31 05:02] LABS: Basophils # 0.1 10*3/uL (0.0-0.2); Basophils % 0.9 % (0.0-0.8); Eosinophils # 0.8 10*3/uL (0.0-0.87); Eosinophils % 9.6 % (0.00-10.9); Hematocrit 29.2 VOL% (35.7-47.0); Immature Granulocytes % 0.6 %; Immature Granulocytes Absolute 0.05 #; Lymphocytes # 2.2 10*3/uL (1.4-4.0); Lymphocytes % 27.3 % (21.3-54.2); Mean Corpuscular HGB Conc 30.8 GM/DL (32-36); Mean Corpuscular Hemoglobin 27 PG (27-34); Mean Corpuscular Volume 87.4 FL (87-102); Monocytes # 0.5 10*3/uL (0.11-0.8); Monocytes % 6.3 % (1.7-12.7); Neutrophils # 4.5 10*3/uL (1.4-7.4); Neutrophils % 55.3 % (38.7-73.9); Platelet Count 423 T/CUMM (130-400); Red Blood Count 3.34 MC/CUMM (3.8-5.5); Red Cell Distribution Width 15.3 % (9.3-17.3); White Blood Count 8.1 T/CUMM (4-12)
[2017-03-31 05:38] LABS: Calcium 8.7 MG/DL (8.5-10.1); Magnesium 1.9 MG/DL (1.8-2.4); Osmolality,Calculated 286.4 MOS/KG (273-304); Potassium 4.2 MMOL/L (3.5-5.1)
[2017-03-31 05:43] LABS: Risk Ratio 3.34; VLDL CHOLESTEROL 30.2 MG/DL
[2017-03-31] MEDS: FUROSEMIDE 40 MG/4 ML VIAL IV SCH ×2 (08:55→15:51)
[2017-03-31] MEDS: ZAFIRLUKAST 20 MG TABLET PO SCH ×2 (08:55→15:51)
[2017-03-31] MEDS: FENOFIBRATE 145 MG TABLET PO SCH (08:56)
[2017-03-31] MEDS: MAGNESIUM CHLORIDE 64 MG TABLET PO SCH ×2 (08:56→20:38)
[2017-03-31] MEDS: DILTIAZEM CD 120 MG CAPSULE PO SCH ×2 (08:56→20:38)
[2017-03-31] MEDS: CELECOXIB 200 MG CAPSULE PO SCH (08:56)
[2017-03-31] MEDS: ATENOLOL 25 MG TABLET PO SCH ×2 (08:57→20:38)
[2017-03-31] MEDS: ASPIRIN CHEW 81 MG TABLET PO SCH (08:57)
[2017-03-31] MEDS: MULTIVITAMIN (CENTRUM) TABLET PO SCH (08:57)
[2017-03-31] MEDS: PANTOPRAZOLE 40 MG TABLET PO SCH (08:57)
[2017-03-31] MEDS: LOSARTAN 50 MG TABLET PO SCH (08:57)
[2017-03-31] MEDS: INSULIN REGULAR 100 UNIT/ML SUBCUT SCH ×4 (08:58→20:40)
[2017-03-31] MEDS: predniSONE 5 MG TABLET PO SCH (12:08)
[2017-03-31] MEDS: dimenhyDRINATE 50 MG TABLET PO SCH ×2 (12:08→20:38)
[2017-03-31] MEDS: GENTAMICIN 0.1% OINT 15 GM TUBE TOP SCH ×3 (12:08→20:40)
--- NOTE | 2017-03-31 12:15 | General Surgery Progress Note ---
Assessment and Plan - Time spent with patient Time spent with patient: Less than 30 minutes (1) Diabetic ulcer of both feet associated with diabetes mellitus due to underlying condition Problem details: Diabetic patient with what appears to be chronic osteo of the left calcaneus and new potentially arterial ulcers of the right foot. Status : Acute Assessment and plan: Impression: 1. Diabetic ulcer of the left foot heel plantar surface 2. Diabetic ulceration right medial malleolus 3. Admitted for shortness of breath. 4. History of coronary artery disease 5. Diabetes mellitus adult onset Plan: We will continue wound care to the feet in order to continue to get healing going at this time. 03/31/2017. Patient generally is doing better. Wound care is proceeding on the feet and I will look at those again on Monday. Current Visit: No Subjective Patient reports: Present: feels better, afebrile Exam - Constitutional Vitals: Period Temp Pulse Resp BP Sys/[place] Pulse Ox Last 24 Hr 96.6 F-98.5 F 67-85 16-20 103-137/40-69 95-98 General appearance: mild distress - Head Head exam: Present: normal inspection - ENT ENT exam: Present: normal exam - Neck Neck exam: Present: normal inspection - Respiratory Respiratory exam: Present: rales - Cardiovascular Cardiovascular exam: Present: RRR - GI/Abdominal GI/Abdominal exam: Present: hypoactive bowel sounds, soft - Extremities Exam Extremities exam: Present: other (Ulcers of the feet are stable and clean and care is proceeding) - Back Exam Back exam: Present: normal inspection - Neurological Exam Neurological exam: Present: alert, oriented X3, CN II-XII intact - Skin Skin exam: Present: normal color, warm, dry Results - Labs CBC & BMP: 03/31/17 04:36 03/31/17 04:36 Lab Results: I have reviewed the past 24 hour labs
--- NOTE | 2017-03-31 14:43 | Hospitalist Progress Note ---
Hospitalist: Subjective Interval history: atient admitted with shortness of breath, reports that breathing continues to improve. Exam - Constitutional Vitals: Period Temp Pulse Resp BP Sys/[place] Pulse Ox Last 24 Hr 96.6 F-98.5 F 67-85 16-20 103-137/40-69 95-98 Exam: General: No Acute Distress HEENT: Normocephalic, atraumatic, Extra ocular movements intact Neck: Supple, No JVD Chest: Clear to auscultation B/L CV: S1 + S2 audible without murmur, gallop or rub Abd: soft, NT, Non-distended, BS + Ext: No edema Skin: No purpura, bruising or rash Rheumatologic: No Joint deformities Neurologic: Strength 5/5 all extremities, no gross sensory deficits Results - Labs CBC & BMP: 03/31/17 04:36 03/31/17 04:36 - Impressions Assessment and Plan: Acute on chronic diastolic congestive heart failure Status: Acute Assessment and plan: Ejection fraction 55% on echo, she also has valvular heart disease with moderate mitral regurgitation contributing to her symptoms. Continue IV Lasix and monitor intake and output, and Cr Current Visit: Yes Permanent atrial fibrillation Status: Acute Assessment and plan: She is on aspirin as anticoagulant due to recent GI bleed. Heart rate controlled on atenolol and Cardizem CD Current Visit: Yes Coronary artery disease Status: Chronic Assessment and plan: Continue medical management Current Visit: No Chronic kidney disease-III Status: Chronic Assessment and plan: Creatinine stable around 1.7 Current Visit: Yes Diabetic heel ulcers Status: Chronic Assessment and plan: Continue wound care Current Visit: Yes Asthma Status: Chronic Assessment and plan: Stable on chronic steroid therapy with prednisone 5 mg and Zafirlukast Current Visit: No Essential hypertension Status: Chronic Assessment and plan: Controlled colds and atenolol and Cardizem CD, continue Current Visit: No Diabetes mellitus II Status: Chronic Assessment and plan: Controlled, continue sliding-scale insulin coverage Current Visit: No Hypothyroidism Status: Chronic Assessment and plan: Stable, continue Synthroid Current Visit: No Obesity/BANDAR Status: Chronic Assessment and plan: Needs to lose weight to ideal body weight Current Visit: No
--- NOTE | 2017-03-31 14:55 | Cardiology Progress Note ---
Assessment and Plan - Time spent with patient Time spent with patient: Greater than 30 minutes (1) Coronary artery disease Status: Chronic Assessment and plan: She is not having any overt anginal symptomatology. Current Visit: No Qualifiers: Coronary Disease-Associated Artery/Lesion type: [place] artery [place] vs. transplanted heart: [place] heart Associated angina: without angina Qualified Code(s): I25.10 - Atherosclerotic heart disease of [place] coronary artery without angina pectoris (2) Congestive heart failure Status: Acute Assessment and plan: This is stable. She did have elevated BNP and had slight evidence for exacerbation of heart failure. Current Visit: No Qualifiers: Congestive heart failure type: diastolic Congestive heart failure chronicity: acute on chronic Qualified Code(s): I50.33 - Acute on chronic diastolic (congestive) heart failure (3) Dyspnea Status: Chronic Assessment and plan: This is somewhat chronic with exacerbation with the present illness. Current Visit: No (4) Atrial fibrillation Status: Chronic Assessment and plan: This is a chronic issue her ventricular spots is managed well. Current Visit: Yes Qualifiers: Atrial fibrillation type: chronic Qualified Code(s): I48.2 - Chronic atrial fibrillation (5) Coronary artery disease Status: Chronic Assessment and plan: Clinically stable. Continue to monitor. Current Visit: No (6) Chronic renal disease Status: Chronic Assessment and plan: General this is stable. Current Visit: Yes (7) Type II diabetes mellitus Status: Chronic Assessment and plan: Followed by the primary care service. Current Visit: No (8) Hypertension Status: Chronic Assessment and plan: This is stable continue to manage his see below. Current Visit: No (9) Diabetic foot ulcer Status: Chronic Assessment and plan: Follow Dr. Banerjee is seen as this admission. Current Visit: Yes Qualifiers: Laterality: right (10) Obesity Status: Chronic Assessment and plan: She certainly would benefit from weight loss. Current Visit: Yes Cardiology - PN: Subj Interval history: Patient is admitted with shortness of breath and edema. She is done well with diuresis. She states her edema has resolved and she is sleeping well. I am not real sure how much edema she had to begin with. Her dyspnea though is much improved. She has chronic atrial fibrillation has had no palpitations with this. Her echocardiogram evaluation is been stable. Discussed with the patient that she may benefit from using as needed extra dose of Lasix. I think that we can probably switch her back to p.o. Lasix from her IV and see how she does. She can probably go home tomorrow or Monday. Dr. Banerjee utilizing the patient for her chronic wound issue. IMPRESSION/PLAN: 1. ACUTE ON CHRONIC DIASTOLIC CHF: Try switching to oral Lasix. Discussed as needed extra Lasix at home. Continue aspirin, beta-marya, ARB. 2. SHORTNESS OF BREATH: Patient reports she feels better but she is only -280 mL in her I&Os. We will plan to continue with diuresis for her CHF and rate control for her atrial fibrillation. Continue oxygen as needed. 3. CHRONIC ATRIAL FIBRILLATION: Currently only anticoagulated with aspirin due to recent GI bleed. We will continue rate control with beta blockers and calcium channel blockers. Her rates are doing well. 4. CHRONIC KIDNEY DISEASE: Currently around her baseline with creatinine 1.7 with GFR 37. 5. CORONARY ARTERY DISEASE: She has a history of known CAD with an un- revascularized mid LAD due to severe calcification and and on dilatable vessel. This remains clinically stable. 6. HYPERTENSION: Currently well controlled. Will continue to monitor and adjust accordingly. 7. TYPE 2 DIABETES MELLITUS: She is on accuchecks and sliding scale insulin. Defer further management to attending. 8. HISTORY OF ASTHMA: On chronic steroid therapy with prednisone. 9. DIABETIC FOOT ULCER, RIGHT FOOT: Followed routinely by Dr. Banerjee who is seen in this admission. Exam (Progress Note) - Constitutional Vitals: Period Temp Pulse Resp BP Sys/[place] Pulse Ox Last 24 Hr 96.6 F-98.5 F 67-85 16-20 103-137/40-69 95-98 Exam: General appearance: Obese female sitting the chair in no distress. Head exam: Present: normal inspection, normocephalic, atraumatic. Eye exam: Present: EOMI. Pupils: Present: PERRL. ENT exam: Present: normal exam, normal external ear exam, mucous membranes moist. Neck exam: Present: normal inspection, midline trachea. Absent: masses, lymphadenopathy, tenderness, thyromegaly, carotid bruit Respiratory exam: Present: Diminished bilateral bases, otherwise clear to auscultation bilaterally. Absent: rhonchi, wheezing. Cardiovascular exam: Present: Irregular rate and rhythm. Faint systolic absent : gallop, JVD, rubs GI/Abdominal exam: Present: normal bowel sounds, soft. Extremities exam: Present: Normal Gait, No Clubbing, No Cyanosis, Upper Extr. Pulses 2+, Lower Extr. Pulses 2+, No edema of hands or feet. Capillary refill less than 3 seconds. Musculoskeletal: Present: No Fluid Collection, No Pain, Normal Range of Motion Back exam: Present: normal inspection. Absent: muscle spasm, vertebral tenderness Neurological exam: Present: awake, alert, oriented X3, Moves all extremities well without hemiparesis or paralysis. Grossly intact without resting or essential tremor Psychiatric exam: Present: normal affect, normal mood Skin exam: Present: normal color, warm, dry, intact. Right foot dressing dry/ intact. Absent: cyanosis, diaphoretic, rash, urticaria Result/EKG - Labs CBC & BMP: 03/31/17 04:36 03/31/17 04:36 Lab Results: I have reviewed the past 24 hour labs Labs: Laboratory Results - last 24 hr 03/30/17 03/30/17 03/31/17 17:43 20:40 04:36 WBC 8.1 RBC 3.34 L Hgb 9.0 L Hct 29.2 L MCV 87.4 MCH 27 MCHC 30.8 L RDW 15.3 Plt Count 423 H MPV 10.0 Neut % (Auto) 55.3 Lymph % (Auto) 27.3 [place] % (Auto) 6.3 Eos % (Auto) 9.6 Baso % (Auto) 0.9 H Neut # (Auto) 4.5 Lymph # (Auto) 2.2 [place] # (Auto) 0.5 Eos # (Auto) 0.8 Baso # (Auto) 0.1 Immature Gran % 0.6 Nucleated RBC % 0.0 Immature Gran # 0.05 Nucleated RBCs # 0.00 Immature Plt Fraction 0.0 Sodium Potassium Chloride Carbon Dioxide Anion Gap BUN Creatinine GFR Calculation BUN/Creatinine Ratio Glucose POC Glucose 136 H 160 H Calculated Osmolality Calcium Magnesium Triglycerides Cholesterol LDL Cholesterol VLDL Cholesterol HDL Cholesterol Heart Disease Risk Ratio 03/31/17 03/31/17 03/31/17 04:36 04:36 07:29 WBC RBC Hgb Hct MCV MCH MCHC RDW Plt Count MPV Neut % (Auto) Lymph % (Auto) [place] % (Auto) Eos % (Auto) Baso % (Auto) Neut # (Auto) Lymph # (Auto) [place] # (Auto) Eos # (Auto) Baso # (Auto) Immature Gran % Nucleated RBC % Immature Gran # Nucleated RBCs # Immature Plt Fraction Sodium 140 Potassium 4.2 Chloride 104 Carbon Dioxide 29 Anion Gap 11.2 BUN 28 H Creatinine 1.80 H GFR Calculation 35 BUN/Creatinine Ratio 15.00 Glucose 130 H POC Glucose 124 H Calculated Osmolality 286.4 Calcium 8.7 Magnesium 1.9 Triglycerides 151 H Cholesterol 127 LDL Cholesterol 79.0 VLDL Cholesterol 30.2 HDL Cholesterol 38 L Heart Disease Risk Ratio 3.34 03/31/17 11:39 WBC RBC Hgb Hct MCV MCH MCHC RDW Plt Count MPV Neut % (Auto) Lymph % (Auto) [place] % (Auto) Eos % (Auto) Baso % (Auto) Neut # (Auto) Lymph # (Auto) [place] # (Auto) Eos # (Auto) Baso # (Auto) Immature Gran % Nucleated RBC % Immature Gran # Nucleated RBCs # Immature Plt Fraction Sodium Potassium Chloride Carbon Dioxide Anion Gap BUN Creatinine GFR Calculation BUN/Creatinine Ratio Glucose POC Glucose 155 H Calculated Osmolality Calcium Magnesium Triglycerides Cholesterol LDL Cholesterol VLDL Cholesterol HDL Cholesterol Heart Disease Risk Ratio - Impressions Impressions: Telemetry with atrial for ablation is chronic with controlled ventricular response.
[2017-03-31] MEDS: LEVOTHYROXINE 50 MCG TABLET PO SCH (20:38)
[2017-04-01 05:14] LABS: Basophils # 0.1 10*3/uL (0.0-0.2); Basophils % 1.2 % (0.0-0.8); Eosinophils # 0.8 10*3/uL (0.0-0.87); Eosinophils % 7.3 % (0.00-10.9); Hematocrit 34.7 VOL% (35.7-47.0); Hemoglobin 10.5 GM/DL (12.0-16.0); Immature Granulocytes % 0.9 %; Immature Granulocytes Absolute 0.09 #; Lymphocytes # 3.2 10*3/uL (1.4-4.0); Lymphocytes % 30.2 % (21.3-54.2); Mean Corpuscular HGB Conc 30.3 GM/DL (32-36); Mean Corpuscular Hemoglobin 27 PG (27-34); Mean Corpuscular Volume 89.4 FL (87-102); Mean Platelet Volume 12.3 FL (9.6-12.0); Monocytes # 0.5 10*3/uL (0.11-0.8); Monocytes % 4.9 % (1.7-12.7); Neutrophils # 5.8 10*3/uL (1.4-7.4); Neutrophils % 55.5 % (38.7-73.9); Platelet Count 339 T/CUMM (130-400); Red Blood Count 3.88 MC/CUMM (3.8-5.5); Red Cell Distribution Width 15.3 % (9.3-17.3); White Blood Count 10.4 T/CUMM (4-12)
[2017-04-01 05:51] LABS: Calcium 9.1 MG/DL (8.5-10.1); Magnesium 1.8 MG/DL (1.8-2.4); Osmolality,Calculated 282.7 MOS/KG (273-304); Potassium 4.4 MMOL/L (3.5-5.1)
--- NOTE | 2017-04-01 07:47 | Cardiology Progress Note ---
Assessment and Plan (1) Coronary artery disease Status: Chronic Assessment and plan: She is not having any overt anginal symptomatology. This is stable. Current Visit: No Qualifiers: Coronary Disease-Associated Artery/Lesion type: [place] artery [place] vs. transplanted heart: [place] heart Associated angina: without angina Qualified Code(s): I25.10 - Atherosclerotic heart disease of [place] coronary artery without angina pectoris (2) Congestive heart failure Status: Acute Assessment and plan: This is stable. Current Visit: No Qualifiers: Congestive heart failure type: diastolic Congestive heart failure chronicity: acute on chronic Qualified Code(s): I50.33 - Acute on chronic diastolic (congestive) heart failure (3) Dyspnea Status: Chronic Assessment and plan: There is a chronic element of this but this is stable now. She may have some mild volume overload. Current Visit: No (4) Atrial fibrillation Status: Chronic Assessment and plan: This is a chronic issue her with her ventricular rates well-managed. Current Visit: Yes Qualifiers: Atrial fibrillation type: chronic Qualified Code(s): I48.2 - Chronic atrial fibrillation (5) Chronic renal disease Status: Chronic Assessment and plan: stable lab today. Current Visit: Yes (6) Type II diabetes mellitus Status: Chronic Assessment and plan: Followed by the primary care service. Current Visit: No (7) Hypertension Status: Chronic Assessment and plan: Stable at present continue present medications. Current Visit: No (8) Diabetic foot ulcer Status: Chronic Assessment and plan: Follow Dr. Banerjee is seen as this admission. Current Visit: Yes Qualifiers: Laterality: right (9) Obesity Status: Chronic Assessment and plan: She certainly would benefit from weight loss. Current Visit: Yes Cardiology - PN: Subj Interval history: The patient is doing well this morning and had a good night. Last 24-36 hours she is happily no shortness of breath has been up with a walker. She states she had no shortness of breath during the night. She has had no palpitations or other issues. She has chronic atrial fibrillation and her margins which reveals this an occasional PVC. She has had no vital sign abnormalities. Patient's CBC today is unremarkable and stable in fact her H&H is better. Her chemistries are unremarkable. BUN and creatinine are stable. BUN is up just a little bit. As noted she can go home and follow with Dr. Coronado about 2 weeks. I recommended that she take her routine Lasix dose and just take an extra Lasix when she is short of breath or having some edema. Otherwise I would not change her medications. Exam (Progress Note) - Constitutional Vitals: Period Temp Pulse Resp BP Sys/[place] Pulse Ox Last 24 Hr 97.0 F-98.2 F 60-84 16-20 103-133/40-70 92-96 Exam: General appearance: Obese female sitting the chair in no distress. HEENT: Atraumatic. EOMs are normal. Artery acuity is grossly intact conversation. Neck exam: Present: normal inspection, midline trachea. Respiratory exam: Lung richey are clear posterior and anterior without rales or wheezes. Cardiovascular exam: Irregular rate and rhythm. 1/6 systolic along left sternal border. GI/Abdominal exam: Present: normal bowel sounds, soft. Extremities exam: No edema. Musculoskeletal: No deformities. Has foot ulcer and this is wrapped. Back exam: Present: normal inspection. Absent: muscle spasm, vertebral tenderness Neurological exam: Awake and alert and grossly intact. Psychiatric exam: Present: normal affect, normal mood Skin exam: Right foot dressings intact otherwise dermatologic is stable. Result/EKG - Labs CBC & BMP: 04/01/17 04:26 04/01/17 04:26 Lab Results: I have reviewed the past 24 hour labs Labs: Laboratory Results - last 24 hr 03/31/17 03/31/17 03/31/17 07:29 11:39 16:12 WBC RBC Hgb Hct MCV MCH MCHC RDW Plt Count MPV Neut % (Auto) Lymph % (Auto) [place] % (Auto) Eos % (Auto) Baso % (Auto) Neut # (Auto) Lymph # (Auto) [place] # (Auto) Eos # (Auto) Baso # (Auto) Immature Gran % Nucleated RBC % Immature Gran # Nucleated RBCs # Sodium Potassium Chloride Carbon Dioxide Anion Gap BUN Creatinine GFR Calculation BUN/Creatinine Ratio Glucose POC Glucose 124 H 155 H 186 H Calculated Osmolality Calcium Magnesium 03/31/17 04/01/17 04/01/17 20:12 04:26 04:26 WBC 10.4 RBC 3.88 Hgb 10.5 L Hct 34.7 L MCV 89.4 MCH 27 MCHC 30.3 L RDW 15.3 Plt Count 339 MPV 12.3 H Neut % (Auto) 55.5 Lymph % (Auto) 30.2 [place] % (Auto) 4.9 Eos % (Auto) 7.3 Baso % (Auto) 1.2 H Neut # (Auto) 5.8 Lymph # (Auto) 3.2 [place] # (Auto) 0.5 Eos # (Auto) 0.8 Baso # (Auto) 0.1 Immature Gran % 0.9 Nucleated RBC % 0.0 Immature Gran # 0.09 Nucleated RBCs # 0.00 Sodium 138 Potassium 4.4 Chloride 103 Carbon Dioxide 25 Anion Gap 14.4 BUN 32 H Creatinine 1.80 H GFR Calculation 35 BUN/Creatinine Ratio 17.00 Glucose 118 H POC Glucose 171 H Calculated Osmolality 282.7 Calcium 9.1 Magnesium 1.8 04/01/17 07:12 WBC RBC Hgb Hct MCV MCH MCHC RDW Plt Count MPV Neut % (Auto) Lymph % (Auto) [place] % (Auto) Eos % (Auto) Baso % (Auto) Neut # (Auto) Lymph # (Auto) [place] # (Auto) Eos # (Auto) Baso # (Auto) Immature Gran % Nucleated RBC % Immature Gran # Nucleated RBCs # Sodium Potassium Chloride Carbon Dioxide Anion Gap BUN Creatinine GFR Calculation BUN/Creatinine Ratio Glucose POC Glucose 130 H Calculated Osmolality Calcium Magnesium - Impressions Impressions: Telemetry with atrial fibrillation controlled ventricular response and rare PVC. Specialty Discharge - Follow Up or Referrals Follow up with: Leighton Coronado MD [Physician] - 2 Weeks (2 week follow-up with Dr. Leighton coronado.)
[2017-04-01] MEDS: PANTOPRAZOLE 40 MG TABLET PO SCH (08:55)
[2017-04-01] MEDS: MAGNESIUM CHLORIDE 64 MG TABLET PO SCH (08:55)
[2017-04-01] MEDS: MULTIVITAMIN (CENTRUM) TABLET PO SCH (08:55)
[2017-04-01] MEDS: LOSARTAN 50 MG TABLET PO SCH (08:55)
[2017-04-01] MEDS: CELECOXIB 200 MG CAPSULE PO SCH (08:56)
[2017-04-01] MEDS: FENOFIBRATE 145 MG TABLET PO SCH (08:56)
[2017-04-01] MEDS: ZAFIRLUKAST 20 MG TABLET PO SCH (08:56)
[2017-04-01] MEDS: DILTIAZEM CD 120 MG CAPSULE PO SCH (08:57)
[2017-04-01] MEDS: ATENOLOL 25 MG TABLET PO SCH (08:57)
[2017-04-01] MEDS: ASPIRIN CHEW 81 MG TABLET PO SCH (08:57)
[2017-04-01] MEDS: dimenhyDRINATE 50 MG TABLET PO SCH (08:57)
[2017-04-01] MEDS: INSULIN REGULAR 100 UNIT/ML SUBCUT SCH (08:58)
[2017-04-01] MEDS ORDERED: FUROSEMIDE 40 MG TABLET PO SCH (09:00)
[2017-04-01] MEDS: predniSONE 5 MG TABLET PO SCH (11:29)
[2017-04-01] MEDS: GENTAMICIN 0.1% OINT 15 GM TUBE TOP SCH (11:29)
--- NOTE | 2017-04-01 11:33 | Discharge Summary ---
Hospital Course - Hospital Course Hospital Course: 71 year old female with past medical history significant for chronic wound, and paroxysmal A. fib who comes to the hospital complaining of shortness of breath. She was admitted with acute on chronic diastolic congestive heart failure, and was admitted for IV diuretics. Has history of permanent atrial fibrillation and follows with Dr. Coronado. Dr. Mota from cardiac service was following. Her symptoms improved dramatically after IV Lasix treatment. Her orthopnea and dyspnea has resolved she is ambulating. She has reached maximal hospital benefit and being discharged home in improved and stable condition. Total discharge time 20 minutes. - Time spent with patient Time with patient DS: Less than 30 minutes Diagnosis - Discharge Diagnosis (1) Congestive heart failure Status: Resolved Specialty Discharge - Follow Up or Referrals Follow up with: Leighton Coronado MD [Physician] - 2 Weeks (2 week follow-up with Dr. Leighton coronado.) Discharge Plan - Discharge Data Condition at Discharge: Stable Discharge Diet: low salt diet Activity: resume usual activities as tolerated Hygiene: no restrictions Weight Bearing at Discharge: full weight bearing Driving: no restrictions Contact your physician if you experience:: Shortness of breath - Discharge Medications Continue HYDROcodone/ACETAMIN 7.5-325 [[place] 7.5-325] 7.5 tablet PO Q6H PRN PRN Reason: Pain Levothyroxine Tab [Synthroid Tab] 50 mcg PO BEDTIME Metformin HCl [Metformin HCl ER] 1,000 mg PO BID Zafirlukast [Accolate] 20 mg PO BIDAC Multivitamin [Multivitamins] 1 each PO DAILY Celecoxib [Celebrex] 200 mg PO DAILY Losartan [Cozaar] 50 mg PO DAILY #30 tablet Furosemide Tab [Lasix Tab] 40 mg PO DAILY #30 tablet dimenhyDRINATE [Dimenhydrinate] 1 tablet PO BID Aspirin EC Tab 81 mg PO DAILY #90 tablet Nitroglycerin Sl Tab [Nitrostat] 0.4 mg SL Q5M PRN #0 tablet PRN Reason: Chest Pain predniSONE TAB [PredniSONE] 5 mg PO DAILY tablet Magnesium Chloride [Slow Mag] 128 mg PO BID tablet Atenolol [Tenormin] 25 mg PO BID tablet Fenofibrate [Tricor] 140 mg PO DAILY Diltiazem Cd Cap [Cardizem CD] 120 mg PO BID - Follow Up or Referral Follow Up: Leighton Coronado MD [Physician] - 2 Weeks (2 week follow-up with Dr. Leighton coronado.) - Forms/Instructions Exam - Constitutional Vitals: Period Temp Pulse Resp BP Sys/[place] Pulse Ox Last 24 Hr 97.0 F-98.2 F 57-84 16-20 105-133/53-70 91-96 Exam: General: No Acute Distress HEENT: Normocephalic, atraumatic, Extra ocular movements intact Neck: Supple, No JVD Chest: Clear to auscultation B/L CV: S1 + S2 audible without murmur, gallop or rub Abd: soft, NT, Non-distended, BS + Ext: No edema Skin: No purpura, bruising or rash Rheumatologic: No Joint deformities Neurologic: Strength 5/5 all extremities, no gross sensory deficits Discharge Results Procedures and tests throughout hospitalization: Pending Orders 03/29/17 17:08 Blood Culture Stat 04/02/17 04:00 BMP w/ Mg [Basic Metabolic Panel w/Mg] IN AM Comp Blood Count Auto Diff IN AM 04/03/17 04:00 BMP w/ Mg [Basic Metabolic Panel w/Mg] IN AM Comp Blood Count Auto Diff IN AM Labs on day of discharge: Labs from last 24 hours 04/01/17 04/01/17 04/01/17 07:12 04:26 04:26 WBC 10.4 RBC 3.88 Hgb 10.5 L Hct 34.7 L MCV 89.4 MCH 27 MCHC 30.3 L RDW 15.3 Plt Count 339 MPV 12.3 H Neut % (Auto) 55.5 Lymph % (Auto) 30.2 [place] % (Auto) 4.9 Eos % (Auto) 7.3 Baso % (Auto) 1.2 H Neut # (Auto) 5.8 Lymph # (Auto) 3.2 [place] # (Auto) 0.5 Eos # (Auto) 0.8 Baso # (Auto) 0.1 Immature Gran % 0.9 Nucleated RBC % 0.0 Immature Gran # 0.09 Nucleated RBCs # 0.00 Sodium 138 Potassium 4.4 Chloride 103 Carbon Dioxide 25 Anion Gap 14.4 BUN 32 H Creatinine 1.80 H GFR Calculation 35 BUN/Creatinine Ratio 17.00 Glucose 118 H POC Glucose 130 H Calculated Osmolality 282.7 Calcium 9.1 Magnesium 1.8 03/31/17 03/31/17 03/31/17 20:12 16:12 11:39 WBC RBC Hgb Hct MCV MCH MCHC RDW Plt Count MPV Neut % (Auto) Lymph % (Auto) [place] % (Auto) Eos % (Auto) Baso % (Auto) Neut # (Auto) Lymph # (Auto) [place] # (Auto) Eos # (Auto) Baso # (Auto) Immature Gran % Nucleated RBC % Immature Gran # Nucleated RBCs # Sodium Potassium Chloride Carbon Dioxide Anion Gap BUN Creatinine GFR Calculation BUN/Creatinine Ratio Glucose POC Glucose 171 H 186 H 155 H Calculated Osmolality Calcium Magnesium Preliminary micro results at discharge 03/29/17 17:08 Blood Culture - Preliminary Blood No growth at 1 day 03/29/17 17:08 Blood Culture - Preliminary Blood No growth at 1 day DS: Provider Date of admission: 03/29/17 18:29 Primary care physician: . Marjorie PCP Attending physician on admission: Mahamed Koehler MD Consults: 03/29/17 19:17 Consult to Physician [CONS] Routine Comment: Consulting Provider: Cardiology - [facility] Consult to Specialist Group: Cardiology When should Consulting Provider be notified: In am Person Notified: Ragini Date Notified: 03/30/17 Time Notified: 07:55 03/29/17 20:55 Consult to Physician [CONS] Routine Comment: patient of yours Consulting Provider: Sadi Banerjee Consult to Specialist Group: Surgery Person Notified: Ivonne Date Notified: 03/30/17 Time Notified: 09:05 Consult to Wound Care - [place] [CONS] Routine Reason for Wound Care: Wound Care Management Discharging clinician: Sukhwinder Kulkarni MD
[2017-04-01 11:35] VITALS: BP 102/53
--- NOTE | 2017-04-03 05:25 | Order Completion Report ---
See report scanned to EMR
== END 2017-04-01 12:35 | disposition home or self-care (01) | DRG 291 ==
LOC: N.ED 16:09 → N.EDINP 18:29 → SUATTDRO 18:29 → N.TELES 19:46
PROVIDERS: ADMIT Internal Medicine; ATTEND Hospitalist

== ENCOUNTER 2017-05-19 16:03 | Inpatient (IN) ==
[2017-05-19] MEDS ORDERED: NITROGLYCERIN SL 0.4 MG TABLET SL PRN (23:52)
[2017-05-20 01:33] LABS: Barbiturates Screen,Urine Negative (Negative); Benzodiazepines Screen,Urine Negative (Negative); Cannabinoid Screen,Urine Negative (Negative); Opiate Screen,Urine Positive (Negative); Phencyclidine Screen,Urine Negative (Negative)
[2017-05-20 01:51] LABS: Risk Ratio 4.32; Troponin I Only 0.045 NG/ML (0.00-0.045)
[2017-05-20 06:00] LABS: Basophils # 0.1 10*3/uL (0.0-0.2); Basophils % 0.7 % (0.0-0.8); Eosinophils # 0.4 10*3/uL (0.0-0.87); Eosinophils % 3.3 % (0.00-10.9); Hematocrit 33.9 VOL% (35.7-47.0); Hemoglobin 10.3 GM/DL (12.0-16.0); Immature Granulocytes % 0.5 %; Immature Granulocytes Absolute 0.06 #; Lymphocytes % 17.6 % (21.3-54.2); Mean Corpuscular HGB Conc 30.4 GM/DL (32-36); Mean Corpuscular Hemoglobin 25 PG (27-34); Mean Corpuscular Volume 80.7 FL (87-102); Mean Platelet Volume 10.4 FL (9.6-12.0); Monocytes # 0.6 10*3/uL (0.11-0.8); Monocytes % 5.2 % (1.7-12.7); Neutrophils # 8.3 10*3/uL (1.4-7.4); Neutrophils % 72.7 % (38.7-73.9); Platelet Count 435 T/CUMM (130-400); Red Cell Distribution Width 16.2 % (9.3-17.3); White Blood Count 11.4 T/CUMM (4-12)
[2017-05-20] MEDS: LEVOTHYROXINE 50 MCG TABLET PO SCH (06:00)
[2017-05-20] MEDS ORDERED: DEXTROSE 50% 25 GM/50 ML VIAL IV PRN (07:00)
[2017-05-20] MEDS ORDERED: GLUCAGON 1 MG VIAL IM PRN (07:00)
[2017-05-20 07:35] LABS: Calcium 9.3 MG/DL (8.5-10.1); Osmolality,Calculated 283.1 MOS/KG (273-304); Potassium 4.5 MMOL/L (3.5-5.1)
[2017-05-20] MEDS: ZAFIRLUKAST 20 MG TABLET PO SCH ×2 (09:01→22:05)
[2017-05-20] MEDS: SODIUM BICARBONATE 650 MG TABLET PO SCH ×3 (09:01→22:05)
[2017-05-20] MEDS: DILTIAZEM CD 120 MG CAPSULE PO SCH ×2 (09:01→22:05)
[2017-05-20] MEDS: MAGNESIUM CHLORIDE 64 MG TABLET PO SCH ×2 (09:01→22:05)
[2017-05-20] MEDS: FUROSEMIDE 40 MG TABLET PO SCH (09:01)
[2017-05-20] MEDS: INSULIN LISPRO 100 UNIT/ML SUBCUT SCH ×4 (09:02→22:06)
[2017-05-20] MEDS: ASPIRIN EC 81 MG TABLET PO SCH (09:02)
[2017-05-20] MEDS: ATENOLOL 25 MG TABLET PO SCH ×2 (09:02→22:06)
[2017-05-20] MEDS: predniSONE 5 MG TABLET PO SCH (09:02)
[2017-05-20] MEDS: MULTIVITAMIN (CENTRUM) TABLET PO SCH (09:02)
[2017-05-20] MEDS: DOCUSATE SODIUM 100 MG/10 ML UDCUP PO SCH (09:02)
[2017-05-20] MEDS: PANTOPRAZOLE 40 MG TABLET PO SCH (09:02)
[2017-05-20] MEDS: FENOFIBRATE 160 MG TABLET PO SCH (22:06)
[2017-05-20] MEDS: APIXABAN 2.5 MG TABLET PO SCH (22:06)
[2017-05-21] MEDS: INSULIN LISPRO 100 UNIT/ML SUBCUT SCH ×4 (09:09→22:18)
[2017-05-21] MEDS: DOCUSATE SODIUM 100 MG/10 ML UDCUP PO SCH (09:27)
[2017-05-21] MEDS: ASPIRIN EC 81 MG TABLET PO SCH (09:27)
[2017-05-21] MEDS: PANTOPRAZOLE 40 MG TABLET PO SCH (09:28)
[2017-05-21] MEDS: ZAFIRLUKAST 20 MG TABLET PO SCH ×2 (09:28→22:20)
[2017-05-21] MEDS: ATENOLOL 25 MG TABLET PO SCH ×2 (09:28→22:19)
[2017-05-21] MEDS: SODIUM BICARBONATE 650 MG TABLET PO SCH ×3 (09:28→22:19)
[2017-05-21] MEDS: MULTIVITAMIN (CENTRUM) TABLET PO SCH (09:28)
[2017-05-21] MEDS: DILTIAZEM CD 120 MG CAPSULE PO SCH ×2 (09:28→22:20)
[2017-05-21] MEDS: LEVOTHYROXINE 50 MCG TABLET PO SCH (09:28)
[2017-05-21] MEDS: APIXABAN 2.5 MG TABLET PO SCH ×2 (09:28→22:19)
[2017-05-21] MEDS: MAGNESIUM CHLORIDE 64 MG TABLET PO SCH ×2 (09:28→22:20)
[2017-05-21] MEDS: FUROSEMIDE 40 MG TABLET PO SCH (09:28)
[2017-05-21] MEDS: predniSONE 5 MG TABLET PO SCH (09:29)
[2017-05-21] MEDS: FENOFIBRATE 160 MG TABLET PO SCH (22:20)
[2017-05-22] MEDS: INSULIN LISPRO 100 UNIT/ML SUBCUT SCH ×2 (08:47→12:04)
[2017-05-22] MEDS: LEVOTHYROXINE 50 MCG TABLET PO SCH (08:48)
[2017-05-22] MEDS: APIXABAN 2.5 MG TABLET PO SCH (08:48)
[2017-05-22] MEDS: ASPIRIN EC 81 MG TABLET PO SCH (08:48)
[2017-05-22] MEDS: ATENOLOL 25 MG TABLET PO SCH (08:48)
[2017-05-22] MEDS: predniSONE 5 MG TABLET PO SCH (08:48)
[2017-05-22] MEDS: PANTOPRAZOLE 40 MG TABLET PO SCH (08:48)
[2017-05-22] MEDS: DILTIAZEM CD 120 MG CAPSULE PO SCH (08:48)
[2017-05-22] MEDS: FUROSEMIDE 40 MG TABLET PO SCH (08:49)
[2017-05-22] MEDS: SODIUM BICARBONATE 650 MG TABLET PO SCH (08:49)
[2017-05-22] MEDS: MAGNESIUM CHLORIDE 64 MG TABLET PO SCH (08:49)
[2017-05-22] MEDS: ZAFIRLUKAST 20 MG TABLET PO SCH (08:49)
[2017-05-22] MEDS: DOCUSATE SODIUM 100 MG/10 ML UDCUP PO SCH (08:49)
[2017-05-22] MEDS: MULTIVITAMIN (CENTRUM) TABLET PO SCH (08:49)
[2017-05-22] MEDS ORDERED: GENTAMICIN 0.1% CREAM 15 GM TUBE TOP SCH (10:30)
[2017-05-22 12:31] VITALS: BP 118/75
== END 2017-05-22 15:13 | DRG 64 ==
LOC: N.TELEN 20:45 → SUATTDRO 20:45
PROVIDERS: ADMIT Internal Medicine Cardiovascular Disease; ATTEND Internal Medicine

== ENCOUNTER 2017-11-09 06:04 | Inpatient (IN) ==
[2017-11-07 13:38] LABS: Basophils # 0.1 10*3/uL (0.0-0.2); Eosinophils # 0.3 10*3/uL (0.0-0.87); Eosinophils % 2.4 % (0.00-10.9); Hematocrit 45.2 VOL% (35.7-47.0); Hemoglobin 14.2 GM/DL (12.0-16.0); Immature Granulocytes % 1.1 %; Immature Granulocytes Absolute 0.13 #; Lymphocytes % 16.8 % (21.3-54.2); Mean Corpuscular HGB Conc 31.4 GM/DL (32-36); Mean Corpuscular Hemoglobin 27 PG (27-34); Mean Corpuscular Volume 84.6 FL (87-102); Mean Platelet Volume 9.7 FL (9.6-12.0); Monocytes # 0.9 10*3/uL (0.11-0.8); Monocytes % 7.3 % (1.7-12.7); Neutrophils # 8.5 10*3/uL (1.4-7.4); Neutrophils % 71.4 % (38.7-73.9); Platelet Count 349 T/CUMM (130-400); Red Blood Count 5.34 MC/CUMM (3.8-5.5); Red Cell Distribution Width 16.3 % (9.3-17.3); White Blood Count 11.9 T/CUMM (4-12)
[2017-11-07 13:47] LABS: PT Patient Result 10.7 SECS; Partial Thromboplastin Time 23.1 SECS (0-40)
[2017-11-07 14:19] LABS: Albumin 3.7 G/DL (3.4-5.0); Bilirubin,Total 0.5 MG/DL (0.2-1.0); Calcium 9.8 MG/DL (8.5-10.1); Osmolality,Calculated 284.5 MOS/KG (273-304); Potassium 4.7 MMOL/L (3.5-5.1); Total Protein 7.5 G/DL (6.4-8.3)
[~2017-11-09 06:04] MED LIST changes: +CIPROFLOXACIN INJ 400 MG in PREMIX 1 EACH IV ONE; -LIDOCAINE 2% 5 ML VIAL ONE; -PROPOFOL 200 MG/20 ML VIAL IV ONE
[2017-11-09] MEDS ORDERED: ONDANSETRON ODT 4 MG TABLET PO ONE (07:56)
[2017-11-09] MEDS ORDERED: ONDANSETRON 4 MG TABLET ONE (08:01)
[2017-11-09] MEDS ORDERED: LIDOCAINE 1% 50 ML VIAL ONE (10:20)
[2017-11-09] MEDS ORDERED: BUPIVACAINE 0.5% 50 ML VIAL ONE (10:20)
[2017-11-09] MEDS: LACTATED RINGERS 1,000 ML IV SCH ×2 (10:45→15:21)
[2017-11-09] MEDS ORDERED: PROPOFOL 200 MG/20 ML VIAL IV ONE (11:20)
[2017-11-09] MEDS ORDERED: MIDAZOLAM 2 MG/2 ML VIAL ONE (11:20)
[2017-11-09] MEDS ORDERED: ONDANSETRON 4 MG/2 ML VIAL ONE (11:21)
[2017-11-09] MEDS ORDERED: SODIUM CHLORIDE 0.9% 100 ML IV ONE (11:21)
[2017-11-09] MEDS ORDERED: PHENYLEPHRINE 10 MG/1 ML VIAL IV ONE (11:21)
[2017-11-09] MEDS ORDERED: fentaNYL 100 MCG/2 ML VIAL ONE (11:21)
[2017-11-09] MEDS ORDERED: ACETAMINOPHEN 325 MG TABLET PO PRN (12:19)
[2017-11-09] MEDS ORDERED: GLUCAGON 1 MG VIAL IM PRN (12:19)
[2017-11-09] MEDS ORDERED: DEXTROSE 50% 25 GM/50 ML VIAL IV PRN (12:19)
[2017-11-09] MEDS ORDERED: HYDROmorphone 2 MG/1 ML VIAL IV PRN (12:19)
[2017-11-09] MEDS ORDERED: ONDANSETRON 4 MG/2 ML VIAL IV PRN (12:19)
[2017-11-09] MEDS ORDERED: NITROGLYCERIN SL 0.4 MG TABLET SL PRN (12:26)
[2017-11-09] MEDS ORDERED: CHLORHEXIDINE 4% SOLN 118 ML BOTTLE TOP ONE (12:28)
[2017-11-09] MEDS ORDERED: SKIN HEALING OINT (AQUAPHOR) 50 GM TUBE TOP PRN (12:28)
[2017-11-09] MEDS ORDERED: BUPIVACAINE MPF 0.25% 30 ML VIAL ONE (12:30)
[2017-11-09] MEDS: CIPROFLOXACIN INJ 400 MG in PREMIX 1 EACH IV SCH (14:40)
[2017-11-09] MEDS: SODIUM CHLORIDE 0.45% 1,000 ML IV SCH (14:48)
[2017-11-09] MEDS: INSULIN REGULAR 100 UNIT/ML SUBCUT SCH ×2 (17:04→20:58)
[2017-11-09] MEDS: ATENOLOL 25 MG TABLET PO SCH (20:55)
[2017-11-09] MEDS: SODIUM BICARBONATE 650 MG TABLET PO SCH (20:55)
[2017-11-09] MEDS: ZAFIRLUKAST 20 MG TABLET PO SCH (20:55)
[2017-11-09] MEDS: DILTIAZEM CD 120 MG CAPSULE PO SCH (20:55)
[2017-11-09] MEDS ORDERED: FENOFIBRATE 160 MG TABLET PO SCH (21:00)
[2017-11-09] MEDS ORDERED: ENOXAPARIN 30 MG/0.3 ML SYRINGE SUBCUT SCH (21:00)
[2017-11-10] MEDS: CIPROFLOXACIN INJ 400 MG in PREMIX 1 EACH IV SCH (01:57)
[2017-11-10 06:02] LABS: Basophils # 0.1 10*3/uL (0.0-0.2); Basophils % 0.9 % (0.0-0.8); Eosinophils # 0.4 10*3/uL (0.0-0.87); Eosinophils % 4.3 % (0.00-10.9); Hemoglobin 12.3 GM/DL (12.0-16.0); Immature Granulocytes % 0.7 %; Immature Granulocytes Absolute 0.06 #; Lymphocytes # 2.1 10*3/uL (1.4-4.0); Lymphocytes % 24.3 % (21.3-54.2); Mean Corpuscular HGB Conc 30.8 GM/DL (32-36); Mean Corpuscular Hemoglobin 26 PG (27-34); Mean Corpuscular Volume 85.8 FL (87-102); Mean Platelet Volume 10.3 FL (9.6-12.0); Monocytes # 0.9 10*3/uL (0.11-0.8); Monocytes % 10.3 % (1.7-12.7); Neutrophils % 59.5 % (38.7-73.9); Platelet Count 286 T/CUMM (130-400); Red Blood Count 4.66 MC/CUMM (3.8-5.5); White Blood Count 8.5 T/CUMM (4-12)
[2017-11-10] MEDS: SODIUM CHLORIDE 0.45% 1,000 ML IV SCH ×2 (06:24→10:43)
[2017-11-10 06:36] LABS: Calcium 8.4 MG/DL (8.5-10.1); Osmolality,Calculated 289.1 MOS/KG (273-304)
[2017-11-10] MEDS ORDERED: LEVOTHYROXINE 50 MCG TABLET PO SCH (07:00)
[2017-11-10] MEDS: INSULIN REGULAR 100 UNIT/ML SUBCUT SCH ×2 (08:29→12:56)
[2017-11-10] MEDS: ZAFIRLUKAST 20 MG TABLET PO SCH (08:30)
[2017-11-10] MEDS: ATENOLOL 25 MG TABLET PO SCH (08:30)
[2017-11-10] MEDS: DILTIAZEM CD 120 MG CAPSULE PO SCH (08:30)
[2017-11-10] MEDS: SODIUM BICARBONATE 650 MG TABLET PO SCH (08:30)
[2017-11-10] MEDS ORDERED: SODIUM HYPOCHLORITE 0.25% IRRIG 473 ML BOTTLE TOP SCH (09:00)
[2017-11-10] MEDS ORDERED: FUROSEMIDE 40 MG TABLET PO SCH (09:00)
[2017-11-10] MEDS ORDERED: BACITRACIN OINT 0.9 GM PACK TOP SCH (09:00)
[2017-11-10] MEDS ORDERED: ASPIRIN EC 81 MG TABLET PO SCH (09:00)
[2017-11-10] MEDS ORDERED: DOCUSATE SODIUM 100 MG CAPSULE PO SCH (09:00)
[2017-11-10] MEDS ORDERED: predniSONE 5 MG TABLET PO SCH (09:00)
[2017-11-10] MEDS ORDERED: PANTOPRAZOLE 40 MG TABLET PO SCH (09:00)
[2017-11-10 11:50] VITALS: BP 125/69
== END 2017-11-10 14:54 | disposition home health service (06) | DRG 617 ==
LOC: N.OR 06:04 → N.SDSINP 06:05 → N.TELEN 12:19
PROVIDERS: ADMIT Specialist; ATTEND Specialist

== ENCOUNTER 2018-04-09 15:29 | Inpatient (IN) ==
[2018-04-09] MEDS ORDERED: CLINDAMYCIN INJ 600 MG in PREMIX 1 EACH IV STA (17:07)
[2018-04-09] MEDS ORDERED: CLINDAMYCIN INJ 50 ML IV ONE (17:22)
[2018-04-09 17:40] LABS: Basophils # 0.1 10*3/uL (0.0-0.2); Basophils % 0.7 % (0.0-0.8); Eosinophils # 0.1 10*3/uL (0.0-0.87); Eosinophils % 0.7 % (0.00-10.9); Hematocrit 42.8 VOL% (35.7-47.0); Hemoglobin 13.4 GM/DL (12.0-16.0); Immature Granulocytes Absolute 0.28 #; Lymphocytes # 1.4 10*3/uL (1.4-4.0); Lymphocytes % 10.3 % (21.3-54.2); Mean Corpuscular HGB Conc 31.3 GM/DL (32-36); Mean Corpuscular Hemoglobin 28 PG (27-34); Mean Corpuscular Volume 88.1 FL (87-102); Mean Platelet Volume 9.9 FL (9.6-12.0); Monocytes # 1.3 10*3/uL (0.11-0.8); Monocytes % 9.1 % (1.7-12.7); Neutrophils # 10.6 10*3/uL (1.4-7.4); Neutrophils % 77.2 % (38.7-73.9); Platelet Count 368 T/CUMM (130-400); Red Blood Count 4.86 MC/CUMM (3.8-5.5); Red Cell Distribution Width 14.4 % (9.3-17.3); White Blood Count 13.8 T/CUMM (4-12)
[2018-04-09 18:03] LABS: Calcium 9.2 MG/DL (8.5-10.1); Lactic Acid 2.5 MMOL/L (0.4-2.0); Osmolality,Calculated 281.7 MOS/KG (273-304); Potassium 4.7 MMOL/L (3.5-5.1); Total Protein 7.9 G/DL (6.4-8.3)
[2018-04-09] MEDS ORDERED: GLUCAGON 1 MG VIAL IM PRN (21:25)
[2018-04-09] MEDS ORDERED: ACETAMINOPHEN 325 MG TABLET PO PRN (21:25)
[2018-04-09] MEDS ORDERED: ONDANSETRON 4 MG/2 ML VIAL IV PRN (21:25)
[2018-04-09] MEDS ORDERED: MORPHINE 4 MG/1 ML VIAL IV PRN (21:25)
[2018-04-09] MEDS ORDERED: DEXTROSE 50% 25 GM/50 ML VIAL IV PRN (21:25)
[2018-04-09] MEDS ORDERED: ENOXAPARIN 30 MG/0.3 ML SYRINGE SUBCUT SCH (21:30)
[2018-04-09] MEDS ORDERED: VANCOMYCIN INJ 1,500 MG in SODIUM CHLORIDE 0.9% 500 ML IV ONE (22:00)
[2018-04-10 04:26] LABS: Basophils # 0.1 10*3/uL (0.0-0.2); Basophils % 0.8 % (0.0-0.8); Eosinophils # 0.3 10*3/uL (0.0-0.87); Eosinophils % 2.3 % (0.00-10.9); Hematocrit 40.5 VOL% (35.7-47.0); Hemoglobin 12.4 GM/DL (12.0-16.0); Immature Granulocytes % 2.1 %; Immature Granulocytes Absolute 0.25 #; Lymphocytes # 2.2 10*3/uL (1.4-4.0); Lymphocytes % 18.7 % (21.3-54.2); Mean Corpuscular HGB Conc 30.6 GM/DL (32-36); Mean Corpuscular Hemoglobin 27 PG (27-34); Mean Corpuscular Volume 88.8 FL (87-102); Mean Platelet Volume 10.2 FL (9.6-12.0); Monocytes # 1.1 10*3/uL (0.11-0.8); Monocytes % 9.1 % (1.7-12.7); Platelet Count 351 T/CUMM (130-400); Red Blood Count 4.56 MC/CUMM (3.8-5.5); Red Cell Distribution Width 14.5 % (9.3-17.3); White Blood Count 11.9 T/CUMM (4-12)
[2018-04-10 05:03] LABS: Calcium 8.6 MG/DL (8.5-10.1); Osmolality,Calculated 278.5 MOS/KG (273-304); Potassium 3.7 MMOL/L (3.5-5.1); Thyroid Stimulating Hormone 2.59 uIU/ml (0.358-3.74)
[2018-04-10] MEDS: INSULIN REGULAR 100 UNIT/ML SUBCUT SCH ×4 (07:23→22:38)
[2018-04-10] MEDS ORDERED: CHLORHEXIDINE 4% SOLN 118 ML BOTTLE TOP ONE (08:58)
[2018-04-10] MEDS ORDERED: SKIN HEALING OINT (AQUAPHOR) 50 GM TUBE TOP PRN (08:58)
[2018-04-10] MEDS: ATENOLOL 25 MG TABLET PO SCH ×2 (10:37→21:00)
[2018-04-10] MEDS: SODIUM BICARBONATE 650 MG TABLET PO SCH ×2 (10:37→20:59)
[2018-04-10] MEDS: FUROSEMIDE 40 MG TABLET PO SCH (10:37)
[2018-04-10] MEDS: FENOFIBRATE 145 MG TABLET PO SCH (10:38)
[2018-04-10] MEDS: predniSONE 5 MG TABLET PO SCH (10:39)
[2018-04-10] MEDS: DILTIAZEM CD 120 MG CAPSULE PO SCH ×2 (10:39→21:00)
[2018-04-10] MEDS: APIXABAN 2.5 MG TABLET PO SCH ×2 (10:39→20:59)
[2018-04-10] MEDS: ASPIRIN EC 81 MG TABLET PO SCH (10:39)
[2018-04-10] MEDS: ZAFIRLUKAST 20 MG TABLET PO SCH ×2 (10:39→20:59)
[2018-04-10] MEDS: DOCUSATE SODIUM 100 MG/10 ML UDCUP PO SCH (10:42)
[2018-04-10] MEDS: GENTAMICIN 0.1% OINT 15 GM TUBE TOP SCH ×3 (10:42→22:39)
[2018-04-10] MEDS: ACETIC ACID 0.25% IRRIGATION 1,000 ML BOTTLE IRRIG SCH ×2 (10:42→22:37)
[2018-04-10] MEDS: LEVOTHYROXINE 50 MCG TABLET PO SCH (21:00)
[2018-04-10] MEDS: VANCOMYCIN INJ 1,500 MG in SODIUM CHLORIDE 0.9% 500 ML IV SCH (21:01)
[2018-04-11] MEDS: INSULIN REGULAR 100 UNIT/ML SUBCUT SCH ×4 (07:35→21:45)
[2018-04-11 07:47] LABS: Basophils # 0.1 10*3/uL (0.0-0.2); Basophils % 0.7 % (0.0-0.8); Eosinophils # 0.5 10*3/uL (0.0-0.87); Eosinophils % 4.6 % (0.00-10.9); Hematocrit 41.8 VOL% (35.7-47.0); Hemoglobin 12.9 GM/DL (12.0-16.0); Immature Granulocytes % 1.7 %; Immature Granulocytes Absolute 0.17 #; Lymphocytes % 29.5 % (21.3-54.2); Mean Corpuscular HGB Conc 30.9 GM/DL (32-36); Mean Corpuscular Hemoglobin 28 PG (27-34); Mean Corpuscular Volume 89.7 FL (87-102); Mean Platelet Volume 9.8 FL (9.6-12.0); Monocytes # 0.7 10*3/uL (0.11-0.8); Monocytes % 6.7 % (1.7-12.7); Neutrophils # 5.7 10*3/uL (1.4-7.4); Neutrophils % 56.8 % (38.7-73.9); Platelet Count 376 T/CUMM (130-400); Red Blood Count 4.66 MC/CUMM (3.8-5.5); Red Cell Distribution Width 14.5 % (9.3-17.3); White Blood Count 10.1 T/CUMM (4-12)
[2018-04-11 07:55] LABS: Calcium 8.9 MG/DL (8.5-10.1); Osmolality,Calculated 284.3 MOS/KG (273-304); Potassium 3.9 MMOL/L (3.5-5.1)
[2018-04-11] MEDS: FUROSEMIDE 40 MG TABLET PO SCH (08:37)
[2018-04-11] MEDS: APIXABAN 2.5 MG TABLET PO SCH ×2 (08:38→21:40)
[2018-04-11] MEDS: ATENOLOL 25 MG TABLET PO SCH ×2 (08:38→21:46)
[2018-04-11] MEDS: DILTIAZEM CD 120 MG CAPSULE PO SCH ×2 (08:38→21:45)
[2018-04-11] MEDS: SODIUM BICARBONATE 650 MG TABLET PO SCH ×2 (08:39→21:41)
[2018-04-11] MEDS: FENOFIBRATE 145 MG TABLET PO SCH (08:39)
[2018-04-11] MEDS: ASPIRIN EC 81 MG TABLET PO SCH (08:39)
[2018-04-11] MEDS: predniSONE 5 MG TABLET PO SCH (08:39)
[2018-04-11] MEDS: ZAFIRLUKAST 20 MG TABLET PO SCH ×2 (08:39→21:39)
[2018-04-11] MEDS: DOCUSATE SODIUM 100 MG/10 ML UDCUP PO SCH (08:40)
[2018-04-11] MEDS: ACETIC ACID 0.25% IRRIGATION 1,000 ML BOTTLE IRRIG SCH ×2 (14:00→21:45)
[2018-04-11] MEDS: GENTAMICIN 0.1% OINT 15 GM TUBE TOP SCH ×3 (14:00→21:45)
[2018-04-11] MEDS: LEVOTHYROXINE 50 MCG TABLET PO SCH (21:44)
[2018-04-11] MEDS: VANCOMYCIN INJ 1,500 MG in SODIUM CHLORIDE 0.9% 500 ML IV SCH (21:46)
[2018-04-12 07:33] LABS: Basophils # 0.1 10*3/uL (0.0-0.2); Basophils % 0.6 % (0.0-0.8); Eosinophils # 0.5 10*3/uL (0.0-0.87); Eosinophils % 3.9 % (0.00-10.9); Hematocrit 40.9 VOL% (35.7-47.0); Hemoglobin 12.6 GM/DL (12.0-16.0); Immature Granulocytes % 0.9 %; Immature Granulocytes Absolute 0.12 #; Lymphocytes # 2.4 10*3/uL (1.4-4.0); Lymphocytes % 18.6 % (21.3-54.2); Mean Corpuscular HGB Conc 30.8 GM/DL (32-36); Mean Corpuscular Hemoglobin 28 PG (27-34); Mean Corpuscular Volume 89.1 FL (87-102); Monocytes # 0.8 10*3/uL (0.11-0.8); Neutrophils # 9.1 10*3/uL (1.4-7.4); Platelet Count 364 T/CUMM (130-400); Red Blood Count 4.59 MC/CUMM (3.8-5.5); Red Cell Distribution Width 14.4 % (9.3-17.3)
[2018-04-12 08:00] LABS: Calcium 9.1 MG/DL (8.5-10.1); Osmolality,Calculated 281.4 MOS/KG (273-304); Potassium 4.4 MMOL/L (3.5-5.1)
[2018-04-12] MEDS: INSULIN REGULAR 100 UNIT/ML SUBCUT SCH ×4 (09:57→21:05)
[2018-04-12] MEDS: DILTIAZEM CD 120 MG CAPSULE PO SCH ×2 (10:00→21:04)
[2018-04-12] MEDS: FUROSEMIDE 40 MG TABLET PO SCH (10:00)
[2018-04-12] MEDS: FENOFIBRATE 145 MG TABLET PO SCH (10:00)
[2018-04-12] MEDS: ZAFIRLUKAST 20 MG TABLET PO SCH ×2 (10:00→21:04)
[2018-04-12] MEDS: ASPIRIN EC 81 MG TABLET PO SCH (10:01)
[2018-04-12] MEDS: ATENOLOL 25 MG TABLET PO SCH ×2 (10:01→21:04)
[2018-04-12] MEDS: DOCUSATE SODIUM 100 MG/10 ML UDCUP PO SCH (10:01)
[2018-04-12] MEDS: SODIUM BICARBONATE 650 MG TABLET PO SCH ×2 (10:01→21:04)
[2018-04-12] MEDS: predniSONE 5 MG TABLET PO SCH (10:01)
[2018-04-12] MEDS: APIXABAN 2.5 MG TABLET PO SCH ×2 (10:01→21:05)
[2018-04-12] MEDS: ACETIC ACID 0.25% IRRIGATION 1,000 ML BOTTLE IRRIG SCH ×2 (10:05→21:05)
[2018-04-12] MEDS: GENTAMICIN 0.1% OINT 15 GM TUBE TOP SCH ×3 (10:05→21:05)
[2018-04-12] MEDS ORDERED: LEVOFLOXACIN 500 MG TABLET PO SCH (15:00)
[2018-04-12] MEDS: VANCOMYCIN INJ 1,500 MG in SODIUM CHLORIDE 0.9% 500 ML IV SCH (16:01)
[2018-04-12] MEDS: LEVOTHYROXINE 50 MCG TABLET PO SCH (21:04)
[2018-04-13 06:33] LABS: Basophils # 0.1 10*3/uL (0.0-0.2); Basophils % 0.5 % (0.0-0.8); Eosinophils # 0.5 10*3/uL (0.0-0.87); Eosinophils % 4.1 % (0.00-10.9); Hematocrit 39.3 VOL% (35.7-47.0); Hemoglobin 12.1 GM/DL (12.0-16.0); Immature Granulocytes % 1.2 %; Immature Granulocytes Absolute 0.14 #; Lymphocytes # 2.4 10*3/uL (1.4-4.0); Lymphocytes % 20.6 % (21.3-54.2); Mean Corpuscular HGB Conc 30.8 GM/DL (32-36); Mean Corpuscular Hemoglobin 28 PG (27-34); Mean Corpuscular Volume 89.5 FL (87-102); Mean Platelet Volume 9.8 FL (9.6-12.0); Monocytes # 0.8 10*3/uL (0.11-0.8); Monocytes % 7.2 % (1.7-12.7); Neutrophils # 7.8 10*3/uL (1.4-7.4); Neutrophils % 66.4 % (38.7-73.9); Platelet Count 378 T/CUMM (130-400); Red Blood Count 4.39 MC/CUMM (3.8-5.5); Red Cell Distribution Width 14.1 % (9.3-17.3); White Blood Count 11.7 T/CUMM (4-12)
[2018-04-13] MEDS: INSULIN REGULAR 100 UNIT/ML SUBCUT SCH ×2 (07:24→11:30)
[2018-04-13] MEDS: SODIUM BICARBONATE 650 MG TABLET PO SCH (08:30)
[2018-04-13] MEDS: FUROSEMIDE 40 MG TABLET PO SCH (08:30)
[2018-04-13] MEDS: predniSONE 5 MG TABLET PO SCH (08:30)
[2018-04-13] MEDS: APIXABAN 2.5 MG TABLET PO SCH (08:30)
[2018-04-13] MEDS: ZAFIRLUKAST 20 MG TABLET PO SCH (08:31)
[2018-04-13] MEDS: ASPIRIN EC 81 MG TABLET PO SCH (08:31)
[2018-04-13] MEDS: DOCUSATE SODIUM 100 MG/10 ML UDCUP PO SCH (08:32)
[2018-04-13] MEDS: ATENOLOL 25 MG TABLET PO SCH (08:32)
[2018-04-13] MEDS: DILTIAZEM CD 120 MG CAPSULE PO SCH (08:34)
[2018-04-13] MEDS ORDERED: FENOFIBRATE 160 MG TABLET PO SCH (09:00)
[2018-04-13] MEDS: VANCOMYCIN INJ 1,500 MG in SODIUM CHLORIDE 0.9% 500 ML IV SCH (10:02)
[2018-04-13] MEDS: ACETIC ACID 0.25% IRRIGATION 1,000 ML BOTTLE IRRIG SCH (10:06)
[2018-04-13] MEDS: GENTAMICIN 0.1% OINT 15 GM TUBE TOP SCH (10:07)
[2018-04-13 11:41] VITALS: BP 127/74
== END 2018-04-13 15:15 | disposition home or self-care (01) | DRG 638 ==
LOC: N.ED 15:29 → N.3E 20:53
PROVIDERS: ADMIT Internal Medicine; ATTEND Internal Medicine